=== PATIENT | male | born 1940 | race Caucasian/White ===

== ENCOUNTER 2018-10-07 10:58 | Inpatient (IN) ==
[2018-10-07] MEDS ORDERED: ASPIRIN PO ONE (11:06)
[2018-10-07 11:27] LABS: BASO# 0.02 X1000 (0.0-0.2); BASO% 0.3 % (0.0-0.8); EOS# 0.11 X1000 (0.0-0.7); EOS% 1.4 % (0.0-10.0); HEMATOCRIT 45.4 % (42.0-52.0); HEMOGLOBIN 14.8 g/dL (14.0-18.0); IMM GRAN# 0.02 X1000 (0.0-0.04); IMM GRAN% 0.3 % (0.0-0.5); LYMPH# 1.41 X1000 (1.2-3.4); LYMPH% 18.3 % (20.5-51.1); MCH 29.9 PG (27-31); MCHC 32.6 g/dL (33-37); MCV 91.7 FL (81-99); MONO# 0.46 X1000 (0.11-0.59); MPV 9.7 FL (7.4-10.4); NEUT# 5.69 X1000 (1.4-6.5); NEUT% 73.7 % (42.2-75.2); PLT 211 X1000 (130-400); RBC 4.95 XMIL (4.7-6.1); RDW 12.8 % (11.5-14.5); WBC 7.71 X1000 (4.8-10.8)
[2018-10-07] MEDS ORDERED: ROCEPHIN 1 GM in NS 50 ML IV ONE (11:38)
[2018-10-07] MEDS ORDERED: DUONEB (A & A) INH ONE (11:38)
[2018-10-07] MEDS ORDERED: SOLU-MEDROL IV ONE (11:38)
[2018-10-07 11:44] LABS: INR 1.06; PROTIME 14.3 Seconds (11.0-16.0)
[2018-10-07 11:45] LABS: PTT 40.6 Seconds (22.3-41.8)
[2018-10-07 11:49] LABS: AGAP 10; ALBUMIN 3.7 g/dL (3.5-5.0); ALKALINE PHOSPHATASE 89 U/L (32-122); BUN 13 mg/dL (8-22); CALCIUM 8.7 mg/dL (8.8-10.2); CHLORIDE 103 mmol/L (98-107); CK PROFILE 77 U/L (24-204); COSMO 287; CREATININE 0.7 mg/dL (0.7-1.2); ESTIMATED GFR > 60; GLUCOSE 165 mg/dL (70-104); GOT 18 U/L (10-34); GPT 12 U/L (10-44); POTASSIUM 4.4 mmol/L (3.5-5.1); SODIUM 142 mmol/L (136-145); TCO2 28 mmol/L (25-35)
--- NOTE | 2018-10-07 11:59 | Diag Imaging Result Doc PS360 ---
CHEST-2 VIEWS - 10/07/2018 INDICATION: dyspnea COMPARISON: 09/27/2018 FINDINGS: There are new extensive bibasilar infiltrates with faint curly B lines. There is cardiomegaly. There is blunting of the costophrenic angles suggesting trace pleural effusions. IMPRESSION: Cardiomegaly, pulmonary edema in the lung bases, trace pleural effusions. Electronically signed by Rivas Scott 10/07/2018 11:57 AM
--- NOTE | 2018-10-07 12:17 | EKG Report ---
Test Performed on : 10/07/2018 11:10:30 AM Test Reason : dyspnea Blood Pressure : / mmHG Vent. Rate : 108 BPM Atrial Rate : 267 BPM P-R Int : 000 ms QRS Dur : 096 ms QT Int : 310 ms P-R-T Axes : 000 068 162 degrees QTc Int : 415 ms Atrial fibrillation. with rapid ventricular response. Nonspecific ST and T wave abnormality Abnormal ECG When compared with ECG of 31-OCT-2017 02:25, Atrial fibrillation. has replaced Sinus rhythm. ST now depressed in Lateral leads Nonspecific T wave abnormality, worse in Inferior leads T wave inversion now evident in Lateral leads Unconfirmed Result
[2018-10-07 12:31] LABS: BE 4.7 mmoll (-3.0-3.0); BLOOD TYPE ARTERIAL; HCO3-(ACT) 28.4 mmoll (20.0-26.0); METHB 1.3 % (0.0-1.5); O2(CT) 18.9 mL/dL (15.0-23.0); PCO2(98.6) 48 mmHg (35-45); PO2(98.6) 64 mmHg (60-100); SAMPLE BLOOD; SAO2 95.5 % (95.0-100.0); THB 14.6 g/dL (11.5-17.4); pH(98.6) 7.41 (7.35-7.45)
[2018-10-07 12:34] LABS: ALLEN TEST YES; MODALITY CANNULA
[2018-10-07] MEDS ORDERED: LASIX IV ONE ×2 (12:50→21:00)
[2018-10-07] MEDS: DUONEB (A & A) INH SCH ×2 (15:12→19:56)
[2018-10-07] MEDS ORDERED: VENTOLIN HFA INH PRN (17:56)
--- NOTE | 2018-10-07 20:50 | Diag Imaging Result Doc PS360 ---
CT THORAX W/O CONTRAST - 10/07/2018 INDICATION: sob/infiltrates COMPARISON: Chest x-rays from earlier FINDINGS: There is cardiomegaly. There is advanced calcified coronary artery disease. There are trace bilateral pleural effusions. There is some infiltrate or atelectasis in the lung bases bilaterally. There is some hazy interstitial pulmonary edema. Major airways are clear. No adenopathy. Upper abdominal images are grossly normal. There are moderate degenerative changes of the spine. No acute or suspicious bony lesion. IMPRESSION: Cardiomegaly, pulmonary edema, trace pleural effusions, nonspecific mild atelectasis or infiltrates in the lung bases. This exam was performed using automated exposure control, adjustment of mA or kV according to patient size, and/or use of iterative reconstruction technique Electronically signed by Rivas Scott 10/07/2018 8:48 PM
[2018-10-08] MEDS: DUONEB (A & A) INH SCH ×3 (00:08→07:03)
[2018-10-08] MEDS: SOLU-MEDROL IV SCH ×2 (00:24→11:37)
[2018-10-08 06:14] LABS: HEMATOCRIT 43.1 % (42.0-52.0); HEMOGLOBIN 14.2 g/dL (14.0-18.0); MCH 29.8 PG (27-31); MCHC 32.9 g/dL (33-37); MCV 90.4 FL (81-99); MPV 9.5 FL (7.4-10.4); RBC 4.77 XMIL (4.7-6.1); RDW 12.6 % (11.5-14.5); WBC 9.96 X1000 (4.8-10.8)
[2018-10-08 06:37] LABS: AGAP 12; ALBUMIN 3.9 g/dL (3.5-5.0); ALKALINE PHOSPHATASE 85 U/L (32-122); BUN 20 mg/dL (8-22); CALCIUM 9.2 mg/dL (8.8-10.2); CHLORIDE 97 mmol/L (98-107); COSMO 282; CREATININE 0.8 mg/dL (0.7-1.2); ESTIMATED GFR > 60; GLUCOSE 164 mg/dL (70-104); GOT 12 U/L (10-34); GPT 12 U/L (10-44); POTASSIUM 3.9 mmol/L (3.5-5.1); SODIUM 138 mmol/L (136-145); TCO2 29 mmol/L (25-35); TOTAL PROTEIN 7.1 g/dL (6.3-8.3)
[2018-10-08] MEDS ORDERED: LASIX IV ONE (08:11)
[2018-10-08] MEDS ORDERED: PLAVIX PO SCH (09:00)
[2018-10-08] MEDS ORDERED: BENICAR PO SCH (09:00)
[2018-10-08] MEDS ORDERED: LEXISCAN ONE (09:00)
[2018-10-08] MEDS: FLOMAX PO SCH (09:15)
--- NOTE | 2018-10-08 09:57 | EKG Report ---
Test Performed on : 10/08/2018 09:22:27 AM Test Reason : chf Blood Pressure : / mmHG Vent. Rate : 101 BPM Atrial Rate : 267 BPM P-R Int : 000 ms QRS Dur : 108 ms QT Int : 354 ms P-R-T Axes : 000 065 108 degrees QTc Int : 459 ms Atrial fibrillation. with rapid ventricular response. Anterior infarct , age undetermined Abnormal ECG When compared with ECG of 07-OCT-2018 11:10, (Unconfirmed) No significant change was found Confirmed by Kenney Eaton MD ([id number]) on 10/10/2018 7:41:28 AM
[2018-10-08] MEDS ORDERED: CARDIZEM PO ONE (10:30)
[2018-10-08] MEDS: XOPENEX NEB INH SCH ×2 (14:59→22:42)
[2018-10-08] MEDS ORDERED: SODIUM CHLORIDE 0.9% INJ ONE (16:08)
--- NOTE | 2018-10-08 16:24 | CARDIOLOGY CONSULTATION ---
DATE: 10/08/2018 HISTORY OF PRESENT ILLNESS: Mr. Will is a 77-year-old gentleman who is admitted with increasing shortness of breath, COPD, and was noted to have atrial fibrillation. Cardiology was consulted. The patient has had known coronary artery disease, is a smoker, has had COPD, is admitted with increasing shortness of breath. He had a CT scan of his chest done, which revealed cardiomegaly, pulmonary edema with pleural effusion. He was treated with IV Lasix. Symptomatically, he has improved significantly. He does not complain of any chest pain suggestive of angina. There are no palpitations per se. Prior to this with increasing shortness of breath, he has noticed some palpitations. Prior to this, he has not had any significant palpitations. There is no dizziness or syncope. REVIEW OF SYSTEM: A 14-point review of systems was done.Gastrointestinal system: There is no history of nausea, vomiting, diarrhea. There is no history of hematemesis or melena. Central nervous system: No focal weakness to suggest a CVA or TIA. Genitourinary system: There is no dysuria or hematuria. PAST MEDICAL HISTORY: Coronary artery disease, status post last cardiac catheterization 03/25/2016. Left main artery was normal. Left main was normal. Left anterior descending artery mid stent had a 30% in-stent stenosis. Diagonal 30% stenosis. Circumflex proximal 30%. PDA 70% lesion. RCA had diffuse 75% mid and proximal lesion which was treated with a drug-eluting stent and PTCA. Last ejection fraction 2016 was 60%. HOME MEDICATIONS: Include: 1. Plavix 75 mg a day. 2. ProAir. 3. Benicar 40. 4. Plavix. 5. Albuterol inhalers 6. Tamsulosin 0.4. SOCIAL HISTORY: The patient is a smoker. There is no history of alcohol abuse. ALLERGIES: He is allergic to contrast dye. PHYSICAL EXAMINATION: Vital Signs: Blood pressure 115/60. Cardiovascular system: Normal jugular venous pressure. There was no thyromegaly. First and second heart sounds were heard. There was a scattered expiratory wheeze. Abdomen: Soft, nontender. There was no guarding or rigidity. Bowel sounds were heard. Central nervous system: Alert and oriented was moving all 4 extremities. Extremities: Examination of extremities revealed no pedal edema. HEENT: Atraumatic, normocephalic. Pupils were equal and reacting to light. LABORATORY EXAMINATION: Sodium 138, potassium 3.9, BUN 20, creatinine 0.8. ProBNP elevated at 2065. Cardiac enzymes negative. Magnesium 2.0. Hematology: Hemoglobin 14.2, hematocrit 43, platelet count of 217. ASSESSMENT AND PLAN: Mr. Calvin Will is a 77-year-old gentleman with history of chronic obstructive pulmonary disease (COPD), hypertension, tobacco abuse, coronary artery disease status post stent placement in the past. Last stent placement in 2016 to the right coronary artery. He had stent to the left anterior descending artery in the past. He comes in with complaints of increasing shortness of breath, was noted to be in atrial fibrillation. Patient has: 1. Systolic heart failure. He received Lasix. Currently he is euvolemic. Would recommend continuing Lasix from tomorrow at 40 mg p.o. daily. 2. We will get an echocardiogram to assess cardiac and valvular function. 3. He is in atrial fibrillation. Rate is under control which is recent. We will plan for treating with Cardizem CD 180 mg a day. In addition I will decrease his Benicar to 20 mg a day, given his blood pressures have been low at 115 and under control. 4. As far as his anticoagulation is concerned, I had a detailed discussion with the patient. Risks/benefits were explained. Patient will be started on Eliquis 5 mg twice a day. We will discontinue his Plavix. Put him on enteric-coated aspirin 81 mg a day. 5. Given his atrial fibrillation and new heart failure, we will plan for a Lexiscan Cardiolite stress test to rule out ischemia. 6. Hypertension. Changes to medications as above. 7. Patient has chronic obstructive pulmonary disease (COPD). He is being treated with steroids and inhalers. Recommend continuing current medications. Thank you for the consult. We will follow the hospital course. cc: MD Kenney Call MD MTDD
[2018-10-08] MEDS: ELIQUIS PO SCH ×2 (19:14→20:11)
[2018-10-09] MEDS: SOLU-MEDROL IV SCH ×3 (02:02→16:56)
[2018-10-09] MEDS: XOPENEX NEB INH SCH ×3 (03:34→15:53)
[2018-10-09] MEDS ORDERED: BENADRYL IV ONE (07:00)
[2018-10-09] MEDS ORDERED: PEPCID IV ONE (07:00)
[2018-10-09] MEDS ORDERED: BENICAR PO SCH (09:00)
[2018-10-09] MEDS ORDERED: ASPIRIN PO SCH (09:00)
[2018-10-09] MEDS ORDERED: CARDIZEM CD PO SCH (09:00)
[2018-10-09] MEDS ORDERED: LASIX PO SCH (09:00)
--- NOTE | 2018-10-09 09:55 | ECHO REPORT ---
ORDER DATE: 10/08/2018 INTERPRETING PHYSICIAN: Paulino Bazzi MD INDICATION: CHF. M-MODE MEASUREMENTS: Left ventricle end diastole: 6.2 cm. Left ventricle end systole: 5.8 cm. Posterior wall: 1.1 cm. Interventricular septum: 1.1 cm. Left atrium: 4.9 cm. Aortic root: 3.3 cm. SUMMARY OF 2-DIMENSIONAL IMAGIN. This study is difficulty. 2. The left ventricular chamber is dilated. Global systolic function is significantly impaired estimated at 30%. There is akinesis of the inferior wall on top of that. 3. The right ventricle appears to be only at the upper limits of normal. 4. The aortic valve opens normally. Color flow mapping is unremarkable. 5. The mitral valve opens normally. Color flow mapping indicates [id number] severe degree of mitral regurgitation. 6. The patient is in atrial fibrillation. 7. Pulsed wave Doppler of mitral inflow shows a single filling wave. 8. The mitral annulus could not be properly evaluated for diastolic dysfunction. 9. The pulmonic valve looks grossly normal. 10.The tricuspid valve shows a mild degree of regurgitation. 11.Pulmonary pressure is estimated at 51 mmHg. 12.There is no pericardial effusion and no sign of thrombus. Clinical correlation is recommended. cc: MD Kenney Quezada MD
[2018-10-09 12:54] VITALS: BP 120/65
[2018-10-09] MEDS: FLOMAX PO SCH (12:58)
[2018-10-09] MEDS: ELIQUIS PO SCH (12:58)
--- NOTE | 2018-10-09 16:05 | Diag Imaging Result Document ---
PROCEDURE NAME: MYOCARDIAL PERF SCAN, STR/REST - 10/09/2018 LEXISCAN CARDIOLITE STRESS TEST: Lexiscan was infused per standard protocol. Baseline atrial fibrillation was noted. Stress electrocardiogram baseline revealed nonspecific ST-T changes. Stress electrocardiogram was negative for ischemia. Following Lexiscan infusion, Cardiolite was injected, 14.1 mCi of Cardiolite was injected for the rest phase, 41 millicuries of Cardiolite was injected for the stress phase. Gated SPECT images were obtained in standard views. Images revealed significant chest wall attenuation. Left ventricle is dilated. There is moderate to severe grade fixed defect in the inferior wall diagnostic of infarct. In addition, there is fixed defect in the inferoapical wall. There is no definite evidence of ischemia. Left ventricular ejection fraction by gated SPECT was 32%. There is global hypokinesis. CONCLUSIONS: 1. Atrial fibrillation noted. 2. Negative Lexiscan stress electrocardiogram, no chest pain. 3. Myocardial perfusion images revealed no evidence of ischemia. 4. Left ventricle is dilated, left ventricular myocardial perfusion images revealed no evidence of ischemia. 5. There is severe grade, large-sized, fixed defect in the inferior inferoapical wall diagnostic of infarct or scar. Left ventricular ejection fraction 32%. cc: Otoniel Phillips MD
--- NOTE | 2018-10-12 13:56 | PROVIDER DOCUMENTATION ---
This chart was entered by Kianna Waite Scribe, acting as scribe for Frances Whitehead MD. HPI-Respiratory General - General Chief Complaint: Shortness of Breath Stated Complaint: SOB Time Seen by Provider: 10/07/18 11:00 Source: patient Allergies/Adverse Reactions: Patient Allergies Allergy/AdvReac Type Severity Reaction Status Date / Time contrast dye Allergy ANAPHYLAXIS Uncoded 09/27/18 19:11 Home Medications: Home Medication List Medication Instructions Recorded Confirmed Last Taken Type Albuterol Sulfate Inhaler 2 puff INH 4XDAY PRN PRN 03/11/17 11/01/17 10/27/17 12:00 History [Ventolin Hfa] Tamsulosin [Flomax] 0.4 mg PO DAILY 03/11/17 11/01/17 10/27/17 08:00 History Clopidogrel Bisulfate [Clopidogrel] 75 mg PO DAILY 10/27/17 11/01/17 10/27/17 08:00 History Furosemide [Lasix] 40 mg PO DAILY #30 tablet 11/07/17 Unknown Rx Hydrocodone/Acetaminophen [[place] 1 each PO Q4H PRN #30 tablet 11/07/17 Unknown Rx 10-325 Tablet] Doxycycline 100 mg PO BID #60 tablet 05/28/18 Unknown Rx Azithromycin [Zithromax Z-Reno] 250 mg PO DIRECTED #1 pkg 09/27/18 Unknown Rx Benzonatate [Tessalon] 100 mg PO TID PRN PRN #20 cap 09/27/18 Unknown Rx - History of Present Illness-Resp Nature of Presenting Problem: 77 yowm presents to the ed via pov for worsening sob. pt is chronic copd on home o2 @ 3LPM. pt sts he is still smoking and has recently been dx with an URI. pt on exam is speaking in complete sentences and is nontoxic in appearance Quality of Pain: reports: fullness Severity in ED: reports: mild Onset/Duration: reports: other (chronic but worsening laast 3 days) Timing: reports: intermittent, getting worse Context: reports: recent URI Cough Quality/Degree: reports: mild, productive cough Episode Frequency: chronic episodes Current Respiratory Medication Therapy: Initiated see nurses note Modifying Factors: worse with: exertion, lying down Associated Symptoms: reports: chest pain/soreness (with cough only), cough, shortness of breath, wheezing. denies: fever/chills, hurts to breathe, hyperventilating Similar Symptoms Previously?: Yes Recently seen or treated by another doctor?: Yes (came to ed dx with uri recently on medications) Review of Systems - Adult - REVIEW OF SYSTEMS - ADULT Constitutional: denies: chills, fever Eyes: reports: no symptoms reported Ears, Nose, Mouth & Throat: reports: no symptoms reported Cardiovascular: reports: see HPI, chest pain (chest wall soreness with cough only), irregular heart rate, orthopnea. denies: palpitations, syncope Respiratory: reports: see HPI, chronic cough, dyspnea on exertion, shortness of breath, wheezing Gastrointestinal: denies: abdominal pain, diarrhea, nausea, vomiting Genitourinary: reports: no symptoms reported Musculoskeletal: denies: back pain, neck pain Integumentary: reports: no symptoms reported Neurological: reports: no symptoms reported Psychiatric: reports: no symptoms reported Endocrine: reports: no symptoms reported Hematologic/Lymphatic: reports: no symptoms reported Allergic/Immunologic: reports: no symptoms reported All Other Systems: Reviewed and Negative Past History - Adult - PAST MEDICAL HISTORY-ADULT Review of Records: reports: Old Records Reviewed, Nursing Assessment Review, Medications Reviewed, Social history reviewed & non-contributory. Major Childhood Illnesses: reports: denies history Cardiovascular: reports: CAD, HTN Respiratory: reports: COPD Gastrointestinal: reports: denies history Genitourinary: reports: denies history Musculoskeletal: reports: arthritis, chronic pain Hand Dominance: Right Handed Neurological: reports: denies history Psychiatric: reports: denies history Endocrine/Immune: reports: denies history Other Conditions: reports: denies history - PRIOR SURGERIES/PROCEDURES Surgical/Procedure History: reports: cardiac stent - IMMUNIZATION STATUS Childhood Immunizations: See Nurse Assessment Flu Vaccine: See Nurse Assessment - FAMILY HISTORY Family History: reviewed, not pertinent - SOCIAL HISTORY Smoking: cigarettes, greater than 1 pack/day Provider spent 3-5 mins advising pt. on dangers of tobacco.: Discussed manners to quit use, and f/u contacts for add'l counseling. Substance Use: denies Alcohol Use Frequency: never Living Situation: family Physical Exam-General - PHYSICAL EXAM-ADULT Initial Vital Signs Reviewed: Yes - CONSTITUTIONAL General Appearance: appears well, alert, mild distress, obese - EYES Eyes: PERRL/EOMI, pink conjunctivae - HEAD, EARS, NOSE, MOUTH & THROAT HENMT: moist mucous membranes, normal ENT inspection - NECK Neck: non-tender, full range of motion, supple, normal inspection - RESPIRATORY Respiratory: no pleuratic chest pain, respiratory distress (mild), rhonchi, wheezing, increased rate (22) - CARDIOVASCULAR Cardiovascular: no edema, no JVD, no murmur, irregularly irregular (106) - GASTROINTESTINAL (ABDOMEN) Abdominal Exam: normal bowel sounds, non tender, soft - LYMPHATIC Lymphatic: no adenopathy - MUSCULOSKELETAL Back Exam: normal inspection, no CVA tenderness, no vertebral tenderness Extremity: normal range of motion, non-tender, normal gait, normal inspection, no pedal edema, no calf tenderness, normal capillary refill, pelvis stable - SKIN Integumentary: normal color, normal turgor, warm/dry - NEUROLOGIC Neurologic: grossly normal, no motor/sensory deficits - PSYCHIATRIC Psych/Mental Status: normal mood/affect, normal thought content, normal thought process, oriented x 3 Progress - PLAN OF CARE/RESULTS Progress/Plan/Lab Results: Vital Signs - 8 hr 10/07/18 11:00 10/07/18 12:35 Temperature 98.3 F Pulse Rate 100 H 78 Respiratory Rate 20 20 Blood Pressure 141/87 O2 Sat by Pulse Oximetry 95 94 L Laboratory Results - last 24 hr 10/07/18 10/07/18 10/07/18 11:18 11:18 11:18 WBC 7.71 RBC 4.95 Hgb 14.8 Hct 45.4 MCV 91.7 MCH 29.9 MCHC 32.6 L RDW Std Deviation 12.8 Plt Count 211 MPV 9.7 Immature Gran % (Auto) 0.3 Neut % (Auto) 73.7 Lymph % (Auto) 18.3 L [place] % (Auto) 6.0 Eos % (Auto) 1.4 Baso % (Auto) 0.3 Immature Gran # (Auto) 0.02 Neut # (Auto) 5.69 Lymph # (Auto) 1.41 [place] # (Auto) 0.46 Eos # (Auto) 0.11 Baso # (Auto) 0.02 PT INR PTT (Actin FS) Specimen Type Sample Site pH pCO2 pO2 HCO3 Base Excess Oxyhemoglobin ABG O2 Sat (Calculated) ABG O2 Saturation ABG Carboxyhemoglobin ABG Methemoglobin [place] Test A-a O2 Difference Total Hemoglobin Lactate Liter Flow Blood Gas Modality FiO2 % Sodium 142 Potassium 4.4 Chloride 103 Carbon Dioxide 28 Anion Gap 10 BUN 13 Creatinine 0.7 Estimated GFR/1.73 m2 > 60 BUN/Creatinine Ratio 19 Glucose 165 H Calculated Osmolality 287 Calcium 8.7 L Total Bilirubin 0.60 AST 18 ALT 12 Alkaline Phosphatase 89 Creatine Kinase 77 Troponin T [id number]-Zqjyhtapbyb Pept 1832 H Total Protein 7.0 Albumin 3.7 Globulin 3.0 Albumin/Globulin Ratio 1.0 10/07/18 10/07/18 10/07/18 11:18 11:18 12:19 WBC RBC Hgb Hct MCV MCH MCHC RDW Std Deviation Plt Count MPV Immature Gran % (Auto) Neut % (Auto) Lymph % (Auto) [place] % (Auto) Eos % (Auto) Baso % (Auto) Immature Gran # (Auto) Neut # (Auto) Lymph # (Auto) [place] # (Auto) Eos # (Auto) Baso # (Auto) PT 14.3 INR 1.06 PTT (Actin FS) 40.6 Specimen Type ARTERIAL Sample Site R RADIAL pH 7.41 pCO2 48 H pO2 64 HCO3 28.4 H Base Excess 4.7 H Oxyhemoglobin 92.0 L ABG O2 Sat (Calculated) 18.9 ABG O2 Saturation 95.5 ABG Carboxyhemoglobin 2.40 ABG Methemoglobin 1.3 [place] Test YES A-a O2 Difference 76.0 Total Hemoglobin 14.6 Lactate 0.90 Liter Flow 2.0 Blood Gas Modality CANNULA FiO2 % 28.0 Sodium Potassium Chloride Carbon Dioxide Anion Gap BUN Creatinine Estimated GFR/1.73 m2 BUN/Creatinine Ratio Glucose Calculated Osmolality Calcium Total Bilirubin AST ALT Alkaline Phosphatase Creatine Kinase Troponin T < 0.010 Hef-W-Sympfiobcfs Pept Total Protein Albumin Globulin Albumin/Globulin Ratio Orders Category Date Time Status Cardiac Monitoring DIRECTED Care 10/07/18 11:06 Active Oxygen Therapy- ED Nursing DIRECTED Care 10/07/18 11:06 Active Saline Loc NOW Care 10/07/18 11:06 Active CHEST-2 VIEWS [RAD] Stat Exams 10/07/18 11:06 Completed ABG [RESP] Routine Lab 10/07/18 12:19 Completed BLOOD CULTURE [BLDCUL] Stat Lab 10/07/18 12:02 Ordered CBC WITH ELECTRONIC DIFF [HEME] Stat Lab 10/07/18 11:18 Completed CK PROFILE [SP CHEM] Stat Lab 10/07/18 11:18 Completed COMPREHENSIVE METABOLIC PANEL [CHEM] Stat Lab 10/07/18 11:18 Completed PRO B-NATRIURETIC PEPTIDE Stat Lab 10/07/18 11:18 Completed PROTIME WITH INR [COAG] Stat Lab 10/07/18 11:18 Completed PTT [COAG] Stat Lab 10/07/18 11:18 Completed TROPONIN T Stat Lab 10/07/18 11:18 Completed Albuterol 2.5MG/Ipratrop 0.5MG [Duoneb (A & A)] Med 10/07/18 11:38 Discontinued 3 ml INH NOW ONE Aspirin Med 10/07/18 11:06 Discontinued 325 mg PO NOW ONE CefTRIAXONE [Rocephin] 1 gm Med 10/07/18 11:38 Discontinued 0.9% Sodium Chloride Inj [Ns] 50 ml IV NOW Furosemide [Lasix] Med 10/07/18 12:50 Discontinued 40 mg IV NOW ONE Methylprednisolone Sod Succ [Solu-Medrol] Med 10/07/18 11:38 Discontinued 125 mg IV NOW ONE Aerosol Treatments Routine Oth 10/07/18 11:40 Completed Aerosol Treatments Stat Oth 10/07/18 11:40 Completed CP/SOB/Palp >45 yrs of Age Stat Oth 10/07/18 11:06 Ordered EKG [EKG] Stat Ther 10/07/18 11:06 Draft Result Diagrams: 10/07/18 11:18 10/07/18 11:18 - REASSESSMENT Reassessment #1 Time Reassessed: 12:04 (pt is resting better) Status: improving Reassessment #2 Time Reassessed: 12:47 (pt is resting in bed and in no distress) Status: unchanged - EKG 1 Time of EKG reading by physician:: 11:10 EKG Read and Signed by:: Frances Whitehead EKG Interpretation (*Must complete 3 of following elements*): Abnormal Rate: 108 Rhythm: afib with rvr [place]: normal QRS: normal IA Interval: normal Prior EKG Comparison: changes noted Comments: nonspecific ST and T wave abnormality - XRAY 1 XRAY: Bilateral XRAY Study: Chest Impression: See EMR Report (CHEST-2 VIEWS - 10/07/2018 INDICATION: dyspnea COMPARISON: 09/27/2018 FINDINGS: There are new extensive bibasilar infiltrates with faint curly B lines. There is cardiomegaly. There is blunting of the costophrenic angles suggesting trace pleural effusions. IMPRESSION: Cardiomegaly, pulmonary edema in the lung bases, trace pleural effusions. Electronically signed by Rivas Scott 10/07/2018 11:57 AM 10/07/18 1157 Interpreting Physician: Rivas Scott MD Dictated Date/Time: 10/07/18 1156 cc: Frances Whitehead MD; Kenney Eaton MD) - CONSULTS/PCP/HOSPITALIST Notification #1 *Consult/PCP/Hospitalist*: dr eaton pcp Time Discussed: 12:42 Consult Disposition: Admit Departure - Departure Date of Disposition Decision: 10/07/18 Time of Disposition Decision: 12:38 DIAGNOSIS: COPD exacerbation, Tobacco use disorder CHF (congestive heart failure) Qualifiers: Heart failure type: unspecified Heart failure chronicity: chronic Qualified Code(s): I50.9 - Heart failure, unspecified Disposition: ADMITTED INPATIENT 09 Certified Medical Emergency: Emergent Condition: Stable Additional Freetext Instructions: ED Follow Up Instructions: You have been treated by a care provider in the Emergency Department. These instructions are being provided to you so you can have an understanding of how to care for yourself upon discharge. Upon discharge from the Emergency Department, you are responsible for making arrangements for follow-up care by a physician of your choice. Take all prescribed medications as directed. Return to the Emergency Department immediately for any new or worsening symptoms. You may call the Physician Referral phone number at [phone] to obtain a list of Physicians who are taking new patients. Referrals and Follow-Ups: Kenney Eaton MD [Primary Care Provider] - - Critical Care Note This patient required my direct & personal management of CC.: Yes Total Time (mins): 37 Critical Care Statement: This patient required my direct personal management to treat or rule out processes, the absence of which, could potentiallly result in sudden, clinically significant life or limb threatening deterioration. Attestation - Physician/ KEYUR Attestation Patient care was provided by Advanced Practice Provider:: No The physician spent face to face time with patient:: Yes Advanced Practice Provider documentation review:: Supervising physician onsite and consulted in the evaluation and care of this patient. The physician did have a face to face encounter with the patient. This chart was documented by the indicated scribe, (Kianna Waite Scribe) and accurately reflects the services I performed and decisions made by me, Frances Whitehead MD, as attested by the provider's signature.
--- NOTE | 2018-10-25 13:40 | HISTORY AND PHYSICAL ---
HISTORY OF PRESENT ILLNESS: This is a 77-year-old patient, an office patient followed for prostate disease and some issues with chronic pain. Ex-smoker with COPD. He presented to the emergency room with worsening shortness of breath. He has chronic obstructive pulmonary disease at home. O2 is worn at 3 L per minute. He continues to smoke. He recently had an upper respiratory infection. The patient is having difficulty speaking for shortness of breath but appeared to be nontoxic. He complained of a fullness in his chest. This had been going on for 3 days and had not been significantly any better or worse. He has had a cough. He hears himself wheezing. When he got here, temperature was 98, pulse was 100, respiratory rate 20, blood pressure was 141/87, O2 saturation was 95%. He had a CBC done in the ER which was normal. He had electrolytes done in the ER which were normal. BUN and creatinine were normal. Random blood sugar was 165. LFTs were all normal. Albumin was 3.7, globulin was 3. ProBNP was 1832. INR was 1.06. Blood gases showed pH of 7.4, pCO2 of 48, pO2 of 64 on 2 L. Troponin level was normal. He had some imaging reports done which included a chest x-ray which showed cardiomegaly, a pulmonary edema in the lung bases, trace pleural fluid. A CT of the thorax showed cardiomegaly, advanced calcified coronary artery disease. There were trace bilateral pleural effusions. There was some infiltrate or atelectasis in the lung bases bilaterally. There was some hazy interstitial pulmonary edema. Major airways are clear. No adenopathy. Upper images are grossly normal. There are moderate degenerative changes of the spine. No specific bone lesions. He had an EKG done which showed atrial fibrillation with rapid ventricular response, nonspecific ST segment changes. When compared to his previous EKG on 10/31/2017, atrial fibrillation has replaced sinus rhythm. He has nonspecific ST segment changes laterally. ALLERGIES: None. MEDICATIONS: Albuterol sulfate inhaler, Flomax, Plavix 75 daily, Lasix 40 daily, doxycycline 100 b.i.d. for recent cold symptoms. He has had azithromycin more recently. He takes Tessalon Perles, and he takes occasional [place]. REVIEW OF SYSTEMS: He denies any fever or chills. No change in visual acuity or any changes in his sclerae or conjunctivae. Pupils were equal, round, reactive. EOMs intact. Ears, nose and throat were negative. Cardiovascular: He had some chest pain which was described only with cough. He has an irregular heartbeat that he can tell. When he lies down, he becomes short of breath. He denies any syncope. Respiratory: He has a chronic cough, and he produces some phlegm occasionally. He is short of breath on exertion and gets to wheezing. Genitourinary: He has a low stream, otherwise negative. Musculoskeletal: Chronic back pain. Skin: Negative. Neurologic: No focal neurological deficits. Endocrine: No diabetes, thyroid or hypogonadism. Hematologic: No bleeding or clotting disorders. No significant anemia or other issues with his bone marrow. No significant allergies. PAST MEDICAL HISTORY: He has had hypertension, coronary artery disease, COPD, some mild CHF, and now a history of atrial fibrillation. PAST SURGICAL HISTORY: He denies any other significant surgical procedures other than the cardiac stent he got not too long ago. SOCIAL HISTORY: He still smokes greater than a pack of cigarettes a day. PHYSICAL EXAMINATION: VITAL SIGNS: At the time of admission, his temperature was 98.3, pulse was 100, O2 saturation was 95%, blood pressure was 141/87. Pulse was 105. HEENT: Head was normocephalic. Eyes were PERRLA. EOMs intact. Sclerae clear. Fundi benign. Nares patent. Oropharynx negative. NECK: Supple. Bounding carotids without thyromegaly. Midline trachea. CHEST: Bilaterally coarse breath sounds. Flattened diaphragms. ABDOMEN: Soft. No hepatosplenomegaly. No CVA tenderness. EXTREMITIES: Negative for cyanosis, clubbing or edema. ADMITTING DIAGNOSIS: Dyspnea. cc: Kenney Eaton MD
== END 2018-10-09 17:14 | disposition home or self-care (01) | DRG 309 ==
LOC: P.MEDSURG 10:58 → P.ED 10:58
PROVIDERS: ADMIT Internal Medicine; ATTEND Internal Medicine
CPT/HCPCS: 36415; 71020; 71046; 71250; 78452; 80053; 82550; 82805; 83735; 83880; 84484; 85025; 85027; 85610; 85730; 87040; 93005; 93010; 93017; 93306; 94640; 94667; 94668; 94761; 96374; 96375; 99285; A9270; A9500; J0696; J1200; J1940; J2785; J2930; S0028

== ENCOUNTER 2019-03-09 19:46 | Inpatient (IN) ==
[2019-03-09] MEDS ORDERED: DUONEB (A & A) INH ONE (20:24)
[2019-03-09] MEDS ORDERED: SOLU-MEDROL IV ONE (20:24)
[2019-03-09 20:47] LABS: BASO# 0.03 X1000 (0.0-0.2); BASO% 0.4 % (0.0-0.8); EOS# 0.27 X1000 (0.0-0.7); EOS% 3.4 % (0.0-10.0); HEMATOCRIT 42.9 % (42.0-52.0); HEMOGLOBIN 14.4 g/dL (14.0-18.0); LYMPH% 24.1 % (20.5-51.1); MCH 29.7 PG (27-31); MCHC 33.6 g/dL (33-37); MCV 88.5 FL (81-99); MONO# 0.49 X1000 (0.11-0.59); MONO% 6.2 % (1.7-9.3); MPV 9.3 FL (7.4-10.4); NEUT# 5.18 X1000 (1.4-6.5); NEUT% 65.9 % (42.2-75.2); PLT 176 X1000 (130-400); RBC 4.85 XMIL (4.7-6.1); RDW 13.2 % (11.5-14.5); WBC 7.87 X1000 (4.8-10.8)
--- NOTE | 2019-03-09 20:48 | Diag Imaging Result Doc PS360 ---
EXAM: CHEST-1 VIEW 03/09/2019 HISTORY: sob TECHNIQUE: AP portable at 2040 COMMENT: There is alveolar opacity in the lung bases particularly the right lower lobe. This was not the case on 10/11/2018. The heart size remains at the upper limits of normal. IMPRESSION: Pneumonia and/or pulmonary edema. Electronically signed by Eric Higgins 03/09/2019 8:46 PM
[2019-03-09 20:56] LABS: AGAP 11; ALB/GLOB RATIO 1.9; ALBUMIN 4.2 g/dL (3.5-5.0); ALKALINE PHOSPHATASE 90 U/L (32-122); BUN 12 mg/dL (8-22); CALCIUM 9.3 mg/dL (8.8-10.2); CHLORIDE 106 mmol/L (98-107); COSMO 287; CREATININE 0.7 mg/dL (0.7-1.2); ESTIMATED GFR > 60; GLUCOSE 146 mg/dL (70-104); GOT 14 U/L (10-34); GPT 12 U/L (10-44); POTASSIUM 3.7 mmol/L (3.5-5.1); SODIUM 143 mmol/L (136-145); TCO2 26 mmol/L (25-35); TOTAL BILIRUBIN 0.77 mg/dL (0.20-1.00); TOTAL PROTEIN 6.4 g/dL (6.3-8.3)
[2019-03-09] MEDS ORDERED: ROCEPHIN 1 GM in NS 50 ML IV ONE (21:24)
[2019-03-09] MEDS ORDERED: ZITHROMAX 500 MG/NS 500 MG/250 ML IVPB IV ONE (21:25)
--- NOTE | 2019-03-09 21:31 | EKG Report ---
Test Performed on : 03/09/2019 7:53:40 PM Test Reason : sob Blood Pressure : / mmHG Vent. Rate : 095 BPM Atrial Rate : 416 BPM P-R Int : 000 ms QRS Dur : 112 ms QT Int : 342 ms P-R-T Axes : 000 076 016 degrees QTc Int : 429 ms Atrial fibrillation. Incomplete left bundle branch block ST depression, consider subendocardial injury Nonspecific T wave abnormality Abnormal ECG When compared with ECG of 11-OCT-2018 17:17, No significant change was found Unconfirmed Result
--- NOTE | 2019-03-09 21:39 | PROVIDER DOCUMENTATION ---
This chart was entered by Camryn Molina Scribe, acting as scribe for Oneal Ventura MD. HPI-Respiratory General - General Chief Complaint: Shortness of Breath Stated Complaint: SOB Time Seen by Provider: 03/09/19 20:09 Source: patient Allergies/Adverse Reactions: Patient Allergies Allergy/AdvReac Type Severity Reaction Status Date / Time Iodinated Contrast- Oral and Allergy Severe ANAPHYLAXIS Verified 10/15/18 09:44 IV Dye contrast dye Allergy ANAPHYLAXIS Uncoded 09/27/18 19:11 Home Medications: Home Medication List Medication Instructions Recorded Confirmed Last Taken Type Tamsulosin [Flomax] 0.4 mg PO DAILY 03/11/17 10/07/18 10/27/17 08:00 History Albuterol Sulfate [Proair Hfa] 2 puff INH PRN PRN 10/07/18 10/07/18 Unknown His tory Clopidogrel Bisulfate [Clopidogrel] 75 mg PO DAILY 10/07/18 10/07/18 Unknown History Olmesartan Medoxomil 40 mg PO DAILY 10/07/18 10/07/18 Unknown History - History of Present Illness-Resp Nature of Presenting Problem: pt is a 78 yr old male presenting with increased shortness of breath x5-7 days, hx of COPD and pneumonia. pt believes he has pneumonia again. Quality of Pain: reports: none Severity in ED: reports: moderate Onset/Duration: reports: other (5-7days) Timing: reports: still present Exposure: reports: unknown cause Cough Quality/Degree: reports: moderate Episode Frequency: frequent episodes Current Respiratory Medication Therapy: Initiated see nurses note Modifying Factors: improves with: exertion (worsens), oxygen (no improvement) Associated Symptoms: reports: cough, shortness of breath, wheezing. denies: chest pain/soreness, fever/chills Similar Symptoms Previously?: Yes Recently seen or treated by another doctor?: Yes Review of Systems - Adult - REVIEW OF SYSTEMS - ADULT Constitutional: denies: chills, fever Eyes: reports: no symptoms reported Ears, Nose, Mouth & Throat: reports: no symptoms reported Cardiovascular: denies: chest pain, palpitations, syncope Respiratory: reports: cough, dyspnea on exertion, shortness of breath Gastrointestinal: reports: no symptoms reported Genitourinary: reports: no symptoms reported Musculoskeletal: denies: back pain, muscle aches Integumentary: reports: no symptoms reported Neurological: denies: dizziness/vertigo, headache/migraines, syncope Psychiatric: reports: no symptoms reported Endocrine: reports: no symptoms reported Hematologic/Lymphatic: reports: no symptoms reported Allergic/Immunologic: reports: no symptoms reported All Other Systems: Reviewed and Negative Past History - Adult - PAST MEDICAL HISTORY-ADULT Review of Records: reports: Old Records Reviewed, Nursing Assessment Review, Medications Reviewed, Social history reviewed & non-contributory. Major Childhood Illnesses: reports: denies history Cardiovascular: reports: HTN Respiratory: reports: COPD Gastrointestinal: reports: denies history Obstetrical/Gynecological: reports: denies history Genitourinary: reports: denies history Musculoskeletal: reports: denies history Neurological: reports: denies history Psychiatric: reports: denies history Endocrine/Immune: reports: denies history Other Conditions: reports: denies history - PRIOR SURGERIES/PROCEDURES Surgical/Procedure History: reports: cardiac stent - IMMUNIZATION STATUS Childhood Immunizations: See Nurse Assessment Flu Vaccine: See Nurse Assessment - FAMILY HISTORY Family History: reviewed, not pertinent - SOCIAL HISTORY Smoking: cigarettes Provider spent 3-5 mins advising pt. on dangers of tobacco.: Discussed manners to quit use, and f/u contacts for add'l counseling. Living Situation: family Physical Exam-General - PHYSICAL EXAM-ADULT Initial Vital Signs Reviewed: Yes - CONSTITUTIONAL General Appearance: appears well, alert, no apparent distress - EYES Eyes: PERRL/EOMI - HEAD, EARS, NOSE, MOUTH & THROAT HENMT: normocephalic/atraumatic, moist mucous membranes - NECK Neck: non-tender, full range of motion, supple, normal inspection - RESPIRATORY Respiratory: chest non-tender, lungs clear, normal breath sounds - CARDIOVASCULAR Cardiovascular: normal peripheral pulses, regular rate, rhythm, no edema - GASTROINTESTINAL (ABDOMEN) Abdominal Exam: normal bowel sounds, non tender, soft - LYMPHATIC Lymphatic: no adenopathy - MUSCULOSKELETAL Back Exam: normal inspection, no CVA tenderness, no vertebral tenderness Extremity: normal range of motion, non-tender, normal gait, normal inspection - SKIN Integumentary: normal color, normal turgor, warm/dry - NEUROLOGIC Neurologic: grossly normal - PSYCHIATRIC Psych/Mental Status: normal mood/affect Progress - PLAN OF CARE/RESULTS Progress/Plan/Lab Results: Vital Signs - 8 hr 03/09/19 20:05 03/09/19 20:34 Temperature 98.2 F Pulse Rate 101 H 91 H Respiratory Rate 20 20 Blood Pressure 142/90 O2 Sat by Pulse Oximetry 95 95 Laboratory Results - last 24 hr 03/09/19 03/09/19 03/09/19 20:00 20:00 20:00 WBC 7.87 RBC 4.85 Hgb 14.4 Hct 42.9 MCV 88.5 MCH 29.7 MCHC 33.6 RDW Std Deviation 13.2 Plt Count 176 MPV 9.3 Immature Gran % (Auto) 0.0 Neut % (Auto) 65.9 Lymph % (Auto) 24.1 Zavala % (Auto) 6.2 Eos % (Auto) 3.4 Baso % (Auto) 0.4 Immature Gran # (Auto) 0.00 Neut # (Auto) 5.18 Lymph # (Auto) 1.90 Zavala # (Auto) 0.49 Eos # (Auto) 0.27 Baso # (Auto) 0.03 Sodium 143 Potassium 3.7 Chloride 106 Carbon Dioxide 26 Anion Gap 11 BUN 12 Creatinine 0.7 Estimated GFR/1.73 m2 > 60 BUN/Creatinine Ratio 17 Glucose 146 H Calculated Osmolality 287 Calcium 9.3 Total Bilirubin 0.77 AST 14 ALT 12 Alkaline Phosphatase 90 Troponin T Nro-P-Mainctlllun Pept 1420 H Total Protein 6.4 Albumin 4.2 Globulin 2.2 Albumin/Globulin Ratio 1.9 03/09/19 20:00 WBC RBC Hgb Hct MCV MCH MCHC RDW Std Deviation Plt Count MPV Immature Gran % (Auto) Neut % (Auto) Lymph % (Auto) Zavala % (Auto) Eos % (Auto) Baso % (Auto) Immature Gran # (Auto) Neut # (Auto) Lymph # (Auto) Zavala # (Auto) Eos # (Auto) Baso # (Auto) Sodium Potassium Chloride Carbon Dioxide Anion Gap BUN Creatinine Estimated GFR/1.73 m2 BUN/Creatinine Ratio Glucose Calculated Osmolality Calcium Total Bilirubin AST ALT Alkaline Phosphatase Troponin T < 0.010 Avw-M-Txvchrffsmt Pept Total Protein Albumin Globulin Albumin/Globulin Ratio Orders Category Date Time Status Nursing- Obtain EKG ONCE Care 03/09/19 20:23 Active CHEST-1 VIEW [RAD] Stat Exams 03/09/19 20:23 Completed BLOOD CULTURE [BLDCUL] Stat Lab 03/09/19 20:33 Results CBC WITH ELECTRONIC DIFF [HEME] Stat Lab 03/09/19 20:00 Completed COMPREHENSIVE METABOLIC PANEL [CHEM] Stat Lab 03/09/19 20:00 Completed PRO B-NATRIURETIC PEPTIDE Stat Lab 03/09/19 20:00 Completed TROPONIN T Stat Lab 03/09/19 20:00 Completed Albuterol 2.5MG/Ipratrop 0.5MG [Duoneb (A & A)] Med 03/09/19 20:24 Discontinued 3 ml INH NOW ONE Azithromycin 500 mg/Ns [Zithromax 500 mg/Ns] Med 03/09/19 21:25 Active 500 mg in 250 ml IV NOW CefTRIAXONE [Rocephin] 1 gm Med 03/09/19 21:24 Active 0.9% Sodium Chloride Inj [Ns] 50 ml IV NOW Methylprednisolone Sod Succ [Solu-Medrol] Med 03/09/19 20:24 Discontinued 125 mg IV NOW ONE Aerosol Treatments Routine Oth 03/09/19 20:24 Completed Aerosol Treatments Stat Oth 03/09/19 20:24 Completed EKG [EKG] Stat Ther 03/09/19 20:23 Draft Result Diagrams: 03/09/19 20:00 03/09/19 20:00 - EKG 1 Time of EKG reading by physician:: 19:53 EKG Read and Signed by:: Oneal Ventura EKG Interpretation (*Must complete 3 of following elements*): Abnormal (non specific t wave abnormality) Rate: 95 Rhythm: afib QRS: LBB (incomplete) ST Wave: depressed (st depression consider subendocardial injury) - XRAY 1 XRAY Study: Chest Impression: Abnormal ( Signed EXAM: CHEST-1 VIEW 03/09/2019 HISTORY: sob TECHNIQUE: AP portable at 2040 COMMENT: There is alveolar opacity in the lung bases particularly the right lower lobe. This was not the case on 10/11/2018. The heart size remains at the upper limits of normal. IMPRESSION: Pneumonia and/or pulmonary edema. Electronically signed by Eric Higgins 03/09/2019 8:46 PM 03/09/192045 Interpreting Physician: Eric Higgins MD Dictated Date/Time: 03/09/192044 cc: Oneal Ventura MD; Kenney Eaton MD) Comparison with other Films: changes noted (10/11/18) Departure - Departure Date of Disposition Decision: 03/09/19 Time of Disposition Decision: 21:38 DIAGNOSIS: Acute exacerbation of chronic obstructive pulmonary disease Pneumonia Qualifiers: Pneumonia type: due to unspecified organism Laterality: right Lung location: lower lobe of lung Qualified Code(s): J18.1 - Lobar pneumonia, unspecified organism Disposition: ADMITTED INPATIENT 09 Certified Medical Emergency: Emergent Condition: Stable Referrals and Follow-Ups: Kenney Eaton MD [Primary Care Provider] - - Critical Care Note This patient required my direct & personal management of CC.: No Attestation - Physician/ KEYUR Attestation Patient care was provided by Advanced Practice Provider:: No The physician spent face to face time with patient:: Yes Advanced Practice Provider documentation review:: Supervising physician onsite and consulted in the evaluation and care of this patient. The physician did have a face to face encounter with the patient. This chart was documented by the indicated scribe, (Camryn Molina, Dawson) and accurately reflects the services I performed and decisions made by me, Oneal Ventura MD, as attested by the provider's signature.
[2019-03-09] MEDS ORDERED: LASIX IV ONE (22:19)
--- NOTE | 2019-03-09 23:12 | HISTORY AND PHYSICAL ---
Patient of Dr. Moulton. REASON FOR ADMISSION: One-week history of progressive worsening shortness of breath. HISTORY OF PRESENT ILLNESS: Mr. Calvin Will 78-year-old male past medical history of systolic heart failure EF 30%, COPD, BPH, hypertensive heart disease, atrial fibrillation, peripheral arterial disease who comes in today complaining of 1-week history of progressive shortness of breath which precipitously got worse 3 days ago. States that he has also developed simultaneous cough over the last 3 days which has been nonproductive. He denies any chest pain, any fever or chills. No close contacts. No PND or orthopnea. No leg swelling. He says over the last couple of days in addition to shortness of breath he has been profoundly weak. Denies any GI, complaints. No focal neurological complaints. No polyuria or polydipsia. No new onset rash or arthralgia. No change in his current medication. REVIEW OF SYSTEMS: Twelve system review done positive finding per HPI. ALLERGIES: IV dye. HOME MEDICATION: Has been officially reconciled but he says he takes Flomax, he is on Lasix, Eliquis, takes albuterol nebulizer treatments. Old records suggest he was taking aspirin 81 mg and olmesartan and Cartia XT but these need to be officially reconciled . SURGICAL HISTORY: Notable for circumcision, stent placement. SOCIAL HISTORY: Smokes 1 pack a day, no alcohol, illicit drug use. FAMILY HISTORY: Notable for diabetes and heart disease in first-degree relatives. LAB WORK: Shows a right lower lobe infiltrate possible with slight increased vascular markings. White count 7000, hemoglobin and hematocrit 14, 42, platelets. 176,000, normal differential. Glucose is 146, troponin 70, proBNP 1420. EXAMINATION: A chronically ill elderly man who is not in acute distress he is A, O x3 normal mood and affect. Head is normocephalic, atraumatic. IRMA, EOMI. Anicteric not pale .ENT: Oropharynx normal . Neck: Supple. No JVD noted, no bruit, thyromegaly. Chest: Bibasilar crepitations, lungs expiratory wheezes, decreased air entry both lung james. Cardiovascular: First and sounds heard. No gallops, murmurs, rubs. Rhythm is irregular. Abdomen: Protuberant, soft, no tenderness megaly, bowel sounds normal. Rectal exam deferred this time . Extremities: No edema, no clubbing peripheral cyanosis, distal pulse symmetrical distally lower extremities. Rhythm is irregular but symmetrical. Neurological: No gross focal deficit. Skin is intact, no breakdown, lesion, erythema. Musculoskeletal: Grossly normal. ASSESSMENT: 1. Right lower lobe pneumonia. 2. Acute mild heart failure with depressed left ventricular function ejection fraction 30%. 3. Chronic obstructive pulmonary disease on home O2. 4. Congestive heart disease. 5. Atrial fibrillation. 6. Benign prostatic hypertrophy. PLAN: Patient admitted and treated with IV antibiotics for presumptive pneumonia. Will continue also with bronchodilation i.e. DuoNeb. However we need to be vigilant because of the potential effects of ipratropium bromide on patient's prostate tissue. This may cause may potentially increase his risk of urinary retention. Recommend repeating chest film in 2 days to see if underlying edema is improved. Patient's symptoms do not improve within [address] scan to rule out possibility of a more ominous. Pathology and please reconcile patient's medications in a.m. once available. cc: Kenney Eaton MD [facility]
[2019-03-10] MEDS ORDERED: TYLENOL PO PRN (00:12)
[2019-03-10] MEDS: ROCEPHIN 1 GM in NS 50 ML IV SCH ×2 (00:50→23:37)
[2019-03-10] MEDS: DUONEB (A & A) INH SCH ×4 (03:35→21:10)
[2019-03-10 07:01] LABS: BASO# 0.01 X1000 (0.0-0.2); BASO% 0.2 % (0.0-0.8); HEMATOCRIT 44.7 % (42.0-52.0); HEMOGLOBIN 14.8 g/dL (14.0-18.0); LYMPH# 0.48 X1000 (1.2-3.4); LYMPH% 7.9 % (20.5-51.1); MCH 29.6 PG (27-31); MCHC 33.1 g/dL (33-37); MCV 89.4 FL (81-99); MONO# 0.03 X1000 (0.11-0.59); MONO% 0.5 % (1.7-9.3); MPV 9.6 FL (7.4-10.4); NEUT# 5.58 X1000 (1.4-6.5); NEUT% 91.4 % (42.2-75.2); PLT 177 X1000 (130-400); RDW 13.4 % (11.5-14.5)
[2019-03-10 07:10] LABS: AGAP 10; BUN 13 mg/dL (8-22); CALCIUM 9.3 mg/dL (8.8-10.2); CHLORIDE 107 mmol/L (98-107); COSMO 293; CREATININE 0.8 mg/dL (0.7-1.2); ESTIMATED GFR > 60; GLUCOSE 142 mg/dL (70-104); POTASSIUM 4.3 mmol/L (3.5-5.1); SODIUM 146 mmol/L (136-145); TCO2 29 mmol/L (25-35)
[2019-03-10 08:04] LABS: BANDS 4 % (0-1); LYMPHS 6 % (21-51); SEGS 90 % (42-75)
[2019-03-10] MEDS ORDERED: LASIX PO SCH (09:00)
[2019-03-10] MEDS: ZITHROMAX PO SCH (09:18)
[2019-03-10] MEDS: ELIQUIS PO SCH ×2 (09:18→20:59)
[2019-03-10] MEDS ORDERED: NORCO-5 PO PRN (10:32)
[2019-03-10] MEDS: CARDIZEM CD PO SCH (11:13)
--- NOTE | 2019-03-10 15:29 | PROGRESS NOTE ---
DATE: 03/10/2019 SUBJECTIVE: Patient feels like he is breathing a bit better. He is still on fairly high-flow O2. OBJECTIVE: Blood pressure 113/70, heart rate 70, respiratory 19, temperature 97.3 degrees, 98% on 3 L.Cardiovascular: Regular rate and rhythm. Pulmonary: Bilateral breath sounds. Clear to auscultation. GI: Soft, nontender. PROBLEM LIST: 1. Pneumonia. He has a pneumonia and pulmonary edema, it looks like. We will continue empiric antibiotics. He is on Rocephin and azithromycin. 2. Acute congestive heart failure exacerbation. We will continue diuretics and follow. He is just on oral diuretics. I may continue some IV diuretics because it looks like he is still kind of overloaded. He is also really wanting his primary cap lining machine operator to check on him, which is Dr. Phillips. We will consult Cardiology. 3. Atrial fibrillation is rate controlled. He is on anticoagulation. He says he has been taken off Plavix but Eliquis is not listed in his home medications so I am not sure. I am looking at his medications. It looks like Dr. Eaton is his main doctor, but I do not see that he is on any anticoagulation, but he is 78, reportedly has heart failure. We will get an echo, Cardiology opinion and we will start Eliquis and follow. DISPOSITION: Pending his clinical status. cc: Maulik St MD
[2019-03-10] MEDS: LASIX IV SCH (16:23)
--- NOTE | 2019-03-10 18:28 | CONSULTATION ---
DATE OF CONSULTATION: 03/10/2019 IMPRESSION: 1. Dyspnea and cough. Chest x-ray suggests right lower lobe pneumonia. 2. Cardiomyopathy. 3. Atherosclerotic coronary disease with a history of previous coronary angioplasty/stents in the past. 4. Permanent atrial fibrillation. 5. Chronic obstructive pulmonary disease. 6. Peripheral vascular disease. RECOMMENDATIONS: 1. Continue to treat right lower lobe pneumonia as you are doing. 2. Limited diuresis may prove beneficial. However primary issue appears to be predominantly right lower lobe pneumonia. 3. Continue anticoagulation and rate control as primary management of atrial fibrillation. 4. Continue to manage atrial fibrillation with rate control and long-term anticoagulation. 5. Repeat echocardiography. HISTORY: This 78-year-old white male with past history of atherosclerotic coronary disease, cardiomyopathy, permanent atrial fibrillation, and COPD was admitted with several days of progressive shortness of breath as well as cough. He has not had very much in the way of sputum production. He has not had any fever. There has been no angina. He came emergency room last night for evaluation and was admitted for suspected right lower lobe pneumonia. He denies angina or orthopnea. He quit smoking about 8 days ago with taoist of dyspnea symptoms. PAST MEDICAL HISTORY: 1. Atherosclerotic coronary disease. 2. Cardiomyopathy. Echocardiography in September of this year indicated left ejection fraction 30%. 3. Chronic obstructive pulmonary disease. 4. Permanent atrial fibrillation. 5. Peripheral vascular disease. 6. Hypertensive cardiovascular disease. 7. Prostate hypertrophy. 8. He is allergic or intolerant iodinated contrast. MEDICATIONS PRIOR TO ADMISSION: As listed. SOCIAL HISTORY: He smokes 1 pack of cigarettes per day up until about 8 days ago. He does not use alcohol. FAMILY HISTORY: Negative for premature coronary disease. REVIEW OF SYSTEMS: Pulmonary: Noteworthy for shortness of breath and cough but little sputum production. Gastrointestinal: Negative. Constitutional: Negative for fever. Remainder of review of systems negative/noncontributory with 14 total systems reviewed. PHYSICAL EXAMINATION: General: A pleasant older white male in no distress. Vital signs: Blood pressure 113/48, heart rate 78, oxygen saturation 98% on nasal cannula oxygen at 2 L/minute. HEENT: Extraocular movements intact. Mucous membranes are moist. Neck: Supple. No jugular venous distention. No carotid bruits. Chest: Auscultation of the chest reveals diminished breath sounds diffusely. Cardiac Exam: Reveals an irregular rate and rhythm without appreciable murmur or gallop. Abdomen: Soft. Bowel sounds are normal. Extremities: Without edema. Neurologic: Reveals him to be alert and fully oriented. Speech is fluent. Moves all 4 extremities equally well. Skin: Warm dry. Psychiatric: Reveals mood to be appropriate. 12 lead EKG demonstrates atrial fibrillation. Nonspecific interventricular conduction delay and nonspecific ST and T-wave abnormality. Occasional premature ventricular aberrantly conducted complexes, demonstrated. Chest x-ray was reviewed and demonstrates infiltrate right lower lobe. Cardiomegaly demonstrated. LABORATORY DATA: Includes a white blood cell count of 6.1, hematocrit 44.7, hemoglobin 14.8, platelet count 177,000 sodium 146, potassium 4.3, chloride 107, carbon dioxide 29, BUN 13, creatinine 0.8, glucose 142, troponin T less than 0.01. cc: Joshua Ramirez MD
[2019-03-10] MEDS: NORCO-5 PO PRN (21:00)
[2019-03-10] MEDS: MUCOMYST 20% INH SCH (21:10)
[2019-03-11] MEDS: LASIX IV SCH ×2 (03:41→16:56)
[2019-03-11] MEDS: DUONEB (A & A) INH SCH ×4 (04:41→22:07)
[2019-03-11 06:45] LABS: AGAP 8; BUN 27 mg/dL (8-22); CHLORIDE 101 mmol/L (98-107); COSMO 282; CREATININE 0.9 mg/dL (0.7-1.2); ESTIMATED GFR > 60; GLUCOSE 112 mg/dL (70-104); POTASSIUM 4.1 mmol/L (3.5-5.1); SODIUM 138 mmol/L (136-145); TCO2 29 mmol/L (25-35)
[2019-03-11 06:57] LABS: HEMATOCRIT 42.9 % (42.0-52.0); HEMOGLOBIN 14.1 g/dL (14.0-18.0); IMM GRAN# 0.03 X1000 (0.0-0.04); IMM GRAN% 0.2 % (0.0-0.5); LYMPH# 1.19 X1000 (1.2-3.4); LYMPH% 8.2 % (20.5-51.1); MCH 29.6 PG (27-31); MCHC 32.9 g/dL (33-37); MCV 89.9 FL (81-99); MONO# 0.98 X1000 (0.11-0.59); MONO% 6.7 % (1.7-9.3); MPV 9.4 FL (7.4-10.4); NEUT# 12.37 X1000 (1.4-6.5); NEUT% 84.9 % (42.2-75.2); PLT 179 X1000 (130-400); RBC 4.77 XMIL (4.7-6.1); RDW 13.4 % (11.5-14.5); WBC 14.57 X1000 (4.8-10.8)
[2019-03-11] MEDS ORDERED: NON-FORMULARY MED (Meloxicam 15 MG) PO SCH (09:00)
[2019-03-11] MEDS ORDERED: PLAVIX PO SCH (09:00)
[2019-03-11] MEDS ORDERED: BENICAR PO SCH (09:00)
[2019-03-11] MEDS ORDERED: FLOMAX PO SCH ×2 (09:00→21:00)
--- NOTE | 2019-03-11 09:49 | Diag Imaging Result Doc PS360 ---
EXAM: CHEST-2 VIEWS HISTORY: pna VS chf TECHNIQUE: Chest two views COMPARISON: 03/09/2019 FINDINGS: The lungs are well expanded. Marked interval improvement in the infiltrates. The vessels are not distended. No pleural effusions. IMPRESSION: Marked interval improvement. No pulmonary edema on the current exam. Electronically signed by Stevo Esparza 03/11/2019 9:47 AM
[2019-03-11] MEDS: MUCOMYST 20% INH SCH ×2 (09:50→22:07)
[2019-03-11] MEDS: ASPIRIN EC PO SCH (10:20)
[2019-03-11] MEDS: ELIQUIS PO SCH ×2 (10:21→20:18)
[2019-03-11] MEDS: CARDIZEM CD PO SCH (10:21)
[2019-03-11] MEDS: ZITHROMAX PO SCH (10:21)
[2019-03-11] MEDS: NORCO-5 PO PRN ×2 (10:33→20:19)
--- NOTE | 2019-03-11 13:29 | ECHO REPORT ---
ORDER DATE: 03/10/2019 INDICATION FOR THE STUDY: Atrial fibrillation, shortness of breath, heart failure. FINDINGS: 1. Right atrium appears enlarged. 2. Mild tricuspid regurgitation. RV systolic pressure of 36. 3. Dilated right ventricle with mild reduction in RV systolic function. 4. No significant pulmonic insufficiency. 5. Severe left atrial enlargement with a volume index of 69. 6. No mitral valve prolapse. Moderate mitral regurgitation. No evidence of mitral stenosis. 7. Dilated left ventricle with an end-diastolic dimension of 6.8 cm. Mild left ventricular hypertrophy with a posterior and interventricular septal wall thickness of 1.2 and 1.3 cm respectively. Severe reduction in LV systolic function with an estimated EF of 15 to 20 percent. Severe global hypokinesis. No evidence of LV thrombus was identified with injection of Optison. 8. Aortic valve opens well. It is sclerotic. No evidence of stenosis or insufficiency. 9. Aorta appears normal in visualized segments. 10. No pericardial effusion identified. cc: MD Maulik Gonsalez MD
--- NOTE | 2019-03-11 16:45 | PROGRESS NOTE ---
DATE: 03/11/2019 SUBJECTIVE: Patient has no major complaints. He is up and walking in a bright orange safety for that is his own, but he is walking, ambulating. No wheezing. Breathing has improved. OBJECTIVE: Vital Signs: Blood pressure 119/77, heart rate 60, respiratory rate 20, temperature 97.6 degrees, 98% on room air. Cardiovascular: Regular rate and rhythm. Pulmonary: Bilateral breath sounds clear to auscultation. Gastrointestinal: Soft, nontender, nondistended. Bowel sounds are positive. LABORATORY DATA: White count 14, hemoglobin 14, hematocrit 42, platelets 179,000. PROBLEM LIST: 1. Pneumonia. I believe he has a left lower lobe pneumonia or maybe bilateral lower lobe pneumonia. He is on Rocephin, azithromycin. Seems better. White count did jump up, but I am not sure if that is because of diuresis, possible steroids. He is not currently on steroids, though. 2. Acute systolic congestive heart failure exacerbation. I appreciate Cardiology input. I think we have stopped Lasix. I think I gave him a couple doses last night; that is right, and he may need some [facility] doses. His x-ray as well improved. It is most likely due to CHF. 3. Atrial fibrillation. He is on Eliquis and Cardizem and seems to be stable. DISPOSITION: I anticipate discharge tomorrow if stable per any other recommendations from Cardiology. cc: Maulik St MD [facility]
[2019-03-11] MEDS ORDERED: LANOXIN IV ONE (17:17)
--- NOTE | 2019-03-11 17:40 | CARDIOLOGY PROGRESS NOTE ---
DATE: 03/11/2019 SUBJECTIVE: Patient reports feeling better. He denies any chest discomfort or orthopnea. He indicates that he had been taking a diuretic, probably furosemide, prior to admission but had reduced his dose. OBJECTIVE: Vital Signs: Blood pressure 135/88, heart rate 54, oxygen saturation 96% on room air. Neck: Jugular venous distention cannot be appreciated. Lungs: Auscultation of the chest reveals somewhat diminished breath sounds diffusely with a few expiratory wheezes. Cardiac: Reveals an irregular rate and rhythm without appreciable murmur, rub, or gallop. Extremities: Without edema. DIAGNOSTIC STUDIES: Laboratory data includes a white blood cell count of 14.57, hematocrit 42.9, hemoglobin 14.1, platelet count 179,000. Sodium 138, potassium 4.1, chloride 101, carbon dioxide 29, BUN 27, creatinine 0.9, glucose 112. Echocardiography indicates a dilated left ventricle with end-diastolic diameter 6.8 cm and severely reduced left ventricular systolic function with estimated left ventricular ejection fraction 15% to 20% in the setting of severe global hypokinesis. Moderate mitral regurgitation also indicated. Right ventricle dilated with mildly reduced right ventricular systolic function as well. IMPRESSION: 1. Dyspnea and cough with chest x-ray suggesting pneumonia, as well as component of pulmonary congestion. 2. Severe cardiomyopathy evident on echocardiography. 3. Atherosclerotic coronary artery disease with history of previous coronary angioplasty/stent procedures in the past. 4. Permanent atrial fibrillation. 5. Chronic obstructive pulmonary disease. 6. Peripheral vascular disease. RECOMMENDATIONS: 1. Continue to treat for pneumonia as you are doing. 2. The patient appears to have benefitted from diuresis. Continue oral diuretic therapy with torsemide. 3. Given severely reduced left ventricular systolic functions, switch from Benicar to Entresto and from diltiazem to Coreg. cc: Joshua Ramirez MD
[2019-03-11] MEDS: MUCINEX PO SCH (20:20)
[2019-03-11] MEDS: ENTRESTO 24 MG-26 MG TABLET PO SCH (20:20)
[2019-03-11] MEDS: COREG PO SCH (21:26)
[2019-03-12] MEDS: ROCEPHIN 1 GM in NS 50 ML IV SCH (00:01)
[2019-03-12] MEDS: DUONEB (A & A) INH SCH ×2 (03:16→09:39)
[2019-03-12 07:28] VITALS: BP 97/62
[2019-03-12 07:29] LABS: BASO# 0.03 X1000 (0.0-0.2); BASO% 0.3 % (0.0-0.8); EOS# 0.12 X1000 (0.0-0.7); EOS% 1.2 % (0.0-10.0); HEMATOCRIT 44.5 % (42.0-52.0); HEMOGLOBIN 14.7 g/dL (14.0-18.0); IMM GRAN# 0.02 X1000 (0.0-0.04); IMM GRAN% 0.2 % (0.0-0.5); LYMPH% 23.6 % (20.5-51.1); MCV 90.8 FL (81-99); MONO# 0.75 X1000 (0.11-0.59); MONO% 7.7 % (1.7-9.3); MPV 9.9 FL (7.4-10.4); NEUT# 6.51 X1000 (1.4-6.5); PLT 172 X1000 (130-400); RDW 13.7 % (11.5-14.5); WBC 9.73 X1000 (4.8-10.8)
[2019-03-12 07:49] LABS: AGAP 8; BUN 26 mg/dL (8-22); CALCIUM 8.7 mg/dL (8.8-10.2); CHLORIDE 103 mmol/L (98-107); COSMO 290; CREATININE 0.7 mg/dL (0.7-1.2); ESTIMATED GFR > 60; GLUCOSE 97 mg/dL (70-104); POTASSIUM 3.9 mmol/L (3.5-5.1); SODIUM 143 mmol/L (136-145); TCO2 32 mmol/L (25-35)
[2019-03-12] MEDS ORDERED: DEMADEX PO SCH (09:00)
[2019-03-12] MEDS ORDERED: LANOXIN PO SCH (09:00)
[2019-03-12] MEDS: ELIQUIS PO SCH (09:18)
[2019-03-12] MEDS: NORCO-5 PO PRN (09:18)
[2019-03-12] MEDS: ASPIRIN EC PO SCH (09:18)
[2019-03-12] MEDS: ENTRESTO 24 MG-26 MG TABLET PO SCH (09:18)
[2019-03-12] MEDS: ZITHROMAX PO SCH (09:19)
[2019-03-12] MEDS: COREG PO SCH (09:19)
[2019-03-12] MEDS: MUCINEX PO SCH (09:19)
[2019-03-12] MEDS: MUCOMYST 20% INH SCH (09:39)
--- NOTE | 2019-03-12 19:37 | DISCHARGE SUMMARY ---
ADMISSION DATE: 03/09/2019 DISCHARGE DATE: 03/12/2019 DISCHARGE DIAGNOSES: 1. Chronic obstructive pulmonary disease exacerbation. 2. Congestive heart failure exacerbation acute systolic. 3. Pneumonia. 4. Atrial fibrillation. CONSULTATIONS: Dr. Spears, cardiology. HOSPITAL COURSE: Briefly this is a 78-year-old male with history of COPD, CHF, EF is around 30%. He was admitted for shortness of breath. He was found to have a right lower lobe pneumonia. He was placed on antibiotics. He improved quickly. His EF on echo here showed an EF of about 15 to 20, with severe global hypokinesis, so that has actually been a progression in his disease. We have treated him with diuretics, antibiotics breathing treatments, put him on Eliquis, which is not clear that he was on that as an outpatient. Dr. Ramirez was consulted. He recommended to treat pneumonia, diuretics, rate control, long-term anticoagulation. He made recommendations to change him to Coreg and Entresto. The patient was adamant to go actually on the , but wanted to make sure we had a good cardiology evaluation. His chest x-ray, however, improved. His saturations were 94-95% on room air. He is usually on 3 L. He was felt stable to be discharged on the . DISCHARGE MEDICATIONS: Flomax 0.4 daily, [place] p.r.n., Combivent inhaler p.r.n., Ceftin 250 q.12h for 7 days, Coreg 3.125 which replaces Cardizem. Azithromycin 250 for 3 days, Combivent q.6h, Demadex 20 daily, Eliquis 5 b.i.d. and Entresto 24/ 1 daily. He is to follow up with PCP in 1 to 2 weeks. [facility]. DISCHARGE CONDITION: Stable TIME SPENT AT DISCHARGE: Thirty-five minutes. cc: MD Kenney Ambrocio MD
== END 2019-03-12 12:30 | disposition home or self-care (01) | DRG 291 ==
LOC: SUPCPDRO → ED 19:46 → 3N 23:54 → SUATTDRO 23:54
PROVIDERS: ATTEND Internal Medicine

== ENCOUNTER 2019-04-07 23:52 | Inpatient (IN) ==
--- NOTE | 2019-04-08 01:02 | EKG Report ---
Test Performed on : 04/08/2019 00:46:15 AM Test Reason : cp Blood Pressure : / mmHG Vent. Rate : 108 BPM Atrial Rate : 141 BPM P-R Int : 000 ms QRS Dur : 104 ms QT Int : 340 ms P-R-T Axes : 000 053 121 degrees QTc Int : 455 ms Atrial fibrillation. with rapid ventricular response. Anterior infarct (cited on or before 05-APR-2019) Abnormal ECG When compared with ECG of 05-APR-2019 19:41, (Unconfirmed) No significant change was found Unconfirmed Result
[2019-04-08 01:21] LABS: BASO# 0.02 X1000 (0.0-0.2); BASO% 0.3 % (0.0-0.8); EOS# 0.17 X1000 (0.0-0.7); EOS% 2.1 % (0.0-10.0); HEMATOCRIT 41.9 % (42.0-52.0); HEMOGLOBIN 13.8 g/dL (14.0-18.0); LYMPH# 1.24 X1000 (1.2-3.4); LYMPH% 15.7 % (20.5-51.1); MCH 29.6 PG (27-31); MCHC 32.9 g/dL (33-37); MCV 89.7 FL (81-99); MONO# 0.85 X1000 (0.11-0.59); MONO% 10.7 % (1.7-9.3); MPV 9.7 FL (7.4-10.4); NEUT# 5.63 X1000 (1.4-6.5); NEUT% 71.2 % (42.2-75.2); PLT 187 X1000 (130-400); RBC 4.67 XMIL (4.7-6.1); RDW 13.5 % (11.5-14.5); WBC 7.91 X1000 (4.8-10.8)
[2019-04-08 01:52] LABS: AGAP 14; BUN 13 mg/dL (8-22); CALCIUM 9.2 mg/dL (8.8-10.2); CHLORIDE 100 mmol/L (98-107); CK PROFILE 138 U/L (24-204); COSMO 284; CREATININE 0.6 mg/dL (0.7-1.2); ESTIMATED GFR > 60; GLUCOSE 114 mg/dL (70-104); POTASSIUM 3.8 mmol/L (3.5-5.1); SODIUM 142 mmol/L (136-145); TCO2 28 mmol/L (25-35)
--- NOTE | 2019-04-08 02:11 | PROVIDER DOCUMENTATION ---
This chart was entered by Camryn Molina Scribe, acting as scribe for Fredy Carmona MD. HPI-Chest Pain - General Chief Complaint: Chest Pain Stated Complaint: cp Time Seen by Provider: 04/08/19 00:17 Source: patient Allergies/Adverse Reactions: Patient Allergies Allergy/AdvReac Type Severity Reaction Status Date / Time Iodinated Contrast Media Allergy Severe ANAPHYLAXIS Verified 04/08/19 05:35 [Iodinated Contrast- Oral and IV Dye] Home Medications: Home Medication List Medication Instructions Recorded Confirmed Last Taken Type Tamsulosin [Flomax] 0.4 mg PO DAILY 03/11/17 04/08/19 03/09/19 09:00 History Hydrocodone/APAP 5 mg/325 mg 1 ea PO Q8H PRN PRN 03/10/19 04/08/19 Unknown History [[place]-5] Apixaban [Eliquis] 5 mg PO BID #60 tab 03/12/19 04/08/19 Unknown Rx Carvedilol [Coreg] 3.125 mg PO Q12HR #60 tab 03/12/19 04/08/19 Unknown Rx Aspirin [Aspir-Low] 81 mg PO DAILY 04/08/19 04/08/19 Unknown History Furosemide 40 mg PO DAILY 04/08/19 04/08/19 Unknown History - History of Present Illness-CP Nature of Presenting Problem: pt is a 78 yr old male presenting with complaint of increasing sob with sharp, non radiating epigastric chest pain, resolved after 4 baby asa. pt also reports ongoing cough x 1 month, has been seen in our ED twice in past 4 days for sob. Location: reports: substernal Chest Pain Radiation: reports: no radiation Quality of Pain: reports: sharp Severity in ED: severe Onset/Duration: abrupt Timing: resolved prior to arrival Context/Activities at Onset: reports: light activity Modifying Factors: improves with: analgesics (ASA-relieved) Associated Symptoms: reports: shortness of breath. denies: dizziness, nausea, vomiting Nitro Today/Relief: no nitro taken today Aspirin Treatment Today: 81 mg x 4, provided at home Prior Chest Pain/Cardiac Workup: reports: cardiac cath (recent), heart attack, stress test (recent) Similar Symptoms Previously?: Yes Recently Seen Here or By Another Healthcare Provider: Yes Review of Systems - Adult - REVIEW OF SYSTEMS - ADULT Constitutional: denies: fever, fatique Eyes: reports: no symptoms reported Ears, Nose, Mouth & Throat: denies: ear pain, sinus problem, throat pain Cardiovascular: reports: chest pain. denies: palpitations, syncope Respiratory: reports: shortness of breath Gastrointestinal: denies: abdominal pain, diarrhea, nausea, vomiting Genitourinary: denies: dysuria, frequency, flank pain Musculoskeletal: denies: back pain, muscle weakness Integumentary: reports: no symptoms reported Neurological: denies: dizziness/vertigo, headache/migraines Psychiatric: reports: no symptoms reported Endocrine: reports: no symptoms reported Hematologic/Lymphatic: reports: no symptoms reported Allergic/Immunologic: reports: no symptoms reported All Other Systems: Reviewed and Negative Past History - Adult - PAST MEDICAL HISTORY-ADULT Review of Records: reports: Old Records Reviewed, Nursing Assessment Review, Medications Reviewed, Social history reviewed & non-contributory. Major Childhood Illnesses: reports: denies history Cardiovascular: reports: HTN Respiratory: reports: COPD Gastrointestinal: reports: denies history Obstetrical/Gynecological: reports: denies history Genitourinary: reports: denies history Musculoskeletal: reports: denies history Neurological: reports: denies history Psychiatric: reports: denies history Endocrine/Immune: reports: denies history Other Conditions: reports: denies history - PRIOR SURGERIES/PROCEDURES Surgical/Procedure History: reports: cardiac stent - IMMUNIZATION STATUS Childhood Immunizations: See Nurse Assessment Flu Vaccine: See Nurse Assessment - FAMILY HISTORY Family History: reviewed, not pertinent - SOCIAL HISTORY Smoking: cigarettes Provider spent 3-5 mins advising pt. on dangers of tobacco.: Discussed manners to quit use, and f/u contacts for add'l counseling. Living Situation: alone Physical Exam-General - PHYSICAL EXAM-ADULT Initial Vital Signs Reviewed: Yes - CONSTITUTIONAL General Appearance: alert, no apparent distress - EYES Eyes: PERRL/EOMI - HEAD, EARS, NOSE, MOUTH & THROAT HENMT: normocephalic/atraumatic, moist mucous membranes, normal ENT inspection - NECK Neck: non-tender, full range of motion, supple, normal inspection - RESPIRATORY Respiratory: chest non-tender, wheezing (scattered) - CARDIOVASCULAR Cardiovascular: normal peripheral pulses, regular rate, rhythm - GASTROINTESTINAL (ABDOMEN) Abdominal Exam: normal bowel sounds, non tender, soft - LYMPHATIC Lymphatic: no adenopathy - MUSCULOSKELETAL Back Exam: normal inspection, no CVA tenderness, no vertebral tenderness Extremity: normal range of motion, non-tender, normal inspection - SKIN Integumentary: normal color, normal turgor, warm/dry - NEUROLOGIC Neurologic: grossly normal - PSYCHIATRIC Psych/Mental Status: normal mood/affect - HEART Score HEART Score: History: Slightly Suspicious HEART Score: ECG: Normal HEART Score: Age: > or = 65 Years HEART Score: Risk Factors for Atherosclerotic Disease: > or = 3 Risk Factors or History of Atherosclerotic Disease HEART Score: Troponin: < or = Normal Limit Total HEART Score:: 4 Progress - PLAN OF CARE/RESULTS Progress/Plan/Lab Results: Orders Category Date Time Status Admit - [facility] Routine AdmDCTranf 04/08/19 07:35 Active Cardiac Monitoring DIRECTED Care 04/08/19 00:19 Completed Vital Signs Order Q 4-HR ASSESS Care 04/08/19 07:35 Completed Z-Document. for Tele Applied ORDERED Care 04/08/19 07:35 Completed CHEST-PORTABLE [RAD] Stat Exams 04/08/19 00:18 Completed BMP [BASIC METABOLIC PANEL] [CHEM] Stat Lab 04/08/19 01:04 Completed BNP [PRO B-NATRIURETIC PEPTIDE] Stat Lab 04/08/19 01:04 Completed CBC WITH ELECTRONIC DIFF [HEME] Stat Lab 04/08/19 01:04 Completed CK PROFILE [SP CHEM] Stat Lab 04/08/19 01:04 Completed TROPONIN T Stat Lab 04/08/19 01:04 Completed Furosemide [Lasix] Med 04/08/19 02:51 Discontinued 40 mg IV NOW ONE Oxygen Device Routine Oth 04/08/19 07:35 Completed Telemetry [OM.EQ] Routine Oth 04/08/19 07:35 Active EKG [EKG] Stat Ther 04/08/19 00:18 Draft Transfer/Admit Order [TRANSFER] Routine Transfer 04/08/19 05:48 Completed Result Diagrams: 04/08/19 01:04 04/08/19 01:04 - EKG 1 Time of EKG reading by physician:: 01:47 EKG Read and Signed by:: Fredy Carmona EKG Interpretation (*Must complete 3 of following elements*): Abnormal (anteroir infarct-age undetermined) Rate: 108 Rhythm: afib with RVR [place]: normal QRS: normal NE Interval: normal ST Wave: normal - CONSULTS/PCP/HOSPITALIST Notification #1 *Consult/PCP/Hospitalist*: Dr. Wood,hospitalist Time Discussed: 02:55 Consult Disposition: Admit Departure - Departure Date of Disposition Decision: 04/08/19 Time of Disposition Decision: 06:45 DIAGNOSIS: Congestive heart failure Qualifiers: Heart failure type: other Qualified Code(s): I50.9 - Heart failure, unspecified Chest pain Qualifiers: Chest pain type: unspecified Qualified Code(s): R07.9 - Chest pain, unspecified Disposition: ADMITTED INPATIENT 09 Certified Medical Emergency: Emergent Condition: Stable - Critical Care Note This patient required my direct & personal management of CC.: No Attestation - Physician/ KEYUR Attestation Patient care was provided by Advanced Practice Provider:: No The physician spent face to face time with patient:: Yes Advanced Practice Provider documentation review:: Supervising physician onsite and consulted in the evaluation and care of this patient. The physician did have a face to face encounter with the patient. This chart was documented by the indicated scribe, (Camryn Molina Scribe) and accurately reflects the services I performed and decisions made by me, Fredy Carmona MD, as attested by the provider's signature.
[2019-04-08] MEDS ORDERED: LASIX IV ONE (02:51)
--- NOTE | 2019-04-08 07:02 | Diag Imaging Result Doc PS360 ---
EXAM: CHEST-PORTABLE 04/08/2019 HISTORY: cp TECHNIQUE: AP portable at 0113 COMMENT: There is cardiomegaly and increased pulmonary vascularity. There is interstitial pulmonary edema. This is slightly improved since the previous study of 04/05/2019. IMPRESSION: Slight improvement in pulmonary edema. Electronically signed by Eric Higgins 04/08/2019 6:59 AM
[2019-04-08] MEDS ORDERED: ZOFRAN IV ONE (07:22)
[2019-04-08] MEDS ORDERED: DUONEB (A & A) INH ONE (07:23)
[2019-04-08] MEDS ORDERED: TYLENOL PO PRN (08:21)
[2019-04-08] MEDS ORDERED: NS NEB INH SCH (08:30)
[2019-04-08 09:40] LABS: INR 1.24; PROTIME 15.8 Seconds (11.0-16.0)
[2019-04-08 09:41] LABS: PTT 43.5 Seconds (22.3-41.8)
[2019-04-08] MEDS: ELIQUIS PO SCH ×2 (11:52→23:26)
[2019-04-08] MEDS: ASPIRIN EC PO SCH (11:53)
[2019-04-08] MEDS: COREG PO SCH ×2 (11:53→23:27)
[2019-04-08] MEDS: FLOMAX PO SCH (11:53)
[2019-04-08] MEDS: XOPENEX NEB INH SCH ×3 (11:59→19:21)
[2019-04-08] MEDS: ATROVENT NEB INH SCH ×3 (11:59→19:21)
[2019-04-08] MEDS ORDERED: LANOXIN IV SCH (13:15)
[2019-04-08] MEDS ORDERED: DUONEB (A & A) INH SCH (14:00)
[2019-04-08] MEDS ORDERED: ZOFRAN IV PRN (15:00)
--- NOTE | 2019-04-08 15:24 | Diag Imaging Result Doc PS360 ---
CT THORAX W/O CONTRAST - 04/08/2019 INDICATION: sob, chest discomfort COMPARISON: 10/07/2018 FINDINGS: There is a small right and trace left pleural effusion. There is cardiomegaly. There is some interstitial pulmonary edema. There is some patchy atelectasis or infiltrate in the lower lobes bilaterally left greater than right. Top normal size mediastinal lymph nodes. Upper abdominal images are unremarkable. There are moderate degenerative changes of the spine. No acute or suspicious bony lesion. IMPRESSION: Cardiomegaly, pulmonary edema, pleural effusions. Minimal nonspecific atelectasis or infiltrate in the lung bases. This exam was performed using automated exposure control, adjustment of mA or kV according to patient size, and/or use of iterative reconstruction technique Electronically signed by Rivas Scott 04/08/2019 3:22 PM
[2019-04-08] MEDS ORDERED: SOLU-MEDROL IV ONE (15:42)
[2019-04-08] MEDS: ALTACE PO SCH ×2 (18:53→21:00)
[2019-04-08] MEDS: ALDACTONE PO SCH (18:53)
[2019-04-08] MEDS: LASIX IV SCH (18:54)
--- NOTE | 2019-04-08 20:47 | CARDIOLOGY CONSULTATION ---
DATE: 04/08/2019 CONSULTATION REQUESTED BY: Hospitalist service. REASON FOR CONSULTATION: The reason is patient with increasing dyspnea, palpitations, cough. HISTORY: Mr. Will is a 78-year-old male who presented to the hospital for admission on April 08 at midnight because for several days he has been noticing increasing palpitations associated with increasing dyspnea, feeling poorly. He lives by himself. He really got worried about how he was doing. In the ER, they did a chest x-ray that shows "improvement" in pulmonary edema. He has been in the ER previously a few days back. The patient had an EKG that showed atrial fibrillation with poor R-wave progression across the precordial leads. They did blood work that included BUN, creatinine 13.6, ProBNP 4414. Troponin levels have been checked at least twice and they are negative. Hemoglobin 13.8. The patient has been admitted for management. He denies having any chest pain. PAST HISTORY: Positive for coronary heart disease. He has been seen by Dr. Phillips last time in September 2018 and he was found to be stable. The patient has had previous stress test in September 2018 that showed moderate to severe grade fixed defect in the inferior wall, diagnostic of a scar and defect in the inferoapical wall. His last heart catheterization February 2016 showed LAD mid patent stent, 30% in-stent restenosis, RCA diffuse disease, 95% proximal and mid treated with a stent. Last cardiac echo from September 2018 showed ejection fraction of 30%. The patient had been recently admitted to the hospital and was seen by our associate, Dr. Ramirez, on February of this year. At that time, his medications were changed around and the patient did not like the way he felt. His history is positive for COPD. He has had a previous myocardial infarction. He has dyslipidemia. PAST SURGICAL HISTORY: Surgical history otherwise noncontributory. FAMILY HISTORY: Noncontributory. Father and mother had heart attacks. SOCIAL HISTORY: He is living by himself. . He is a smoker. He has cut down on his smoking for the past 2 weeks. He uses oxygen at home. HOME MEDICATIONS: At this time, include the following: He is on apixaban 5 mg twice a day, aspirin 81 daily, carvedilol 3.125 every 12 hours, furosemide 40 mg daily, Flomax 0.4 mg daily, hydrocodone every 8 hours. REVIEW OF SYSTEMS: Otherwise noncontributory. PHYSICAL EXAMINATION: General: The patient is on disability. Awake, alert. Vital signs: Blood pressure is 125/93, pulse 67 to 118, temperature 97.6 degrees, respirations 22. HEENT: Unremarkable. Chest: Diminished breath sounds with rhonchi, wheezes. Heart: Sounds are irregularly irregular. Abdomen: Soft, nontender. No masses. No hepatomegaly. Extremities: Showed no edema. Pulses diminished. Neurological: Nonfocal. Moves 4 extremities. IMPRESSION: 1. Patient who presented with increasing dyspnea, evidence of systolic and diastolic heart failure. CT scan of the chest shows cardiomegaly, pulmonary edema, pleural effusions. 2. Advanced chronic obstructive pulmonary disease. 3. History of coronary heart disease, previous stents, previous myocardial infarction. 4. History of hypertension. 5. Oxygen dependent. 6. Peripheral vascular disease. RECOMMENDATION: At this time, we will change his medications around. I am going to try ramipril 5 mg twice a day, digoxin, spironolactone. We will continue low-dose beta merlin. I would suggest to give him a course of Solu-Medrol because he is evidently in a state of probably decompensated chronic obstructive pulmonary disease. Further advice will be forthcoming. cc: Paulino Bazzi MD
[2019-04-08] MEDS ORDERED: LANOXIN IV ONE ×2 (21:15)
[2019-04-08] MEDS: SOLU-MEDROL IV SCH (23:36)
--- NOTE | 2019-04-09 04:47 | HISTORY AND PHYSICAL ---
PRIMARY CARE PROVIDER: Dr. Kenney Eaton. DATE AND TIME: 04/08/2019 at 0515. CHIEF COMPLAINT: Shortness of breath and chest pain. HISTORY OF PRESENT ILLNESS: Mr. Will is a 78-year-old male who presented to the ER with complaints of shortness of breath and chest pain. He has a past medical history most notable for congestive heart failure, coronary artery disease, hypertension, COPD and peripheral vascular disease. The patient states that for approximately 1 month now he has had worsening cough. He states over the last couple of days to a week that he has been increasingly more short of breath. He said last night approximately 4 hours prior to arrival he did have onset of chest pain that was in the left chest area. It was nonradiating. He did take an aspirin at home, and stated that the chest pain almost completely went away by the time he arrived to the hospital. He does report a productive cough with clear sputum. The patient reports he does have some orthopnea and paroxysmal nocturnal dyspnea, but denies any increased swelling in extremities or abdomen. Dr. Eaton did make some changes to his medicines, but he does not know which ones he made the changes to. Upon evaluation in the ER, the patient did have crackles noted in bilateral bases. ProBNP was elevated at 4414 though CK and troponin are negative. Chest x-ray did show pulmonary edema. EKG showed atrial fibrillation with rapid ventricular response at a rate of 108. At this time, the patient will be admitted for further treatment and evaluation of his CHF and chest pain. REVIEW OF SYSTEMS: A 14 point review of systems was conducted with the patient, and all were negative except for pertinent positives except as mentioned in HPI. The patient denies any headache, dizziness, or abdominal pain. He did report some nausea though denied any vomiting or diarrhea. He denies any dysuria or urinary frequency. There is no pain, numbness, tingling or swelling in extremities. He denies any fever, body aches, or chills. PAST MEDICAL HISTORY: 1. Congestive heart failure. 2. Coronary artery disease. 3. COPD. 4. Hypertension. 5. Peripheral vascular disease. 6. Cardiomyopathy. 7. Atrial fibrillation. 8. Prostate hypertrophy. PAST SURGICAL HISTORY: 1. Circumcision. 2. Stent placement. SOCIAL HISTORY: The patient did report he has previously smoked a pack a day up until his most recent admission, though is now at this time smoking one cigarette a day. He denies any alcohol or illicit drug use. FAMILY HISTORY: Notable for diabetes mellitus and heart disease in first-degree relatives. ALLERGIES: The patient reports allergies to iodinated contrast media. HOME MEDICATIONS: 1. Eliquis 5 mg p.o. b.i.d. 2. Aspirin 81 mg p.o. daily. 3. Coreg 3.125 mg p.o. q.12 hours. 4. Lasix 40 mg p.o. daily. 5. [place] 5 mg 1 tablet p.o. q.8 hours for pain. 6. Flomax 0.4 mg p.o. daily. DIAGNOSTIC DATA/LABORATORY RESULTS: White blood cell count is 7910, hemoglobin 13.8, hematocrit 41.9, and platelet count is 187,000. PT 15.8, INR 1.24, PTT is 43.5. Sodium 142, potassium 3.8, chloride 100, serum bicarb 28, BUN 13, and creatinine 0.6 with a GFR greater than 60. Glucose 114, calcium 9.2, magnesium 2. CK was 138. Troponin was less than 0.01. ProBNP is 4414. TSH is 1.03. EKG showed atrial fibrillation with rapid ventricular response at a rate of 108 with a QTc of 455. Chest x-ray showed slight improvement in pulmonary edema from previous study which was performed on 04/05/2019. PHYSICAL EXAMINATION: VITAL SIGNS: Temperature 97.7 degrees, heart rate 100, respirations 20, blood pressure is 118/76, and oxygen saturation 97% per nasal cannula at 2L. GENERAL: The patient is alert and oriented, and able to answer questions appropriately. HEENT: Head is atraumatic, normocephalic. Pupils are equal, round, and reactive to light were 3 mm bilaterally and brisk. Oral mucosa is moist. Oropharynx clear. NECK: Supple. Trachea midline. CARDIOVASCULAR: Patient has S1-S2 present. No murmurs, gallops, or rubs appreciated though he does have an irregularly irregular rate that is slightly tachycardic in the low 100s. PULMONARY: Patient has symmetrical chest expansion bilaterally. Lung sounds in bilateral upper james were clear to auscultation. He did have crackles noted in bilateral bases. ABDOMEN: Soft. Does not appear to be distended. The patient does have a protuberant abdomen noted. Bowel sounds are present in all 4 quadrants, and were normoactive. EXTREMITIES: No cyanosis or edema noted. Pulse, motor, and sensory were intact in all extremities. Radial and pedal pulses were 2+ bilaterally. INTEGUMENTARY: Skin is pink, warm, and dry. NEUROLOGICAL: Patient is alert and oriented to person, place, time, and situation. He was able to answer questions appropriately. He was able to move all extremities. There were no focal neurological deficits noted. ASSESSMENT AND PLAN: 1. CHF exacerbation. The patient did already receive 40 mg of Lasix in the ER. We will continue this with 40 mg IV q.12 hours. We will continue his Coreg and aspirin. We will do strict intake and output and daily weights. We will continue with a series of cardiac enzymes. The patient did just recently have an echocardiogram in February, so we will not repeat this at this time given that he has had a recent study. We have placed a consult with Cardiology. We will await their evaluation and further recommendations for management. His last known ejection fraction on his echocardiogram in February of 2019 was 15 to 20 percent. 2. Hypertension. We will continue his regularly prescribed antihypertensive medication of Coreg. 3. History of atrial fibrillation. We will continue his Coreg and Eliquis. He will be on continuous cardiac telemetry. 4. COPD. We have placed orders for scheduled Xopenex and Atrovent treatments. We will monitor his respiratory status closely. 5. Deep vein thrombosis prophylaxis provided with above-mentioned Eliquis. The patient will be placed on the medical floor with telemetry. He will have vital signs q.4 hours. We will do strict intake and output, incentive spirometry, and daily weights. Further orders and recommendations pending hospital course, diagnostic studies, and physician evaluation. Dictated by JAZMIN Rosario for Lalit Wood MD cc: Lalit Wood MD [facility]
[2019-04-09] MEDS: ATROVENT NEB INH SCH ×6 (05:22→23:25)
[2019-04-09] MEDS: XOPENEX NEB INH SCH ×7 (05:22→23:25)
[2019-04-09] MEDS: SOLU-MEDROL IV SCH ×4 (06:50→23:10)
[2019-04-09] MEDS: LASIX IV SCH ×2 (06:51→19:24)
[2019-04-09 07:14] LABS: HEMATOCRIT 47.3 % (42.0-52.0); HEMOGLOBIN 15.3 g/dL (14.0-18.0); LYMPH# 0.88 X1000 (1.2-3.4); LYMPH% 15.6 % (20.5-51.1); MCH 29.5 PG (27-31); MCHC 32.3 g/dL (33-37); MCV 91.1 FL (81-99); MONO# 0.06 X1000 (0.11-0.59); MONO% 1.1 % (1.7-9.3); NEUT# 4.71 X1000 (1.4-6.5); NEUT% 83.3 % (42.2-75.2); PLT 207 X1000 (130-400); RBC 5.19 XMIL (4.7-6.1); RDW 13.5 % (11.5-14.5); WBC 5.65 X1000 (4.8-10.8)
[2019-04-09 07:45] LABS: AGAP 8; BUN 20 mg/dL (8-22); CALCIUM 9.4 mg/dL (8.8-10.2); CHLORIDE 99 mmol/L (98-107); COSMO 284; CREATININE 0.8 mg/dL (0.7-1.2); ESTIMATED GFR > 60; GLUCOSE 139 mg/dL (70-104); POTASSIUM 4.8 mmol/L (3.5-5.1); SODIUM 140 mmol/L (136-145); TCO2 33 mmol/L (25-35)
--- NOTE | 2019-04-09 08:13 | EKG Report ---
Test Performed on : 04/09/2019 07:43:19 AM Test Reason : dyspnea Blood Pressure : / mmHG Vent. Rate : 080 BPM Atrial Rate : 241 BPM P-R Int : 000 ms QRS Dur : 110 ms QT Int : 392 ms P-R-T Axes : 000 080 096 degrees QTc Int : 452 ms Atrial fibrillation. Anterior infarct (cited on or before 05-APR-2019) Abnormal ECG When compared with ECG of 08-APR-2019 00:46, (Unconfirmed) No significant change was found Confirmed by Azael INFANTE, Gigi Meadows ([id number]) on 04/09/2019 1:56:13 PM
[2019-04-09] MEDS: ALDACTONE PO SCH (09:21)
[2019-04-09] MEDS: ELIQUIS PO SCH ×2 (09:21→20:40)
[2019-04-09] MEDS: COREG PO SCH ×2 (09:21→20:40)
[2019-04-09] MEDS: ALTACE PO SCH ×2 (09:21→20:40)
[2019-04-09] MEDS: FLOMAX PO SCH (09:21)
[2019-04-09] MEDS: ASPIRIN EC PO SCH (09:21)
[2019-04-09] MEDS: LANOXIN IV SCH (09:23)
--- NOTE | 2019-04-09 14:23 | Carotid Study ---
DATE: 04/08/2019 REQUESTING PHYSICIAN: Dr. Booth. ACADEMIC SUCCESS COORDINATOR: Ivonne. INDICATIONS: Stenosis, carotid artery. EQUIPMENT: [employer] Vivid E9 ultrasound system with a 9 L-D transducer. FINDINGS: Complete diagram of ultrasound images can be seen in the patient's medical record. The peak systolic velocity noted in the right side as noted in the proximal internal carotid artery is noted to be 84. The peak systolic velocity on the left side as noted on the mid internal carotid artery is noted to be 81. The calculated internal common ratio on the right 1.89, left 1.76. Calculated stenosis on the right 0 to 39 percent, left 0 to 39 percent. There appears to be some atherosclerosis, but this by strict velocity criteria, does not produce a hemodynamically significant flow-limiting stenosis. Both vertebral arteries were antegrade flow. INTERPRETATION: By strict velocity criteria, no hemodynamically significant flow-limiting stenosis. cc: MD Garrison Laughlin MD
--- NOTE | 2019-04-09 17:51 | CARDIOLOGY PROGRESS NOTE ---
DATE: 04/09/2019 CHIEF COMPLAINT: Shortness of breath. Irregular heart beat. SUBJECTIVE: Mr. Will seem to be doing a little better today. He is still short of breath and coughing. He is not wheezing as much. OBJECTIVE: Blood pressure is 118/58, temperature is 97.8, pulse fluctuates from 85 to 90, and respirations 18 to 20. He is awake, in no distress. HEENT: Unremarkable. Chest with bilateral rhonchi and diminished breath sounds. Some end-expiratory wheezes. Heart sounds are irregularly irregular without gallop or murmur. Abdomen is obese, nontender. Extremities showed no obvious edema. Neurological exam: Follows commands, moves all four extremities. IMPRESSION: 1. Patient who presented with increasing dyspnea. He seems to have an issue with decompensated or exacerbation of chronic obstructive pulmonary disease. He also has congestive heart failure, diastolic and systolic. There is pulmonary edema. 2. History of coronary heart disease with previous stents and previous myocardial infarction. 3. History of hypertension. 4. Oxygen dependent. 5. Peripheral vascular disease. RECOMMENDATIONS: At this point in time, I would continue methylprednisolone as we are doing, apixaban, digoxin, spironolactone, and ramipril and see how he does. I would suggest to keep him in the hospital until his overall condition stabilizes. Will be happy to arrange for a followup. cc: Paulino Bazzi MD
--- NOTE | 2019-04-09 19:16 | PROGRESS NOTE ---
DATE: 04/09/2019 SUBJECTIVE: Patient reports breathing better. Denies any chest pain or any sensation of palpitation. OBJECTIVE: Vital Signs: Temperature 97.5 degrees, heart rate 85, respiratory rate 20, blood pressure 106/63, O2 saturation 94% 2 L nasal cannula. General Examination: This is a chronically ill appearing, 78-year-old male, lying in bed, in no acute distress. Cardiovascular: S1 and S2 heard. Irregularly irregular heart rhythm. No murmurs, gallops, or rubs. Respiratory: Minimal crackles noted in both pulmonary bases. Patient not using any accessory muscles or having work of breathing. Abdomen: Soft. Abdomen is protuberant, a little distended, but nontender to palpation. Bowel sounds present. No organomegaly. Extremities: No clubbing, or cyanosis, or edema. Peripheral pulses present in both legs. Neurological: Patient alert and oriented x3. Moves 4 extremities. LABORATORY DATA: Reviewed. ASSESSMENT AND PLAN: 1. Congestive heart failure exacerbation. We will continue with Lasix intravenously 40 mg every 12 hours. Cardiology has been consulted. They have made some changes to his medications. They have started him on ramipril, digoxin, spironolactone, and Solu-Medrol for possible component of chronic obstructive pulmonary disease exacerbation. The chest CT showed cardiomegaly will pulmonary edema and pleural effusions. I think at this point we will continue with same management. 2. Hypertension. We will continue with current home medications. 3. History of atrial fibrillation. We will continue with Eliquis. 4. Chronic obstructive pulmonary disease. It does not sound like he has an exacerbation. Will provide breathing treatment as needed. I do not think we need to provide any steroids at this time. 5. Disposition. We will continue to monitor this patient closely. cc: Garrison Bryant MD [facility]
[2019-04-09] MEDS: NORCO-5 PO PRN (20:40)
[2019-04-10] MEDS: ATROVENT NEB INH SCH ×6 (05:25→23:35)
[2019-04-10] MEDS: XOPENEX NEB INH SCH ×6 (05:26→23:35)
[2019-04-10] MEDS: SOLU-MEDROL IV SCH ×4 (06:33→23:08)
[2019-04-10] MEDS: LASIX IV SCH ×2 (06:34→18:23)
[2019-04-10 07:03] LABS: HEMATOCRIT 39.7 % (42.0-52.0); IMM GRAN# 0.02 X1000 (0.0-0.04); IMM GRAN% 0.2 % (0.0-0.5); LYMPH# 0.82 X1000 (1.2-3.4); MCH 29.8 PG (27-31); MCHC 32.7 g/dL (33-37); MCV 91.1 FL (81-99); MONO# 0.23 X1000 (0.11-0.59); MONO% 2.2 % (1.7-9.3); MPV 10.1 FL (7.4-10.4); NEUT% 89.6 % (42.2-75.2); PLT 192 X1000 (130-400); RBC 4.36 XMIL (4.7-6.1); RDW 13.5 % (11.5-14.5); WBC 10.27 X1000 (4.8-10.8)
[2019-04-10 07:56] LABS: AGAP 10; BUN 27 mg/dL (8-22); CALCIUM 8.9 mg/dL (8.8-10.2); CHLORIDE 96 mmol/L (98-107); COSMO 289; CREATININE 0.8 mg/dL (0.7-1.2); ESTIMATED GFR > 60; GLUCOSE 179 mg/dL (70-104); POTASSIUM 3.8 mmol/L (3.5-5.1); SODIUM 140 mmol/L (136-145); TCO2 34 mmol/L (25-35)
[2019-04-10 08:19] LABS: BANDS 2 % (0-1); LYMPHS 16 % (21-51); MONO 2 % (1-9); SEGS 80 % (42-75)
[2019-04-10] MEDS: ALTACE PO SCH ×2 (09:28→20:36)
[2019-04-10] MEDS: FLOMAX PO SCH (09:28)
[2019-04-10] MEDS: ASPIRIN EC PO SCH (09:28)
[2019-04-10] MEDS: ELIQUIS PO SCH ×2 (09:29→20:36)
[2019-04-10] MEDS: ALDACTONE PO SCH (09:29)
[2019-04-10] MEDS: LANOXIN IV SCH (09:29)
[2019-04-10] MEDS: COREG PO SCH ×2 (09:30→20:36)
--- NOTE | 2019-04-10 13:14 | PROGRESS NOTE ---
DATE: 04/10/2019 SUBJECTIVE: The patient reports breathing better. Denies any fever or chills. He feels not ready to go home yet. OBJECTIVE: Vital Signs: Temperature 97.4, heart rate 61, respiratory rate 16, blood pressure 101/72, O2 saturation 94% on 3 L nasal cannula. General Examination: This is a chronically ill- appearing 78-year-old, male lying in bed in no acute distress. Cardiovascular Exam: Irregularly irregular heart rate. No murmurs, gallops, or rubs noted. Respiratory Examination: Mild crackles noted in both pulmonary bases. Patient is not using any accessory muscles or having work of breathing. Abdomen: Soft, protuberant, a little bit distended, but nontender to palpation. Bowel sounds active. No organomegaly noted. Extremities: No clubbing, cyanosis, or edema. Peripheral pulses present in both legs. Neurological Examination: The patient is alert and oriented x3. Moves all 4 extremities. LABORATORY DATA: Reviewed. ASSESSMENT AND PLAN: 1. Systolic and diastolic congestive heart failure. Will continue with Lasix 40 mg IV q.12 hours. Cardiology who has been consulted is starting him on Ramipril, digoxin, and spironolactone, and he received 1 dose of Solu-Medrol for possible component of chronic obstructive pulmonary disease exacerbation. At this point, the patient continues to feel better. I think he needs to be in the hospital at least a couple of days and will continue to monitor this patient closely. 2. Hypertension. Will continue with home medications. 3. History of atrial fibrillation. Will continue with Eliquis. 4. Chronic obstructive pulmonary disease not in any exacerbation. Will continue to provide breathing treatment as needed. 5. Disposition. Will continue to monitor this patient closely. cc: MD SANDEE Hayes
[2019-04-10] MEDS: NORCO-5 PO PRN ×2 (16:14→20:36)
[2019-04-11] MEDS: ATROVENT NEB INH SCH ×5 (04:26→19:33)
[2019-04-11] MEDS: XOPENEX NEB INH SCH ×5 (04:27→19:33)
[2019-04-11] MEDS: SOLU-MEDROL IV SCH ×3 (05:07→22:49)
[2019-04-11] MEDS: LASIX IV SCH ×3 (05:07→18:37)
--- NOTE | 2019-04-11 10:55 | PROGRESS NOTE ---
DATE: 04/11/2019 SUBJECTIVE: The patient reports breathing better in comparing with yesterday. Denies any fever or chills. OBJECTIVE: Vital Signs: Temperature 97.4 degrees, heart rate 71, respiratory rate 19, blood pressure 110/70, O2 saturation 95% on room air. General: This is a chronically ill-appearing, 78- year-old, male, lying in bed in no acute distress. Cardiovascular: Irregularly irregular heart rhythm. No murmurs, gallops, or rubs. Respiratory: Mild crackles noted in both pulmonary bases. The patient is not using any accessory muscles or having work of breathing. Abdomen: Soft, protuberant, a little bit distended, but nontender to palpation. Bowel sounds present. No organomegaly. Extremities: No clubbing, cyanosis, or edema. Peripheral pulses present in both legs. Neurological: The patient is alert and oriented x3. Moves all 4 extremities. LABORATORY DATA: White cell count 10.27, hemoglobin 13.0, hematocrit 39.7, platelets 192,000 with normal BMP. ASSESSMENT AND PLAN: 1. Systolic and diastolic congestive heart failure. Will continue with Lasix 40 mg intravenously every 12 hours. Clinically, this patient is getting much better. From requiring 3 to 4 liters of oxygen by nasal cannula, now she is not requiring any oxygen. He has been started on ramipril, digoxin, and spironolactone. He also has been started on Solu-Medrol for chronic obstructive pulmonary disease. I think the patient is getting better. I am planning to repeat an x-ray tomorrow. If he is feeling better, I will definitely let him go tomorrow. 2. Hypertension. Blood pressure is under control. Will continue with the same medication. 3. History of atrial fibrillation. Will continue with Eliquis. 4. Chronic obstructive pulmonary disease. I do not think he is truly in really bad exacerbation. Will provide breathing treatments as needed, and intravenous steroids as per Cardiology. Will continue to monitor. 5. Disposition. I think this patient is feeling better. An x-ray shows improvement. I think he can be discharged tomorrow. cc: Garrison Bryant MD
[2019-04-11] MEDS: ALDACTONE PO SCH (11:08)
[2019-04-11] MEDS: FLOMAX PO SCH (11:08)
[2019-04-11] MEDS: ELIQUIS PO SCH (11:08)
[2019-04-11] MEDS: ALTACE PO SCH ×2 (11:08→22:49)
[2019-04-11] MEDS: COREG PO SCH ×2 (11:08→22:50)
[2019-04-11] MEDS: ASPIRIN EC PO SCH (11:08)
[2019-04-11] MEDS: LANOXIN IV SCH (11:15)
[2019-04-11] MEDS: NORCO-5 PO PRN ×2 (11:25→22:49)
--- NOTE | 2019-04-11 14:53 | CARDIOLOGY PROGRESS NOTE ---
DATE: 04/11/2019 SUBJECTIVE: Patient is breathing much better. He denies any chest pain. His shortness of breath has improved. He is also ambulating in the halls without any chest pain. His shortness of breath has gradually improved. There are no palpitations. PHYSICAL EXAMINATION: Vital Signs: Blood pressure was 110/70. Neck: Jugular sinus pressure mildly elevated. Cardiovascular: First and second heart sounds were heard. Respiratory: There are mild inspiratory crackles noted, scattered. Abdomen: Obese, protuberant. Bowel sounds were heard. Central nervous system: Alert and oriented. Was moving all 4 extremities. Extremities: Examination of extremities revealed no pedal edema. LABORATORY EXAMINATION: Revealed sodium 140, potassium 3.8, BUN 27, creatinine 0.8. ProBNP is elevated at 4,414. His cardiac enzymes are negative. Hematology: WBC 10.7, hemoglobin 13.0, hematocrit 39.7, platelet count of 192,000. CURRENT MEDICATIONS: Spironolactone 25 mg a day, ramipril 5 mg p.o. b.i.d. He is on methylprednisone 40 mg IV q.8. He is on ipratropium bromide, Lasix 40 mg twice daily, digoxin 0.125 mg daily, aspirin 81 mg a day, Eliquis 5 mg p.o. b.i.d., Coreg 3.125 mg b.i.d and Lipitor 20mg IMAGIN. His last chest CT on 04/08/2019 revealed cardiomegaly, pulmonary edema, pleural effusions. 2. He had an echocardiogram done on 10/08/2018 which revealed an ejection fraction of 30%. Pulmonary arterial hypertension. Pulmonary arterial pressure of 51 mmHg. 3. He had another echocardiogram done on 03/10/2019 which revealed dilated left ventricle with severe global hypokinesis. Ejection fraction of 15 to 20%. There was no thrombus noted. ASSESSMENT: 1. Patient has chronic atrial fibrillation. The rate is under control. He is on anticoagulation therapy. 2. He has had coronary artery disease. Last cardiac catheterization in [facility] was in a 2017 and he had diffuse RCA disease 95% proximal to mid, treated with a drug-eluting stent. LAD mid stent was patent with mild in-stent stenosis. Circumflex had proximal 30% stenosis at that time. He earlier had a stress test this year which did not reveal any evidence of ischemia. PLAN: 1. I had a detailed discussion with the patient. He was recently hospitalized in February with pneumonia. Again readmitted with heart failure and symptomatically he has improved with worsening LV function, as mentioned above. Given his known coronary artery disease, even though his cardiac enzymes are negative, to account for and to make sure there is no obstructive coronary artery disease, I have recommended that he undergo a left heart catheterization. Risks, benefits, and alternatives were explained to the patient. Patient would like to have the procedure done at [facility]. We will make necessary arrangements to transfer him to [facility] in the morning. 2. In the interim we will discontinue his Eliquis given the fact that we are planning to have an angiogram done tomorrow. 3. He is allergic to IVP dye. He is already on methylprednisone for his COPD as well and we will continue that and add Protonix mg to his medical regimen. Patient is willing to be transferred to [facility] and undergo the procedure. In addition, he has severe LV dysfunction. 4. We will have electrophysiology evaluate him for consideration of AICD placement as well. cc: Otoniel Phillips MD [facility]
[2019-04-11] MEDS: PROTONIX PO SCH (18:39)
[2019-04-11] MEDS ORDERED: LIPITOR PO SCH (21:00)
[2019-04-12] MEDS: ATROVENT NEB INH SCH ×3 (03:00→07:48)
[2019-04-12] MEDS: XOPENEX NEB INH SCH ×2 (03:01→07:49)
[2019-04-12] MEDS: SOLU-MEDROL IV SCH (06:23)
[2019-04-12] MEDS: LASIX IV SCH (06:23)
[2019-04-12] MEDS: NORCO-5 PO PRN (06:29)
[2019-04-12 07:25] LABS: AGAP 8; BUN 26 mg/dL (8-22); CALCIUM 8.3 mg/dL (8.8-10.2); CHLORIDE 98 mmol/L (98-107); COSMO 289; CREATININE 0.8 mg/dL (0.7-1.2); ESTIMATED GFR > 60; GLUCOSE 124 mg/dL (70-104); POTASSIUM 4.7 mmol/L (3.5-5.1); SODIUM 142 mmol/L (136-145); TCO2 36 mmol/L (25-35)
[2019-04-12 07:34] LABS: HEMATOCRIT 44.4 % (42.0-52.0); HEMOGLOBIN 14.1 g/dL (14.0-18.0); IMM GRAN# 0.03 X1000 (0.0-0.04); IMM GRAN% 0.3 % (0.0-0.5); LYMPH# 0.81 X1000 (1.2-3.4); LYMPH% 7.3 % (20.5-51.1); MCH 29.5 PG (27-31); MCHC 31.8 g/dL (33-37); MCV 92.9 FL (81-99); MONO% 5.4 % (1.7-9.3); MPV 10.1 FL (7.4-10.4); NEUT# 9.62 X1000 (1.4-6.5); PLT 213 X1000 (130-400); RBC 4.78 XMIL (4.7-6.1); RDW 13.8 % (11.5-14.5); WBC 11.06 X1000 (4.8-10.8)
[2019-04-12 08:24] VITALS: BP 108/82
[2019-04-12 08:43] LABS: LYMPHS 8 % (21-51); MONO 4 % (1-9); SEGS 88 % (42-75)
[2019-04-12] MEDS: ALTACE PO SCH (08:56)
[2019-04-12] MEDS: ALDACTONE PO SCH (08:57)
[2019-04-12] MEDS: COREG PO SCH (08:57)
[2019-04-12] MEDS: ASPIRIN EC PO SCH (08:57)
[2019-04-12] MEDS: FLOMAX PO SCH (08:58)
[2019-04-12] MEDS: PROTONIX PO SCH (08:58)
[2019-04-12] MEDS ORDERED: LANOXIN PO SCH (09:00)
--- NOTE | 2019-04-12 09:43 | Diag Imaging Result Doc PS360 ---
EXAM: CHEST-2 VIEWS HISTORY: pulmonary edema TECHNIQUE: Chest three views COMPARISON: 04/08/2019 FINDINGS: Improved inspiration. Decreased effusions. Decreased pulmonary edema. Cardiomegaly remains. IMPRESSION: Interval improvement. Electronically signed by Stevo Esparza 04/12/2019 9:41 AM
--- NOTE | 2019-04-12 13:19 | DISCHARGE SUMMARY ---
ADMISSION DATE: 04/08/2019 DISCHARGE DATE: 04/12/2019 DISCHARGE DIAGNOSES: 1. Congestive heart failure exacerbation. 2. Coronary artery disease. 3. Hypertension. 4. Atrial fibrillation, rate controlled. 5. Chronic obstructive pulmonary disease, not in any exacerbation. CONSULTATIONS: Dr. Phillips from Cardiology. PROCEDURES: 1. Chest x-ray done on admission showed slight improvement in pulmonary edema. 2. Carotid Doppler ultrasound showed no hemodynamically significant flow-limiting stenosis. 3. Chest CT showed cardiomegaly, pulmonary edema, pleural effusion, minimal nonspecific atelectasis or infiltrate in the lung bases. 4. Chest x-ray done at discharge today showed interval improvement. HOSPITAL COURSE: This is a 78-year-old male who presented to the emergency department complaining of some shortness of breath and chest pain. Reports also 1 month of worsening cough. The patient was admitted basically for CHF exacerbation. He was placed on Lasix, and we continued basically with the rest of home medications, in this case, it was Coreg, [place], and Flomax. We also continued with his Eliquis. The patient was doing fine. Cardiology has been consulted, Dr. Phillips, who was on-call over the weekend. He talked to the patient, and he basically told that this patient needs left heart catheterization. The patient said that he wants to have that done in [facility]. In that regard, Dr. Phillips, started the process of transferring this patient over there, placing him on medications to treat this allergy to dye that this patient has. The patient is going to be discharged and transferred to [facility] for further evaluation and treatment. DISCHARGE PHYSICAL EXAMINATION: Vital Signs: Temperature 97.3 degrees, heart rate 104, respiratory rate 20, blood pressure 108/82, O2 saturation 98% on 3 L nasal cannula. General: This is a 78-year-old, male, lying in bed in no acute distress. Cardiovascular: S1, S2 heard. No murmurs, gallops, or rubs. Regular rate and rhythm. Respiratory: Very few crackles noted in both pulmonary bases. Patient not using any accessory muscles or having work of breathing. Abdomen: Soft, nontender to palpation. Bowel sounds present. No organomegaly. Extremities: No clubbing or cyanosis. Mild 1+ pitting edema in both lower extremities. Neurological: Patient alert and oriented x3. Moves all 4 extremities. DISCHARGE DISPOSITION: The patient is going to [facility] for further evaluation and treatment. cc: Garrison Bryant MD
== END 2019-04-12 09:54 | disposition short-term general hospital (02) | DRG 293 ==
LOC: SUPCPDRO → ED 23:52 → 4N 04-08 06:28 → SUATTDRO 04-08 06:28
PROVIDERS: ATTEND Internal Medicine

== ENCOUNTER 2019-04-22 14:44 | Inpatient (IN) ==
[2019-04-22] MEDS ORDERED: ASPIRIN PO ONE (14:53)
--- NOTE | 2019-04-22 15:50 | EKG Report ---
Test Performed on : 04/22/2019 2:50:14 PM Test Reason : cp Blood Pressure : / mmHG Vent. Rate : 098 BPM Atrial Rate : 138 BPM P-R Int : 000 ms QRS Dur : 106 ms QT Int : 330 ms P-R-T Axes : 000 062 218 degrees QTc Int : 421 ms Atrial fibrillation. Incomplete left bundle branch block Nonspecific T wave abnormality Abnormal ECG When compared with ECG of 15-APR-2019 00:37, (Unconfirmed) Nonspecific T wave abnormality now evident in Inferior leads Unconfirmed Result
[2019-04-22 15:57] LABS: BASO# 0.02 X1000 (0.0-0.2); BASO% 0.1 % (0.0-0.8); EOS# 0.02 X1000 (0.0-0.7); EOS% 0.1 % (0.0-10.0); HEMATOCRIT 40.5 % (42.0-52.0); HEMOGLOBIN 13.2 g/dL (14.0-18.0); IMM GRAN# 0.07 X1000 (0.0-0.04); IMM GRAN% 0.5 % (0.0-0.5); LYMPH# 1.82 X1000 (1.2-3.4); MCH 29.5 PG (27-31); MCHC 32.6 g/dL (33-37); MCV 90.6 FL (81-99); MONO# 1.98 X1000 (0.11-0.59); MPV 10.2 FL (7.4-10.4); NEUT# 11.28 X1000 (1.4-6.5); NEUT% 74.3 % (42.2-75.2); PLT 158 X1000 (130-400); RBC 4.47 XMIL (4.7-6.1); RDW 14.3 % (11.5-14.5); WBC 15.19 X1000 (4.8-10.8)
[2019-04-22 15:59] LABS: INR 2.1; PROTIME 24.1 Seconds (11.0-16.0)
[2019-04-22 16:00] LABS: PTT 51.4 Seconds (22.3-41.8)
[2019-04-22 16:18] LABS: AGAP 11; ALB/GLOB RATIO 1.8; ALBUMIN 3.5 g/dL (3.5-5.0); ALKALINE PHOSPHATASE 96 U/L (32-122); BUN 26 mg/dL (8-22); CALCIUM 8.8 mg/dL (8.8-10.2); CHLORIDE 97 mmol/L (98-107); CK PROFILE 31 U/L (24-204); COSMO 282; CREATININE 0.9 mg/dL (0.7-1.2); ESTIMATED GFR > 60; GLUCOSE 126 mg/dL (70-104); GOT 25 U/L (10-34); GPT 33 U/L (10-44); POTASSIUM 4.2 mmol/L (3.5-5.1); SODIUM 138 mmol/L (136-145); TCO2 30 mmol/L (25-35); TOTAL BILIRUBIN 1.44 mg/dL (0.20-1.00); TOTAL PROTEIN 5.4 g/dL (6.3-8.3)
--- NOTE | 2019-04-22 16:29 | PROVIDER DOCUMENTATION ---
HPI-General Adult - General Chief Complaint: Shortness of Breath Stated Complaint: chest pain Time Seen by Provider: 04/22/19 14:54 Source: patient Allergies/Adverse Reactions: Patient Allergies Allergy/AdvReac Type Severity Reaction Status Date / Time Iodinated Contrast Media Allergy Severe ANAPHYLAXIS Verified 04/22/19 16:41 [Iodinated Contrast- Oral and IV Dye] Home Medications: Home Medication List Medication Instructions Recorded Confirmed Last Taken Type Tamsulosin [Flomax] 0.4 mg PO DAILY 03/11/17 04/22/19 04/22/19 History Hydrocodone/APAP 5 mg/325 mg 1 ea PO Q8H PRN PRN 03/10/19 04/22/19 04/22/19 History [[place]-5] Carvedilol [Coreg] 3.125 mg PO Q12HR #60 tab 03/12/19 04/22/19 04/22/19 Rx Aspirin [Aspir-Low] 81 mg PO DAILY 04/08/19 04/22/19 04/22/19 History Furosemide 40 mg PO DAILY 04/08/19 04/22/19 04/22/19 History Albuterol Sulfate [Proair Hfa] 2 puff INH Q4-6H PRN PRN 04/14/19 04/22/19 04/22/19 History Ipratropium/Albuterol Sulfate 2 puff INH 3-4XDAY PRN PRN 04/14/19 04/22/19 Unknown History [Combivent Respimat 20-100 Mcg] Apixaban [Eliquis] 5 mg PO BID 04/15/19 04/22/19 04/22/19 History - History of Present Illness -Gen Adult Nature of Presenting Problems: This is a 78yo male with PMH of CAD, CHF, Afib, who presents with CC of shortness of breath and chest pain. The patient reports that yesterday he was feeling well, but this morning he noted chest pressure and feelings of anxiety. He reports the chest pain has now resolved. He also reports that he has had increased shortness of breath, and believes he is retaining fluid. The patient reports that he is baseline at 3-3.5L at home and he has not been able to ambulate well at home due to shortness of breath. Location of Pain/Injury: reports: chest Quality of Pain: reports: pressure Onset/Duration: reports: this morning Timing: reports: gone now Associated Symptoms: reports: shortness of breath Review of Systems - Adult - REVIEW OF SYSTEMS - ADULT Constitutional: denies: fever Eyes: reports: no symptoms reported, other (no new vision changes) Ears, Nose, Mouth & Throat: reports: no symptoms reported. denies: throat pain Cardiovascular: reports: chest pain. denies: palpitations Respiratory: reports: shortness of breath Gastrointestinal: reports: no symptoms reported. denies: abdominal pain Genitourinary: reports: no symptoms reported. denies: dysuria Musculoskeletal: reports: back pain (chronic) Integumentary: reports: no symptoms reported Neurological: reports: no symptoms reported. denies: headache/migraines Psychiatric: reports: no symptoms reported Endocrine: reports: no symptoms reported Hematologic/Lymphatic: reports: no symptoms reported Allergic/Immunologic: reports: no symptoms reported Past History - Adult - PAST MEDICAL HISTORY-ADULT Review of Records: reports: Old Records Reviewed Major Childhood Illnesses: reports: denies history Cardiovascular: reports: HTN Respiratory: reports: COPD Gastrointestinal: reports: denies history Genitourinary: reports: denies history Musculoskeletal: reports: denies history, chronic pain Neurological: reports: denies history Psychiatric: reports: anxiety, depression Endocrine/Immune: reports: denies history Other Conditions: reports: denies history - PRIOR SURGERIES/PROCEDURES Surgical/Procedure History: reports: cardiac stent - IMMUNIZATION STATUS Childhood Immunizations: See Nurse Assessment Flu Vaccine: See Nurse Assessment - FAMILY HISTORY Family History: reviewed, not pertinent Physical Exam-General - CONSTITUTIONAL General Appearance: appears well, alert, no apparent distress - EYES Eyes: negative: scleral icterus - HEAD, EARS, NOSE, MOUTH & THROAT HENMT: normocephalic/atraumatic, moist mucous membranes - NECK Neck: normal inspection - RESPIRATORY Respiratory: crackles (bilateral crackles) - CARDIOVASCULAR Cardiovascular: no edema, JVD, tachycardia, irregularly irregular - GASTROINTESTINAL (ABDOMEN) Abdominal Exam: non tender (minimal RUQ discomfort with palpation, overal non- tender abdomen), distended. negative: guarding - SKIN Integumentary: warm/dry - NEUROLOGIC Neurologic: grossly normal - PSYCHIATRIC Psych/Mental Status: normal mood/affect, normal thought content, normal thought process Progress - PLAN OF CARE/RESULTS Progress/Plan/Lab Results: Vital Signs - 8 hr 04/22/19 14:59 Temperature 98.2 F Pulse Rate 96 H Respiratory Rate 19 Blood Pressure 100/60 O2 Sat by Pulse Oximetry 98 Laboratory Results - last 24 hr 04/22/19 04/22/19 04/22/19 15:35 15:35 15:35 WBC 15.19 H RBC 4.47 L Hgb 13.2 L Hct 40.5 L MCV 90.6 MCH 29.5 MCHC 32.6 L RDW Std Deviation 14.3 Plt Count 158 MPV 10.2 Immature Gran % (Auto) 0.5 Neut % (Auto) 74.3 Lymph % (Auto) 12.0 L [place] % (Auto) 13.0 H Eos % (Auto) 0.1 Baso % (Auto) 0.1 Immature Gran # (Auto) 0.07 H Neut # (Auto) 11.28 H Lymph # (Auto) 1.82 [place] # (Auto) 1.98 H Eos # (Auto) 0.02 Baso # (Auto) 0.02 PT 24.1 H INR 2.10 PTT (Actin FS) 51.4 H Sodium 138 Potassium 4.2 Chloride 97 L Carbon Dioxide 30 Anion Gap 11 BUN 26 H Creatinine 0.9 Estimated GFR/1.73 m2 > 60 BUN/Creatinine Ratio 29 Glucose 126 H Calculated Osmolality 282 Calcium 8.8 Total Bilirubin 1.44 H AST 25 ALT 33 Alkaline Phosphatase 96 Creatine Kinase 31 Troponin T Total Protein 5.4 L Albumin 3.5 Globulin 1.9 Albumin/Globulin Ratio 1.8 04/22/19 15:35 WBC RBC Hgb Hct MCV MCH MCHC RDW Std Deviation Plt Count MPV Immature Gran % (Auto) Neut % (Auto) Lymph % (Auto) [place] % (Auto) Eos % (Auto) Baso % (Auto) Immature Gran # (Auto) Neut # (Auto) Lymph # (Auto) [place] # (Auto) Eos # (Auto) Baso # (Auto) PT INR PTT (Actin FS) Sodium Potassium Chloride Carbon Dioxide Anion Gap BUN Creatinine Estimated GFR/1.73 m2 BUN/Creatinine Ratio Glucose Calculated Osmolality Calcium Total Bilirubin AST ALT Alkaline Phosphatase Creatine Kinase Troponin T < 0.010 Total Protein Albumin Globulin Albumin/Globulin Ratio Orders Category Date Time Status Nursing- Obtain EKG ONCE Care 04/22/19 14:53 Active CHEST-2 VIEWS [RAD] Stat Exams 04/22/19 14:53 Ordered BNP [PRO B-NATRIURETIC PEPTIDE] Stat Lab 04/22/19 15:35 Received CBC WITH DIFF [HEME] Stat Lab 04/22/19 15:35 Completed CK PROFILE [SP CHEM] Stat Lab 04/22/19 15:35 Completed COMPREHENSIVE METABOLIC PANEL [CHEM] Stat Lab 04/22/19 15:35 Completed PROTIME WITH INR [COAG] Stat Lab 04/22/19 15:35 Completed PTT [COAG] Stat Lab 04/22/19 15:35 Completed TROPONIN T Stat Lab 04/22/19 15:35 Completed Aspirin Med 04/22/19 14:53 Discontinued 325 mg PO NOW ONE EKG [EKG] Stat Ther 04/22/19 14:53 Draft Result Diagrams: 04/22/19 15:35 04/22/19 15:35 - EKG 1 EKG Interpretation (*Must complete 3 of following elements*): Abnormal [place]: normal QRS: other (IVCD/incomplete left bundle branch block) ST Wave: non-specific ST changes Prior EKG Comparison: unchanged from prior Comments: slight ST depression in II in previous (04/15/19), not present on current Departure - Departure Date of Disposition Decision: 04/22/19 Time of Disposition Decision: 17:32 DIAGNOSIS: Acute exacerbation of congestive heart failure Qualifiers: Heart failure type: unspecified Qualified Code(s): I50.9 - Heart failure, unspecified Chest pain Qualifiers: Chest pain type: unspecified Qualified Code(s): R07.9 - Chest pain, unspecified Disposition: ADMITTED INPATIENT 09 Certified Medical Emergency: Emergent Condition: Fair Referrals and Follow-Ups: Kenney Eaton MD [Primary Care Provider] - - Critical Care Note This patient required my direct & personal management of CC.: No Attestation - Physician/ KEYUR Attestation Patient care was provided by Advanced Practice Provider:: No The physician spent face to face time with patient:: Yes Advanced Practice Provider documentation review:: Supervising physician onsite and consulted in the evaluation and care of this patient. The physician did have a face to face encounter with the patient. - HEART Score HEART Score: History: Moderately Suspicious HEART Score: ECG: Non-Specific Repolarization Disturbance/LBBB/PM HEART Score: Age: > or = 65 Years HEART Score: Risk Factors for Atherosclerotic Disease: > or = 3 Risk Factors or History of Atherosclerotic Disease HEART Score: Troponin: < or = Normal Limit Total HEART Score:: 6
[2019-04-22] MEDS ORDERED: LASIX IV ONE (16:53)
--- NOTE | 2019-04-22 17:07 | Diag Imaging Result Doc PS360 ---
EXAM: CHEST-2 VIEWS INDICATION: cp TECHNIQUE: 2 views COMPARISON: 04/14/2019 FINDINGS: Pulmonary venous congestion and interstitial edema have improved since the previous study. However, there is still mild pulmonary venous congestion. There is a small left pleural effusion that is approximately stable. There is adjacent mild atelectasis and/or infiltrate. There is stable cardiomegaly. IMPRESSION: 1.Improvement of pulmonary venous congestion and edema since the previous study. 2.Approximately stable small left effusion. Electronically signed by Tariq Lan 04/22/2019 5:04 PM
--- NOTE | 2019-04-22 18:32 | HISTORY AND PHYSICAL ---
Mr. Will is a 78-year-old. PAST MEDICAL HISTORY: 1. Congestive heart failure. Last echocardiogram showed ejection fraction 20% to 25%. He also had a heart catheterization recently and he has normal coronaries. He had stents, but they were open and had no sign of coronary insufficiency. 2. Coronary artery disease, status post stents. 3. COPD. 4. Hypertension. 5. Peripheral vascular disease. 6. Cardiomyopathy. Appears to be ischemic cardiomyopathy. 7. Atrial fibrillation. 8. Benign prostatic hypertrophy. PAST SURGICAL HISTORY: 1. Circumcision. 2. Coronary stent placement. HISTORY OF PRESENT ILLNESS: He presents saying he has become more short of breath in the last several days, but he has had trouble with congestive heart failure he said since his last admission. He was here back on 04/08/2019. SOCIAL HISTORY: He previously smoked a pack a day. He is now smoking just 1-2 a day. No alcohol or illicit drugs. FAMILY HISTORY: Notable for diabetes mellitus and heart disease in a first-degree relative. ALLERGIES: He is allergic to iodinated contrast media. REVIEW OF SYSTEMS: He is not aware of any weight gain. He does notice he has had swelling, increased dyspnea at rest, increased orthopnea, increased paroxysmal nocturnal dyspnea. No chest pain. No pleuritic pain. No cough. No fever or chills. GI and : No gross hematuria or dysuria. Musculoskeletal and neurologic: No focal complaints. Endocrinologic/hematologic: No significant history. PHYSICAL EXAMINATION: VITAL SIGNS: Temperature 98.2 degrees, pulse 96, respirations 19, blood pressure 100/60. HEENT: Pupils are equal round. LUNGS: Clear in all lung james. CARDIOVASCULAR: Regular rhythm and rate without murmur or S3. ABDOMEN: Soft. BACK: I can appreciate rales in the back on auscultation. GENERAL: His weight is 200 pounds. Height 5 feet 11 inches. EXTREMITIES: He really does not have any pedal edema. Carotid, radial and femoral pulses appear to be 2+ and symmetrical. NECK: I did not appreciate distended neck veins. CVP appears to be less than 6 cm from the right atrium. Neck was supple. SKIN: Without rashes. LABORATORY DATA: White count 15,190, hematocrit is 40, hemoglobin is 13, platelet count 158,000. Sodium 138, potassium 4.2, chloride 97, BUN 26, creatinine 0.9, blood sugar 126, calcium 8.8, AST 25, ALT is 33, alkaline phosphatase is 96. Troponin less than 0.01. ProBNP was 5612. Albumin was 3.5. Pro time is 24, INR is 2.1, PTT is 51. DIAGNOSTIC DATA: Chest x-ray: Improvement of pulmonary venous congestion and edema since his previous study which was on 04/14/2019, and apparently a stable small left pleural effusion. ASSESSMENT AND PLAN: 1. Congestive heart failure with reduced ejection fraction, history of coronary disease with stents. Apparently recent catheterization did not show any coronary insufficiency, but I suspect this is ischemic cardiomyopathy. His current medication: He is on furosemide 40 mg a day. He is taking Coreg 3.125 mg q.12 hours. Note he has underlying atrial fibrillation. He is on Eliquis 5 mg b.i.d. and aspirin 81 mg daily, so we will continue all of that. We are going to diurese him with Lasix 40 mg intravenous q.12 and we are going to consider whether he would be a candidate for Entresto. We will get Cardiology to help follow along. At present his renal function looks good. We will check his T4, TSH, B12, folate. 2. Atrial fibrillation, rate appears to be controlled. He is on Eliquis 5 mg twice a day, Coreg 3.125 mg q.12. 3. Benign prostatic hypertrophy, on Flomax. 4. History of peripheral vascular disease. 5. History of chronic obstructive pulmonary disease, aware. cc: Fortino Trinh MD
[2019-04-22] MEDS ORDERED: ZOFRAN IV PRN (20:27)
[2019-04-22] MEDS ORDERED: TYLENOL PO PRN (20:27)
[2019-04-22] MEDS ORDERED: NORCO-5 PO PRN (20:27)
[2019-04-22] MEDS: ELIQUIS PO SCH (21:40)
[2019-04-22] MEDS: LASIX IV SCH (21:40)
[2019-04-22] MEDS: COREG PO SCH (21:40)
[2019-04-23] MEDS: DUONEB (A & A) INH PRN ×2 (07:20→15:42)
[2019-04-23 07:26] LABS: BASO# 0.01 X1000 (0.0-0.2); BASO% 0.1 % (0.0-0.8); EOS# 0.07 X1000 (0.0-0.7); EOS% 0.5 % (0.0-10.0); HEMATOCRIT 41.2 % (42.0-52.0); HEMOGLOBIN 13.4 g/dL (14.0-18.0); IMM GRAN# 0.03 X1000 (0.0-0.04); IMM GRAN% 0.2 % (0.0-0.5); LYMPH# 1.53 X1000 (1.2-3.4); LYMPH% 10.8 % (20.5-51.1); MCH 29.5 PG (27-31); MCHC 32.5 g/dL (33-37); MCV 90.5 FL (81-99); MONO# 1.41 X1000 (0.11-0.59); MPV 10.5 FL (7.4-10.4); NEUT# 11.06 X1000 (1.4-6.5); NEUT% 78.4 % (42.2-75.2); PLT 157 X1000 (130-400); RBC 4.55 XMIL (4.7-6.1); RDW 14.4 % (11.5-14.5); WBC 14.11 X1000 (4.8-10.8)
[2019-04-23 07:42] LABS: AGAP 13; ALBUMIN 3.1 g/dL (3.5-5.0); ALKALINE PHOSPHATASE 98 U/L (32-122); BUN 23 mg/dL (8-22); CALCIUM 8.7 mg/dL (8.8-10.2); CHLORIDE 96 mmol/L (98-107); COSMO 280; CREATININE 0.7 mg/dL (0.7-1.2); ESTIMATED GFR > 60; GLUCOSE 111 mg/dL (70-104); GOT 137 U/L (10-34); GPT 149 U/L (10-44); POTASSIUM 3.5 mmol/L (3.5-5.1); SODIUM 138 mmol/L (136-145); TCO2 29 mmol/L (25-35); TOTAL BILIRUBIN 1.66 mg/dL (0.20-1.00); TOTAL PROTEIN 6.2 g/dL (6.3-8.3)
[2019-04-23] MEDS: LASIX IV SCH ×3 (08:17→20:22)
[2019-04-23] MEDS: ASPIRIN EC PO SCH (08:17)
[2019-04-23] MEDS: ELIQUIS PO SCH ×2 (08:17→20:23)
[2019-04-23] MEDS: COREG PO SCH ×2 (08:17→20:25)
[2019-04-23] MEDS: FLOMAX PO SCH (09:53)
--- NOTE | 2019-04-23 10:14 | PROGRESS NOTE ---
DATE: 04/23/2019 Calvin Will was admitted last night complaining of shortness of breath. He has a history of coronary artery disease with stents. Recent heart catheterization did not show any coronary insufficiency, suspect some ischemic cardiomyopathy. He was diuresed with furosemide with not much effect yet, so we will go up from 40 to 80 mg IV twice a day. Continues Coreg 3.125 mg q. 12 hours. IMPRESSION: 1. He has underlying atrial fibrillation. 2. Atrial fibrillation, rate is controlled. 3. Benign prostatic hypertrophy on Flomax. 4. History of peripheral vascular disease. PLAN: Review of his orders. Will go up on his Lasix to 80 mg twice a day. cc: Fortino Trinh MD
[2019-04-23] MEDS: VENTOLIN HFA INH PRN ×3 (11:17→19:43)
--- NOTE | 2019-04-23 23:55 | EKG Report ---
Test Performed on : 04/23/2019 10:57:18 PM Test Reason : tachycardia, pos. rhythm change Blood Pressure : / mmHG Vent. Rate : 086 BPM Atrial Rate : 065 BPM P-R Int : 000 ms QRS Dur : 112 ms QT Int : 374 ms P-R-T Axes : 000 090 265 degrees QTc Int : 447 ms Atrial fibrillation. with premature ventricular or aberrantly conducted complexes. Rightward axis Incomplete left bundle branch block T wave abnormality, consider inferior ischemia Abnormal ECG When compared with ECG of 22-APR-2019 14:50, (Unconfirmed) No significant change was found Confirmed by Azael INFANTE, Gigi Meadows ([id number]) on 04/27/2019 1:03:51 PM
[2019-04-24 07:36] LABS: AGAP 13; BUN 19 mg/dL (8-22); CALCIUM 8.1 mg/dL (8.8-10.2); CHLORIDE 95 mmol/L (98-107); COSMO 279; CREATININE 0.6 mg/dL (0.7-1.2); ESTIMATED GFR > 60; GLUCOSE 113 mg/dL (70-104); MAGNESIUM 1.9 mg/dL (1.5-2.7); SODIUM 138 mmol/L (136-145); TCO2 30 mmol/L (25-35)
[2019-04-24] MEDS: DUONEB (A & A) INH PRN ×2 (07:40→15:09)
[2019-04-24] MEDS: ASPIRIN EC PO SCH (08:20)
[2019-04-24] MEDS: LASIX IV SCH ×2 (08:20→20:45)
[2019-04-24] MEDS: COREG PO SCH ×2 (08:20→20:38)
[2019-04-24] MEDS: FLOMAX PO SCH (08:20)
[2019-04-24] MEDS: ELIQUIS PO SCH ×2 (08:20→20:38)
--- NOTE | 2019-04-24 08:23 | Diag Imaging Result Doc PS360 ---
EXAM: CHEST-PORTABLE 04/24/2019 HISTORY: chf TECHNIQUE: AP portable at 0802 COMMENT: Compared to 04/22/2019 the left lower lobe has become clearer. The heart size also less enlarged. There is slightly less interstitial opacity in the lung bases. IMPRESSION: Improved congestive heart failure. Improved atelectasis left lower lobe. Electronically signed by Eric Higgins 04/24/2019 8:21 AM
--- NOTE | 2019-04-24 09:39 | PROGRESS NOTE ---
DATE: 04/24/2019 SUBJECTIVE: He says he is breathing maybe a little better. His chest x-ray does look better. OBJECTIVE: Vital signs: Temperature is 98.1 degrees, pulse 86, respirations 18, blood pressure 100/77. HEENT: Pupils are equal round. Lungs: Clear in all lung james. Cardiovascular: Regular rhythm and rate without murmur or S3. Abdomen: Soft. Skin: Warm and dry. URINE OUTPUT: Was 3700 mL which he has a little over 9 L I think output. IMAGING: Chest x-ray from this morning, improved congestion, improved congestive heart failure, improved atelectasis left lower lobe. ASSESSMENT AND PLAN: 1. Underlying atrial fibrillation with ischemic cardiomyopathy. His rate is controlled. He is diuresing. His pulmonary venous hypertension seems to have improved. 2. Benign prostatic hypertrophy and seems to be voiding fine. Continue the Flomax. LABORATORY DATA: His electrolytes: Sodium 138, potassium 3.0, chloride 95, BUN 19, creatinine 0.6. Note that liver enzymes did bump up, AST from 25 to 137, ALT from 33 to 149, and total bilirubin 1.4 to 1.6. I am not sure if that is hepatic congestion. His proBNP was 5612. Cardiology will follow. REVIEW OF ORDERS: Right now, he is on Lasix 80 mg IV q.12. He is on Flomax 0.4 mg daily, Coreg 3.125 mg q.12, Eliquis 5 mg b.i.d. and aspirin 81 mg a day. cc: MD SANDEE Smith
--- NOTE | 2019-04-24 15:56 | CARDIOLOGY CONSULTATION ---
DATE: 04/24/2019 REASON FOR CONSULTATION: Cardiology was consulted for congestive heart failure. Mr. Calvin Will is a 78-year-old gentleman with history of coronary artery disease, chronic atrial fibrillation, congestive heart failure, was recently admitted at [facility], [place] and subsequently transferred to [facility] given his worsening LV dysfunction and congestive heart failure for consideration of AICD placement and left heart catheterization. He has had known coronary artery disease. His cardiac catheterization revealed no significant worsening of his coronary artery disease and he was evaluated by Electrophysiology and was decided to have an AICD placed as an outpatient. Patient was discharged home. He was to have a followup appointment to see me later this week however he came into the hospital with increasing shortness of breath and increasing abdominal distention. He tends to have congestive heart failure with accumulation in his abdomen rather than pedal edema. He denies any chest pain. There is no palpitations following intravenous Lasix 80 mg twice daily. Patient has improved significantly. REVIEW OF SYSTEM: A 14-point review of systems was done.GI: There is no history of nausea, vomiting, diarrhea. There is no history of hematemesis or melena. Central nervous system: No focal weakness to suggest CVA, TIA. : There is no dysuria or hematuria. PAST MEDICAL HISTORY: 1. Ischemic cardiomyopathy dilated with an estimated ejection fraction of 15 to 20 percent. 2. Congestive heart failure systolic. 3. Last cardiac catheterization was earlier this year and stents were patent. Prior to that he had a cardiac catheterization in 2017 which revealed diffuse RCA disease with 95% proximal to mid which was treated with a drug-eluting stent at that time. There was a stent in the mid left anterior descending artery which was patent with mild in-stent stenosis, circumflex had proximal 30% stenosis at that time. Cardiac catheterization done earlier this month had no significant restenoses. Medical management was recommended. The patient was evaluated for AICD placement and it was planned to implant as an outpatient. 4. Chronic atrial fibrillation on anticoagulation therapy. 5. Pulmonary arterial hypertension. 6. COPD. ALLERGIES: He is allergic to IVP dye. He has been intolerant to Entresto. HOME MEDICATIONS: Included spironolactone 25, ramipril 5 mg p.o. b.i.d., Lasix 40 mg daily, enteric-coated aspirin, Eliquis 5 mg b.i.d., Coreg 3.125 mg, Lipitor 20. PHYSICAL EXAMINATION: Blood pressure 100/77. Cardiovascular: Normal jugular venous pressure. First and second heart sounds were heard. There was S3 gallop. Respiratory: Few scattered wheeze. Abdomen: Soft, nontender. There was no guarding or rigidity. Bowel sounds were heard. Central nervous system: Alert, was moving all 4 extremities. Examination of extremities revealed no edema. Examination of his abdomen revealed mild ascites. LABORATORY EXAMINATION: Revealed sodium 138, potassium 3.0, BUN 19, creatinine 0.6. Abnormal liver function tests. Troponin was negative. ProBNP elevated at 5612. Chest x-ray revealed improved congestive heart failure. ASSESSMENT AND PLAN: Mr. Calvin Will is a 78-year-old gentleman with history of coronary artery disease, stent placement to left anterior descending artery and right coronary artery in the past had a recent cardiac catheterization which revealed patent stents. He has severe left ventricular dysfunction, ejection fraction of 15 to 20 percent, history of systolic heart failure. He comes with complaints of increasing shortness of breath and he has been started on intravenous Lasix 80 mg twice daily and is symptomatically improved. His main heart failure is in the abdomen where he has significant ascites as well. RECOMMENDATIONS: 1. Once he is more euvolemic we will discharge him on Lasix 40 mg twice daily. I will restart the following medications Aldactone, ramipril and add Lanoxin 0.125 mg daily. His potassium was low. We will supplement his potassium and check a BMP. 2. He is on beta-blockers Coreg. I have not made any changes at the present time. Once he is more euvolemic we will discharge him home and I will make followup appointments to see him as an outpatient. 3. We will set him up as an OP for AICD cc: Otoniel Phillips MD [facility]
[2019-04-24] MEDS: KLOR-CON PO SCH (17:36)
[2019-04-24] MEDS: ALDACTONE PO SCH (17:36)
[2019-04-24] MEDS: NORCO-10 PO PRN (17:36)
[2019-04-24] MEDS: ALTACE PO SCH (23:56)
[2019-04-25] MEDS: NORCO-10 PO PRN ×2 (00:06→08:31)
[2019-04-25 07:21] LABS: AGAP 11; BUN 22 mg/dL (8-22); CALCIUM 9.4 mg/dL (8.8-10.2); CHLORIDE 93 mmol/L (98-107); COSMO 281; CREATININE 0.9 mg/dL (0.7-1.2); ESTIMATED GFR > 60; GLUCOSE 127 mg/dL (70-104); POTASSIUM 3.7 mmol/L (3.5-5.1); SODIUM 138 mmol/L (136-145); TCO2 34 mmol/L (25-35)
[2019-04-25] MEDS: DUONEB (A & A) INH PRN (07:42)
[2019-04-25 07:55] VITALS: BP 108/72
[2019-04-25] MEDS: LASIX IV SCH (08:30)
[2019-04-25] MEDS: ALTACE PO SCH (08:30)
[2019-04-25] MEDS: COREG PO SCH (08:31)
[2019-04-25] MEDS: FLOMAX PO SCH (08:31)
[2019-04-25] MEDS: ELIQUIS PO SCH (08:31)
[2019-04-25] MEDS: ASPIRIN EC PO SCH (08:31)
[2019-04-25] MEDS: KLOR-CON PO SCH (08:31)
[2019-04-25] MEDS: ALDACTONE PO SCH (08:31)
[2019-04-25] MEDS ORDERED: LANOXIN PO SCH (09:00)
--- NOTE | 2019-04-25 09:39 | DISCHARGE SUMMARY ---
ADMISSION DATE: 04/22/2019 DISCHARGE DATE: 04/25/2019 HISTORY OF PRESENT ILLNESS: This is a 78-year-old who came in complaining of shortness of breath and dyspnea on exertion, also increased orthopnea. He is concerned about his heart rate getting a little faster. Denied really any chest pain or left shoulder/arm pain. No pleuritic pain. No fever or chills. PAST MEDICAL HISTORY: 1. Congestive heart failure. Last echocardiogram showed ejection fraction 20% to 25%. He also had heart catheterization, which showed his coronaries were okay. He had some stents, but they were open by his report. 2. Coronary artery disease, status post stents. 3. COPD. 4. Hypertension. 5. Peripheral vascular disease. 6. Cardiomyopathy, appears to have ischemic cardiomyopathy. 7. Atrial fibrillation. 8. Benign prostatic hypertrophy. PAST SURGICAL HISTORY: 1. Circumcision. 2. Coronary stent placement. He reports he has had 3 stents placed. ADMISSION DIAGNOSES: 1. Congestive heart failure, reduced ejection fraction. History of coronary artery disease in the past. We did not see any sign of active ischemia. Cardiac enzymes unremarkable. He does have what appears to be ischemic cardiomyopathy. He is on furosemide 40 mg a day, Coreg 3.125 mg twice a day, and had underlying atrial fibrillation, so we are going to plan on diuresing him some, watching his afterload, making some adjustments. 2. Atrial fibrillation appears well controlled. He is on Eliquis 5 mg twice a day and Coreg 3.125 mg every 12 hours. 3. Benign prostatic hypertrophy, on Flomax. 4. Peripheral vascular disease. 5. History of chronic obstructive pulmonary disease. HOSPITAL COURSE: He was seen by Cardiology. Chest x-ray on presentation. There was improvement in pulmonary venous congestion and edema since his previous study on 04/14/2019. He had an approximately stable small left pleural effusion. Repeat chest x-ray on 04/24/2019 showed improved congestion, improved atelectasis on the left lower lobe. Really did not see any evidence of pneumonia. Dr. Phillips had seen him in the clinic, I believe, and so discharge him on Lasix 40 mg twice a day, and Aldactone, ramipril, and add Lanoxin 0.125 mg a day, and so supplement the potassium. As far as his atrial fibrillation, he is on Coreg, and he is already on Eliquis. He is supposed to see Dr. Phillips as an outpatient to set up for an AICD. DISCHARGE MEDICATIONS: Eliquis 5 mg b.i.d., aspirin 81 mg a day, Coreg 3.125 mg every 12 hours, Lanoxin 125 mcg daily, Lasix 40 mg p.o. twice a day, Klor-Con 20 mEq daily, Altace 5 mg b.i.d., Aldactone 25 mg a day, and Flomax 0.4 mg a day. Note, his repeat potassium was 3.7. He is on Aldactone. I do believe we will hold the potassium, and have him followed up as an outpatient. cc: Fortino Trinh MD
== END 2019-04-25 14:17 | disposition home health service (06) | DRG 292 ==
LOC: SUPCPDRO → ED 14:44 → EDIPHOLD 19:50 → 3N 20:37
PROVIDERS: ATTEND Emergency Medicine

== ENCOUNTER 2019-08-26 05:09 | Inpatient (IN) ==
--- NOTE | 2019-08-24 08:57 | EKG Report ---
Test Performed on : 08/24/2019 08:48:13 AM Test Reason : pat Blood Pressure : / mmHG Vent. Rate : 072 BPM Atrial Rate : 072 BPM P-R Int : 000 ms QRS Dur : 104 ms QT Int : 366 ms P-R-T Axes : 000 070 152 degrees QTc Int : [address] & T wave abnormality, consider inferior ischemia Abnormal ECG When compared with ECG of 23-APR-2019 22:57, ST now depressed in Inferior leads Nonspecific T wave abnormality has replaced inverted T waves in Inferior leads Confirmed by Checo INFANTE, Elier Sanches ([id number]) on 08/26/2019 7:28:50 AM
[2019-08-24 09:17] LABS: BASO# 0.09 X1000 (0.0-0.2); BASO% 0.9 % (0.0-0.8); EOS# 0.14 X1000 (0.0-0.7); EOS% 1.5 % (0.0-10.0); HEMATOCRIT 48.5 % (42.0-52.0); HEMOGLOBIN 15.6 g/dL (14.0-18.0); IMM GRAN# 0.02 X1000 (0.0-0.04); IMM GRAN% 0.2 % (0.0-0.5); LYMPH# 2.08 X1000 (1.2-3.4); LYMPH% 21.8 % (20.5-51.1); MCH 28.7 PG (27-31); MCHC 32.2 g/dL (33-37); MCV 89.2 FL (81-99); MONO% 9.5 % (1.7-9.3); MPV 9.2 FL (7.4-10.4); NEUT# 6.29 X1000 (1.4-6.5); NEUT% 66.1 % (42.2-75.2); PLT 227 X1000 (130-400); RBC 5.44 XMIL (4.7-6.1); RDW 13.9 % (11.5-14.5); WBC 9.52 X1000 (4.8-10.8)
--- NOTE | 2019-08-24 09:19 | Diag Imaging Result Doc PS360 ---
CHEST-2 VIEWS - 08/24/2019 INDICATION: PAT COMPARISON: 04/24/2019 FINDINGS: There is a new dual lead left-sided pacemaker in good position. Heart size and pulmonary vascularity is normal. The lungs are clear. No pneumothorax or pleural effusion. IMPRESSION: No acute disease. Electronically signed by Rivas Scott 08/24/2019 9:16 AM
[2019-08-24 10:14] LABS: AGAP 12; ALB/GLOB RATIO 1.3; ALBUMIN 4.1 g/dL (3.5-5.0); ALKALINE PHOSPHATASE 71 U/L (32-122); BUN 17 mg/dL (8-22); CALCIUM 9.4 mg/dL (8.8-10.2); CHLORIDE 99 mmol/L (98-107); COSMO 280; CREATININE 0.9 mg/dL (0.7-1.2); ESTIMATED GFR > 60; GLUCOSE 87 mg/dL (70-104); GOT 17 U/L (10-34); GPT 11 U/L (10-44); POTASSIUM 4.5 mmol/L (3.5-5.1); SODIUM 140 mmol/L (136-145); TCO2 29 mmol/L (25-35); TOTAL BILIRUBIN 0.41 mg/dL (0.20-1.00); TOTAL PROTEIN 7.2 g/dL (6.3-8.3)
[2019-08-26] MEDS ORDERED: ENTEREG ONE (05:41)
[2019-08-26] MEDS ORDERED: LR 500 ML ONE (05:42)
[2019-08-26] MEDS ORDERED: FLAGYL 1000 MG/NS 1,000 MG/200 ML IVPB IV ONE (06:00)
[2019-08-26] MEDS ORDERED: MEFOXIN 1 GM/NS 1 GM/50 ML IVPB IV ONE (06:00)
[2019-08-26] MEDS ORDERED: VERSED ONE (07:02)
[2019-08-26] MEDS ORDERED: ALBUMIN 25% ONE ×2 (07:03→08:44)
[2019-08-26] MEDS ORDERED: MARCAINE 0.25% ONE (07:09)
[2019-08-26] MEDS ORDERED: SODIUM CHLORIDE 0.9% 10 ML ONE (07:10)
[2019-08-26] MEDS ORDERED: FENTANYL ONE (08:02)
[2019-08-26 08:28] LABS: URINE SOURCE CATH
[2019-08-26] MEDS ORDERED: OFIRMEV 1000 MG/ISOTONIC SOLN 1,000 MG/100 ML BOTTLE ONE (08:31)
[2019-08-26 08:32] LABS: BILIRUBIN URINE NEGATIVE (NEGATIVE); BLOOD URINE NEGATIVE (NEGATIVE); COLOR YELLOW; GLUCOSE URINE NEGATIVE (NEGATIVE); KETONE URINE NEGATIVE (NEGATIVE); LEUKOCYTES URINE NEGATIVE (NEGATIVE); NITRITE URINE NEGATIVE (NEGATIVE); PH URINE 5.5; PROTEIN URINE 50 mg/dL (NEGATIVE); SP GRAVITY URINE 1.024; TURBIDITY URINE CLEAR (CLEAR); UR EPITHELIAL CELLS <10 /HPF (<10); URINE BACTERIA NEGATIVE /HPF; URINE RBC <10 /HPF (<10); URINE WBC <10 /HPF (<10); UROBILINOGEN URINE NORMAL (NORMAL)
[2019-08-26] MEDS ORDERED: QUELICIN (DOSE) ONE (08:33)
[2019-08-26] MEDS ORDERED: DECADRON ONE (08:33)
[2019-08-26] MEDS ORDERED: ZEMURON ONE (08:33)
[2019-08-26] MEDS ORDERED: ZOFRAN ONE (08:33)
[2019-08-26] MEDS ORDERED: BRIDION ONE ×2 (08:44→10:09)
[2019-08-26] MEDS ORDERED: D5 1/2 NS + KCL 20 MEQ 1,000 ML ONE (10:10)
[2019-08-26] MEDS ORDERED: LR 1,000 ML ONE (10:21)
[2019-08-26] MEDS ORDERED: DUONEB (A & A) INH ONE (10:25)
[2019-08-26] MEDS ORDERED: DILAUDID PCA VIAL ONE (10:27)
--- NOTE | 2019-08-26 10:43 | Diag Imaging Result Doc PS360 ---
CHEST-PORTABLE - 08/26/2019 INDICATION: Central line placement COMPARISON: 08/24/2019 FINDINGS: There is a new endotracheal tube in good position at T4. There is a new right subclavian central line in good position with the catheter tip in the mid SVC. Stable left-sided dual-chamber pacemaker. Stable cardiomegaly. No dense infiltrates. No pneumothorax or pleural effusion. IMPRESSION: No complications. Electronically signed by Rivas Scott 08/26/2019 10:40 AM
[2019-08-26] MEDS ORDERED: ROMAZICON (DOSE) ONE (10:49)
--- NOTE | 2019-08-26 11:05 | OPERATIVE NOTE ---
PROCEDURE DATE: 08/26/2019 PREOPERATIVE DIAGNOSES: Multiple medical problems includin. Coronary disease. 2. Significant chronic obstructive pulmonary disease. 3. A low ejection fraction of the heart. 4. Sigmoid colon cancer. PROCEDURE: 1. Placement of arterial line. 2. Placement right subclavian line. 3. Exploratory laparotomy with sigmoid resection and 28 mm EEA anastomosis. SURGEONS: Terry Tripp MD. Julien Melchor MD. DESCRIPTION OF PROCEDURE: The patient was brought to the operating room. After satisfactory induction of IV and endotracheal anesthesia, athrombic TEDs and Swartz catheter were placed. A right radial arterial line was placed and a right subclavian triple-lumen catheter was placed. He was subsequently placed in the exenteration stirrups. His abdomen and perineum were prepped and draped in the appropriate manner. A supraumbilical to pubis midline incision was taken sharply down through skin and subcutaneous tissue. Fascia was incised in the midline and the peritoneum was entered. Hemostasis was obtained by electrocautery. Exploration revealed the tattooed lesion to be at the rectosigmoid junction. Palpation of the liver revealed it to be smooth but there were multiple stones in the gallbladder. The sigmoid was mobilized along the white line of Toldt. It was freed up proximal and distal to the tumor approximately 5 cm proximal and 5 cm distal. Proximally the sigmoid was divided with a pursestring device, incised with 28 mm EEA and the anvil was sewed in around the pursestring device. Distally the colon was divided with a TA-45 stapler. Mesenteric attachments were taken down with the LigaSure instrument. On reaching the superior hemorrhoidals, a Dee Dee clamp double tie of 0 silk and 2-0 silk suture were used to control of the superior hemorrhoidal's. On completion the specimen was marked proximally and removed from the field. The wound was irrigated. Standard transrectal EEA anastomosis was performed with a 28 mm EEA. The anastomosis would admit the tip of 1 finger. The [place] test was negative for leak. After accounting for all laparotomy sponges, omentum was drawn down over the anastomosis. The peritoneum was closed in a single running layer of #1 Vicryl. The fascia was closed with interrupted #1 Maxon. Subcu was debrided and closed with 3-0 Vicryl and the skin itself with stainless steel clips. Sterile dressings were applied. Swartz catheter was left indwelling. The patient was awakened in the operating room and transferred to recovery in stable condition. ESTIMATED BLOOD LOSS: 150 mL. ADDENDUM: On initiation of the general anesthesia, the anesthesiologist performed a TAP block as well. The patient be monitored in intensive care unit with his multiple medical problems. cc: Terry Tripp MD
[2019-08-26] MEDS: D5 1/2 NS + KCL 20 MEQ 1,000 ML IV SCH ×2 (12:00→21:49)
[2019-08-26] MEDS ORDERED: NARCAN 0.4 MG in LR 1,000 ML IV PRN (13:00)
[2019-08-26] MEDS ORDERED: ATARAX PO PRN (13:00)
[2019-08-26] MEDS ORDERED: NARCAN IV PRN (13:00)
[2019-08-26] MEDS ORDERED: ZOFRAN IV PRN (13:00)
[2019-08-26] MEDS ORDERED: DILAUDID PCA VIAL IV PRN (13:00)
[2019-08-26] MEDS ORDERED: SODIUM CHLORIDE 0.9% INJ PRN (13:00)
[2019-08-26] MEDS ORDERED: PHENERGAN IV PRN (13:00)
[2019-08-26] MEDS ORDERED: LR 1,000 ML IV SCH (13:00)
[2019-08-26] MEDS ORDERED: BENADRYL IV PRN (13:00)
[2019-08-26] MEDS: PROTONIX IV SCH (13:38)
[2019-08-26] MEDS: SODIUM CHLORIDE 0.9% INJ SCH (13:38)
[2019-08-26] MEDS: MEFOXIN 1 GM/NS 1 GM/50 ML IVPB IV SCH ×2 (15:47→23:18)
[2019-08-26] MEDS: FLAGYL 1000 MG/NS 1,000 MG/200 ML IVPB IV SCH ×2 (17:16→23:18)
[2019-08-26] MEDS: VENTOLIN HFA INH SCH (21:08)
[2019-08-27] MEDS: VENTOLIN HFA INH SCH ×4 (03:36→20:37)
[2019-08-27 04:32] LABS: HEMATOCRIT 39.7 % (42.0-52.0); HEMOGLOBIN 12.8 g/dL (14.0-18.0); MCHC 32.2 g/dL (33-37); MCV 89.8 FL (81-99); MPV 9.6 FL (7.4-10.4); RBC 4.42 XMIL (4.7-6.1); RDW 13.9 % (11.5-14.5); WBC 17.53 X1000 (4.8-10.8)
[2019-08-27 04:50] LABS: AGAP 10; BUN 14 mg/dL (8-22); CALCIUM 8.6 mg/dL (8.8-10.2); CHLORIDE 104 mmol/L (98-107); COSMO 275; CREATININE 0.7 mg/dL (0.7-1.2); ESTIMATED GFR > 60; GLUCOSE 145 mg/dL (70-104); POTASSIUM 4.7 mmol/L (3.5-5.1); SODIUM 136 mmol/L (136-145); TCO2 22 mmol/L (25-35)
[2019-08-27 04:52] LABS: ALLEN TEST YES; BE -2.4 mmoll (-3.0-3.0); BLOOD TYPE ARTERIAL; METHB 0.9 % (0.0-1.5); O2(CT) 16.4 mL/dL (15.0-23.0); O2HB 95.7 % (95.0-99.0); PCO2(98.6) 45 mmHg (35-45); PO2(98.6) 90 mmHg (60-100); SAMPLE BLOOD; THB 12.1 g/dL (11.5-17.4); pH(98.6) 7.33 (7.35-7.45)
[2019-08-27 04:53] LABS: MODALITY CANNULA
[2019-08-27] MEDS: MEFOXIN 1 GM/NS 1 GM/50 ML IVPB IV SCH ×3 (06:32→23:38)
[2019-08-27] MEDS: D5 1/2 NS + KCL 20 MEQ 1,000 ML IV SCH ×2 (06:48→09:57)
--- NOTE | 2019-08-27 07:34 | Diag Imaging Result Doc PS360 ---
EXAM: CHEST-PORTABLE HISTORY: POST SURGERY TECHNIQUE: Single view COMPARISON: 08/26/2019 FINDINGS: The lungs are well expanded. The heart is enlarged. Mild pulmonary edema. There is a small left pleural effusion. No change in the right subclavian line on the left pacemaker. The endotracheal tube has been removed. IMPRESSION: Persistent pulmonary edema Electronically signed by Stevo Esparza 08/27/2019 7:32 AM
--- NOTE | 2019-08-27 07:34 | EKG Report ---
Test Performed on : 08/27/2019 06:50:48 AM Test Reason : ordered by Blood Pressure : / mmHG Vent. Rate : 089 BPM Atrial Rate : 078 BPM P-R Int : 000 ms QRS Dur : 110 ms QT Int : 356 ms P-R-T Axes : 000 049 156 degrees QTc Int : 433 ms Atrial fibrillation. Incomplete left bundle branch block ST & T wave abnormality, consider lateral ischemia Abnormal ECG When compared with ECG of 24-AUG-2019 08:48, No significant change was found Confirmed by Checo INFANTE, Elier Sanches ([id number]) on 08/29/2019 9:24:19 AM
[2019-08-27] MEDS: FLAGYL 1000 MG/NS 1,000 MG/200 ML IVPB IV SCH ×3 (08:01→23:31)
[2019-08-27] MEDS ORDERED: FLAGYL 1000 MG/NS 1,000 MG/200 ML IVPB IV SCH (08:30)
[2019-08-27] MEDS: LASIX IV SCH (09:21)
[2019-08-27] MEDS: SODIUM CHLORIDE 0.9% INJ SCH (12:40)
[2019-08-27] MEDS: PROTONIX IV SCH (12:40)
[2019-08-28] MEDS: VENTOLIN HFA INH SCH ×4 (04:00→22:00)
[2019-08-28] MEDS: D5 1/2 NS + KCL 20 MEQ 1,000 ML IV SCH (04:48)
[2019-08-28 06:50] LABS: BASO# 0.01 X1000 (0.0-0.2); BASO% 0.1 % (0.0-0.8); EOS# 0.01 X1000 (0.0-0.7); EOS% 0.1 % (0.0-10.0); HEMATOCRIT 41.2 % (42.0-52.0); HEMOGLOBIN 13.2 g/dL (14.0-18.0); IMM GRAN# 0.05 X1000 (0.0-0.04); IMM GRAN% 0.3 % (0.0-0.5); LYMPH# 1.86 X1000 (1.2-3.4); LYMPH% 10.5 % (20.5-51.1); MCH 29.4 PG (27-31); MCV 91.8 FL (81-99); MONO# 1.71 X1000 (0.11-0.59); MONO% 9.6 % (1.7-9.3); MPV 10.5 FL (7.4-10.4); NEUT# 14.14 X1000 (1.4-6.5); NEUT% 79.4 % (42.2-75.2); PLT 169 X1000 (130-400); RBC 4.49 XMIL (4.7-6.1); RDW 14.5 % (11.5-14.5); WBC 17.78 X1000 (4.8-10.8)
[2019-08-28 07:13] LABS: AGAP 11; BUN 13 mg/dL (8-22); CHLORIDE 102 mmol/L (98-107); COSMO 271; CREATININE 0.7 mg/dL (0.7-1.2); ESTIMATED GFR > 60; GLUCOSE 114 mg/dL (70-104); POTASSIUM 4.7 mmol/L (3.5-5.1); SODIUM 135 mmol/L (136-145); TCO2 22 mmol/L (25-35)
[2019-08-28] MEDS: MEFOXIN 1 GM/NS 1 GM/50 ML IVPB IV SCH (07:46)
[2019-08-28] MEDS: FLAGYL 1000 MG/NS 1,000 MG/200 ML IVPB IV SCH (08:50)
[2019-08-28] MEDS: LOVENOX SUBQ SCH (10:36)
[2019-08-28] MEDS: LASIX IV SCH ×2 (10:36→11:13)
[2019-08-28] MEDS: LANOXIN PO SCH (11:13)
[2019-08-28] MEDS: FLOMAX PO SCH (11:14)
[2019-08-28] MEDS: ALDACTONE PO SCH (11:14)
[2019-08-28] MEDS: LASIX PO SCH (11:33)
[2019-08-28] MEDS: SODIUM CHLORIDE 0.9% INJ SCH (12:30)
[2019-08-28] MEDS: PROTONIX IV SCH (12:30)
[2019-08-29] MEDS: VENTOLIN HFA INH SCH ×4 (03:54→20:18)
[2019-08-29] MEDS: D5 1/2 NS + KCL 20 MEQ 1,000 ML IV SCH (06:56)
[2019-08-29 07:46] LABS: BASO# 0.02 X1000 (0.0-0.2); BASO% 0.2 % (0.0-0.8); EOS# 0.11 X1000 (0.0-0.7); HEMATOCRIT 37.5 % (42.0-52.0); HEMOGLOBIN 11.9 g/dL (14.0-18.0); IMM GRAN# 0.04 X1000 (0.0-0.04); IMM GRAN% 0.4 % (0.0-0.5); LYMPH# 1.45 X1000 (1.2-3.4); LYMPH% 13.6 % (20.5-51.1); MCH 28.9 PG (27-31); MCHC 31.7 g/dL (33-37); MONO# 1.23 X1000 (0.11-0.59); MONO% 11.5 % (1.7-9.3); MPV 10.4 FL (7.4-10.4); NEUT# 7.84 X1000 (1.4-6.5); NEUT% 73.3 % (42.2-75.2); PLT 151 X1000 (130-400); RBC 4.12 XMIL (4.7-6.1); RDW 14.3 % (11.5-14.5); WBC 10.69 X1000 (4.8-10.8)
[2019-08-29] MEDS: LANOXIN PO SCH (08:26)
[2019-08-29] MEDS: ALDACTONE PO SCH (08:26)
[2019-08-29] MEDS: LASIX PO SCH (08:26)
[2019-08-29] MEDS: LOVENOX SUBQ SCH ×2 (08:26→10:21)
[2019-08-29] MEDS: FLOMAX PO SCH (08:26)
[2019-08-29] MEDS ORDERED: LASIX PO SCH (09:00)
--- NOTE | 2019-08-29 09:44 | Diag Imaging Result Doc PS360 ---
EXAM: CHEST-1 VIEW INDICATION: CHF TECHNIQUE: One view COMPARISON: 08/27/2019 FINDINGS: The right central line is in stable position. There is increased opacity at the right lower lung zone likely representing worsening edema. No other new consolidation is identified. Cardiac silhouette is stable. IMPRESSION: Increased opacity at the medial right lower lung zone likely representing worsened edema. Please correlate clinically. Stable chest, otherwise. Electronically signed by Tariq Lan 08/29/2019 9:41 AM
[2019-08-29] MEDS: ELIQUIS PO ONE ×2 (11:27→11:28)
[2019-08-29] MEDS: PROTONIX IV SCH (15:33)
[2019-08-29] MEDS: SODIUM CHLORIDE 0.9% INJ SCH (15:33)
[2019-08-29] MEDS: NORCO-10 PO PRN (19:04)
[2019-08-30] MEDS: VENTOLIN HFA INH SCH ×2 (03:34→08:52)
[2019-08-30] MEDS: NORCO-10 PO PRN (03:39)
[2019-08-30] MEDS: D5 1/2 NS + KCL 20 MEQ 1,000 ML IV SCH (06:54)
[2019-08-30 07:16] LABS: BASO# 0.03 X1000 (0.0-0.2); BASO% 0.2 % (0.0-0.8); EOS# 0.28 X1000 (0.0-0.7); EOS% 1.9 % (0.0-10.0); HEMATOCRIT 38.9 % (42.0-52.0); HEMOGLOBIN 12.8 g/dL (14.0-18.0); IMM GRAN# 0.05 X1000 (0.0-0.04); IMM GRAN% 0.3 % (0.0-0.5); LYMPH# 2.03 X1000 (1.2-3.4); LYMPH% 14.1 % (20.5-51.1); MCH 29.8 PG (27-31); MCHC 32.9 g/dL (33-37); MCV 90.7 FL (81-99); MONO# 1.54 X1000 (0.11-0.59); MONO% 10.7 % (1.7-9.3); MPV 10.5 FL (7.4-10.4); NEUT# 10.51 X1000 (1.4-6.5); NEUT% 72.8 % (42.2-75.2); PLT 209 X1000 (130-400); RBC 4.29 XMIL (4.7-6.1); RDW 14.4 % (11.5-14.5); WBC 14.44 X1000 (4.8-10.8)
[2019-08-30 07:49] VITALS: BP 92/66
[2019-08-30 08:33] LABS: EOS 2 % (1-10); LYMPHS 10 % (21-51); MONO 8 % (1-9); SEGS 80 % (42-75)
[2019-08-30] MEDS ORDERED: ELIQUIS PO SCH (09:00)
[2019-08-30] MEDS: ALDACTONE PO SCH (09:52)
[2019-08-30] MEDS: LANOXIN PO SCH (09:52)
[2019-08-30] MEDS: FLOMAX PO SCH (09:52)
[2019-08-30] MEDS: LOVENOX SUBQ SCH (09:53)
[2019-08-30] MEDS: LASIX PO SCH (09:53)
--- NOTE | 2019-09-28 12:39 | DISCHARGE SUMMARY ---
ADMISSION DATE: 08/26/2019 DISCHARGE DATE: 08/30/2019 DIAGNOSES: 1. Adenocarcinoma of the sigmoid colon. 2. History of coronary disease with multiple stents in his heart. 3. Chronic obstructive pulmonary disease with heavy tobacco use. 4. Continued heavy alcohol use. 5. Peripheral vascular disease. HISTORY: The patient is a 78-year-old white male who was referred for evaluation bout from Dr. King after colonoscopy and biopsy of a sigmoid lesion. This revealed adenocarcinoma. He was cleared by the web feeder, but the anesthesiologist felt like he needed an arterial line and a central line. This was performed in the preoperative period. The sigmoid resection was performed with Dr. Olvera. There were no nodes. The hospitalization was relatively uneventful. He was initially kept in the intensive care unit but he was transferred to the floor prior to discharge. He tolerated his dietary advancements well, and was having spontaneous bowel movements at discharge. He will be seen in the office in 1 week's time but at this point, there is no plan for chemotherapy or radiation. cc: Terry Tripp MD
== END 2019-08-30 10:52 | disposition home health service (06) | DRG 330 ==
LOC: SURHOLD 05:09 → ICU 12:06 → 4N 08-28 23:11
PROVIDERS: ADMIT Surgery; ATTEND Surgery

== ENCOUNTER 2019-09-27 12:29 | Inpatient (IN) ==
[2019-09-27] MEDS ORDERED: DUONEB (A & A) INH ONE (14:16)
[2019-09-27] MEDS ORDERED: SOLU-MEDROL IV ONE (14:16)
[2019-09-27] MEDS ORDERED: LEVAQUIN 750 MG/D5W 750 MG/150 ML IVPB IV ONE (14:17)
--- NOTE | 2019-09-27 15:04 | PROVIDER DOCUMENTATION ---
HPI-General Adult - General Chief Complaint: Shortness of Breath Stated Complaint: difficulty breathing Time Seen by Provider: 09/27/19 14:01 Source: patient Allergies/Adverse Reactions: Patient Allergies Allergy/AdvReac Type Severity Reaction Status Date / Time Iodinated Contrast Media Allergy Severe ANAPHYLAXIS Verified 09/27/19 14:03 [Iodinated Contrast- Oral and IV Dye] Home Medications: Home Medication List Medication Instructions Recorded Confirmed Last Taken Type Aspirin [Aspir-Low] 81 mg PO DAILY 04/08/19 09/27/19 09/27/19 History Digoxin [Lanoxin] 125 microgm PO DAILY 30 Days #30 04/25/19 09/27/19 09/27/19 Rx tab Furosemide 40 mg PO DAILY 30 Days #60 tab 04/25/19 09/27/19 09/27/19 Rx Spironolactone [Aldactone] 25 mg PO DAILY 30 Days #30 tab 04/25/19 09/27/19 09/27/19 Rx Apixaban [Eliquis] 5 mg PO BID 08/24/19 09/27/19 09/27/19 History Docusate Sodium [Colace] 100 mg PO BID #40 cap 08/30/19 09/27/19 09/24/19 Rx Tamsulosin [Flomax] 0.4 mg PO DAILY #30 cap 08/30/19 09/27/19 09/27/19 Rx Amlodipine Besylate [Norvasc] 2.5 mg PO DAILY 09/24/19 09/27/19 09/27/19 History Fluticasone/Vilanterol [Breo 1 ea INHALATION ONCE #1 blst.w.dev 09/24/19 09/27/19 09/27/19 Rx Ellipta 200-25 Mcg INH] Hydrocodone/Acetaminophen [[place] 1 tab PO TID PRN 09/24/19 09/27/19 09/27/19 History 7.5-325 Tablet] - History of Present Illness -Gen Adult Nature of Presenting Problems: 78 year old male [facility] significant for chronic COPD and recent hospital visit with the diagnosis of pneumonia, the patient states he was recently seen here at [facility] and diagnosed with PNA and discharged home on a Z-pack. The patient states he has finished the Z-pack but is still having symptoms of shortness of breath worse since the prior visit, dyspnea on exertion, and increasing nebulizer treatment and oxygen demand at home. The SOB is worse with exertion, better with rest and nebulizer treatment. He denies any associated fever, chills, headache, changes in vision or hearing, chest pain, palpitations, hemoptysis, personal history of cancer, h/o prior PE or DVT, no recent surgery or long travel, and no abdominal pain. He does endorse a productive cough of yellow phlegm. Additionally the patient is normally on 3 L supplemental O2 at home. Review of Systems - Adult - REVIEW OF SYSTEMS - ADULT Constitutional: reports: fatique. denies: chills, fever Eyes: denies: decreased vision, blurred vision, double vision Ears, Nose, Mouth & Throat: reports: no symptoms reported Cardiovascular: denies: chest pain, heart murmur, irregular heart rate, orthopnea, palpitations, syncope Respiratory: reports: chronic cough, dyspnea on exertion, excessive sputum production, shortness of breath. denies: hemoptysis Gastrointestinal: denies: abdominal pain, hematemesis, diarrhea, nausea, vomiting Genitourinary: denies: dysuria, flank pain, frequent UTI's, hematuria, urgency Musculoskeletal: denies: back pain, frequent leg cramps Integumentary: reports: no symptoms reported Neurological: reports: no symptoms reported Psychiatric: reports: no symptoms reported Endocrine: reports: no symptoms reported Hematologic/Lymphatic: reports: no symptoms reported Allergic/Immunologic: reports: no symptoms reported All Other Systems: Reviewed and Negative Past History - Adult - PAST MEDICAL HISTORY-ADULT Review of Records: reports: Old Records Reviewed, Nursing Assessment Review, Medications Reviewed, Social history reviewed & non-contributory. Major Childhood Illnesses: reports: denies history Cardiovascular: reports: HTN Respiratory: reports: COPD Gastrointestinal: reports: denies history Genitourinary: reports: denies history Musculoskeletal: reports: denies history, chronic pain Neurological: reports: denies history Psychiatric: reports: anxiety, depression Endocrine/Immune: reports: denies history Other Conditions: reports: denies history - PRIOR SURGERIES/PROCEDURES Surgical/Procedure History: reports: cardiac stent - IMMUNIZATION STATUS Childhood Immunizations: See Nurse Assessment Flu Vaccine: See Nurse Assessment - FAMILY HISTORY Family History: reviewed, not pertinent - SOCIAL HISTORY Smoking: cigarettes Substance Use: none/never Alcohol Use Frequency: occasionally Physical Exam-General - PHYSICAL EXAM-ADULT Initial Vital Signs Reviewed: Yes (stable) - CONSTITUTIONAL General Appearance: appears well, alert - EYES Eyes: PERRL/EOMI - HEAD, EARS, NOSE, MOUTH & THROAT HENMT: normocephalic/atraumatic. negative: moist mucous membranes (dry mucous membranes) - NECK Neck: non-tender, full range of motion, supple, normal inspection. negative: Brudzinski's sign, meningismus - RESPIRATORY Respiratory: chest non-tender, no accessory muscle use, respiratory distress (speaks in short sentences before taking a breath), wheezing (diffuse expiratory wheezing throughout) - CARDIOVASCULAR Cardiovascular: normal peripheral pulses, regular rate, rhythm, no edema, no gallop, no JVD, no murmur - GASTROINTESTINAL (ABDOMEN) Abdominal Exam: non tender, soft - MUSCULOSKELETAL Extremity: normal range of motion, normal gait, normal inspection, no pedal edema Peripheral Pulses: radial (R): 2+, radial (L): 2+ - SKIN Integumentary: warm/dry. negative: normal turgor (poor turgor) - NEUROLOGIC Neurologic: grossly normal, no motor/sensory deficits - PSYCHIATRIC Psych/Mental Status: normal mood/affect, normal thought content, normal thought process, oriented x 3 Progress - PLAN OF CARE/RESULTS Progress/Plan/Lab Results: Vital Signs - 8 hr 09/27/19 13:49 Temperature 97.9 F Pulse Rate 88 Respiratory Rate 25 H Blood Pressure 121/82 O2 Sat by Pulse Oximetry 94 L Orders Category Date Time Status Cardiac Monitoring DIRECTED Care 09/27/19 14:14 Active NEWS Score 2-4:Order NEWS Lactate Series NOW Care 09/27/19 13:56 Active Oxygen Therapy- ED Nursing DIRECTED Care 09/27/19 14:14 Active Saline Loc NOW Care 09/27/19 14:14 Active CHEST-2 VIEWS [RAD] Stat Exams 09/27/19 14:14 Ordered CBC WITH ELECTRONIC DIFF [HEME] Stat Lab 09/27/19 14:31 Results CK PROFILE [SP CHEM] Stat Lab 09/27/19 14:31 Received COMPREHENSIVE METABOLIC PANEL [CHEM] Stat Lab 09/27/19 14:31 Received LACTATE, PLASMA [CHEM] Lab 09/27/19 14:31 Received LACTATE, PLASMA [CHEM] Lab 09/27/19 17:15 Uncollected LACTATE, PLASMA [CHEM] Lab 09/27/19 20:15 Uncollected PRO B-NATRIURETIC PEPTIDE Stat Lab 09/27/19 14:31 Received PROTIME WITH INR [COAG] Stat Lab 09/27/19 14:31 Received PTT [COAG] Stat Lab 09/27/19 14:31 Received TROPONIN T HIGH SENSITIVITY Stat Lab 09/27/19 14:31 Received Albuterol 2.5MG/Ipratrop 0.5MG [Duoneb (A & A)] Med 09/27/19 14:16 Discontinued 3 ml INH NOW ONE Levofloxacin 750 mg/D5w [Levaquin 750 mg/D5w] Med 09/27/19 14:17 Active 750 mg in 150 ml IV NOW Methylprednisolone Sod Succ [Solu-Medrol] Med 09/27/19 14:16 Discontinued 125 mg IV NOW ONE Aerosol Treatments Routine Oth 09/27/19 14:16 Active Aerosol Treatments Stat Oth 09/27/19 14:16 Active CP/SOB/Palp >45 yrs of Age Stat Oth 09/27/19 14:14 Ordered EKG [EKG] Stat Ther 09/27/19 14:14 Ordered Result Diagrams: 09/27/19 14:31 09/27/19 14:31 - REASSESSMENT Reassessment #1 Time Reassessed: 15:45 (lungs improved prior to duonebs) Status: improving Reassessment Comment: Patient still meeting criteria for inpatient antibiotics - XRAY 1 XRAY Study: Chest Impression: Abnormal, See EMR Report (EXAM: CHEST-2 VIEWS 09/27/2019 HISTORY: Dyspnea, recently admitted for pneumonia TECHNIQUE: AP and lateral chest COMMENT: Compared to 09/24/2019 the retrocardiac opacity on the left has cleared. There is worsened opacification obscuring the right hemidiaphragm in the right lower lobe however. IMPRESSION: Waxing and waning basilar opacities. 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 Trinh Time Discussed: 15:51 (Admit inpatient) Reason/Comments: RLL PNA failed outpatient therapy Consult Disposition: Will see in ED, Admit Departure - Departure Date of Disposition Decision: 09/27/19 Time of Disposition Decision: 15:34 (Admit inpatient) DIAGNOSIS: Dyspnea on exertion, Tobacco use disorder, Acute exacerbation of chronic obstructive pulmonary disease, Bandemia Right lower lobe pneumonia Qualifiers: Pneumonia type: due to unspecified organism Qualified Code(s): J18.1 - Lobar pneumonia, unspecified organism Disposition: ADMITTED INPATIENT 09 Certified Medical Emergency: Emergent Condition: Fair Referrals and Follow-Ups: Kenney Eaton MD [Primary Care Provider] - - Critical Care Note This patient required my direct & personal management of CC.: Yes Total Time (mins): 45 Critical Care Statement: This patient required my direct personal management to treat or rule out processes, the absence of which, could potentiallly result in sudden, clinically significant life or limb threatening deterioration. Attestation - Physician/ KEYUR Attestation Patient care was provided by Advanced Practice Provider:: No The physician spent face to face time with patient:: Yes Advanced Practice Provider documentation review:: Supervising physician onsite and consulted in the evaluation and care of this patient. The physician did have a face to face encounter with the patient.
[2019-09-27 15:09] LABS: BASO# 0.01 X1000 (0.0-0.2); BASO% 0.1 % (0.0-0.8); EOS# 0.06 X1000 (0.0-0.7); EOS% 0.5 % (0.0-10.0); HEMOGLOBIN 12.9 g/dL (14.0-18.0); IMM GRAN# 0.03 X1000 (0.0-0.04); IMM GRAN% 0.3 % (0.0-0.5); LYMPH# 1.59 X1000 (1.2-3.4); LYMPH% 13.7 % (20.5-51.1); MCH 28.6 PG (27-31); MCHC 31.5 g/dL (33-37); MCV 90.9 FL (81-99); MONO# 1.23 X1000 (0.11-0.59); MONO% 10.6 % (1.7-9.3); MPV 9.9 FL (7.4-10.4); NEUT# 8.65 X1000 (1.4-6.5); NEUT% 74.8 % (42.2-75.2); PLT 227 X1000 (130-400); RBC 4.51 XMIL (4.7-6.1); WBC 11.57 X1000 (4.8-10.8)
[2019-09-27 15:15] LABS: INR 1.32; PROTIME 16.6 Seconds (11.0-16.0)
[2019-09-27 15:16] LABS: PTT 41.5 Seconds (22.3-41.8)
[2019-09-27 15:28] LABS: AGAP 13; ALB/GLOB RATIO 1.3; ALBUMIN 4.1 g/dL (3.5-5.0); ALKALINE PHOSPHATASE 81 U/L (32-122); BUN 21 mg/dL (8-22); CALCIUM 9.8 mg/dL (8.8-10.2); CHLORIDE 92 mmol/L (98-107); CK PROFILE 59 U/L (24-204); COSMO 277; CREATININE 0.8 mg/dL (0.7-1.2); ESTIMATED GFR > 60; GLUCOSE 109 mg/dL (70-104); GOT 19 U/L (10-34); GPT 15 U/L (10-44); POTASSIUM 4.5 mmol/L (3.5-5.1); SODIUM 137 mmol/L (136-145); TCO2 32 mmol/L (25-35); TOTAL BILIRUBIN 1.32 mg/dL (0.20-1.00); TOTAL PROTEIN 7.2 g/dL (6.3-8.3)
--- NOTE | 2019-09-27 15:28 | Diag Imaging Result Doc PS360 ---
EXAM: CHEST-2 VIEWS 09/27/2019 HISTORY: Dyspnea, recently admitted for pneumonia TECHNIQUE: AP and lateral chest COMMENT: Compared to 09/24/2019 the retrocardiac opacity on the left has cleared. There is worsened opacification obscuring the right hemidiaphragm in the right lower lobe however. IMPRESSION: Waxing and waning basilar opacities. Electronically signed by Eric Higgins 09/27/2019 3:25 PM
[2019-09-27] MEDS ORDERED: NORCO-7.5 PO ONE (15:57)
--- NOTE | 2019-09-27 16:10 | ED EKG INTERP ---
This chart was entered by Tonya Garcia Scribe, acting as scribe for Kenney Wilson DO. EKG Interpretation - EKG Time of EKG reading by physician:: 15:55 EKG Read and Signed by:: Kenney Wilson EKG Interpretation (*Must complete 3 of following elements*): Abnormal Rate: 102 Rhythm: atrial fibrillation [place]: normal Comments: nonspecific T wave changes V5 and V6 Attestation - Physician/ KEYUR Attestation Patient care was provided by Advanced Practice Provider:: No The physician spent face to face time with patient:: Yes Advanced Practice Provider documentation review:: Supervising physician onsite and consulted in the evaluation and care of this patient. The physician did have a face to face encounter with the patient. This chart was documented by the indicated scribe, (Tonya Garcia Scribe) and accurately reflects the services I performed and decisions made by Katie zarate Michael B., DO, as attested by the provider's signature.
[2019-09-27] MEDS ORDERED: NS NEB INH SCH (17:59)
[2019-09-27] MEDS ORDERED: LANOXIN IV ONE (17:59)
[2019-09-27] MEDS ORDERED: XOPENEX NEB INH PRN (17:59)
--- NOTE | 2019-09-27 17:59 | HISTORY AND PHYSICAL ---
HISTORY OF PRESENT ILLNESS: This is a 78-year-old who said he was here in the emergency room I think on Friday. Anyway, he had diagnosed pneumonia. They had wanted him to stay in the hospital, but he wanted to leave, and he feels like he has got more congestion and that he is worse. He does not really describe fever or chills but just more shortness of breath. Apparently he does have oxygen that he usually does not have to use at home. PAST MEDICAL HISTORY: 1. Congestive heart failure. Last echocardiogram showed ejection fraction 20 to 25 percent. Also has had a heart catheterization and was told he had normal coronaries, but apparently he has had stents. I think what he is saying is that his stents were open. No sign of coronary insufficiency. 2. Coronary artery disease status post stents. 3. COPD with chronic hypoxemia. 4. Hypertension. 5. Peripheral vascular disease. 6. Cardiomyopathy, appears to be ischemic cardiomyopathy. 7. Atrial fibrillation. 8. Benign prostatic hypertrophy. PAST SURGICAL HISTORY: 1. Circumcision. 2. Coronary stent placement. SOCIAL HISTORY: Previously smoked a pack a day, and now he smokes 1 to 2 cigarettes a day. No alcohol or illicit drugs. FAMILY HISTORY: Notable for diabetes and heart disease first-degree relative. ALLERGIES: Allergic to iodinated contrast media. REVIEW OF SYSTEMS: General: He does not describe any weight gain or loss. Denied any fever or chills. HEENT: No change in visual or hearing acuity. He just has a lot of postnasal drainage, a lot of mucus and sinus congestion and chest congestion. Respiratory: Increased dyspnea. It is harder to breathe. Feels like his chest is congested. Cardiovascular: No chest pain or tachy palpitations. Gastrointestinal and Genitourinary: No gross hematuria or dysuria. Musculoskeletal and Neurologic: No significant complaints. Endocrinologic and Hemologic: No significant history. He does report he has trouble with constipation. PHYSICAL EXAMINATION: VITAL SIGNS: Temperature 97.9 degrees, pulse 90, respirations 15, blood pressure 100/68. O2 sats 93%. Weight 185 pounds, height 5 feet 11 inches. EYES: Pupils are equal and round. LUNGS: Clear in all lung james. CARDIOVASCULAR EXAM: Regular rhythm and rate without murmur or S3. ABDOMEN: Soft. SKIN: Warm and dry. LABORATORY DATA: White count 11,570, hematocrit 41, platelet count 227,000, sodium 137, potassium 4.5, chloride 92, BUN 21, creatinine 0.8. AST is 19, ALT is 15, alkaline phosphatase is 81. PT is 16, INR 1.32, PTT was 41. Chest x-ray, some basilar opacities compared to 09/24/2019, retrocardiac opacity in the left is clear. There is worsened opacification obscuring the right hemidiaphragm in the right lower lobe. ASSESSMENT AND PLAN: 1. Right lower lobe pneumonia. It looks like he has had bibasilar pneumonia so we are going to put him in the hospital and treat him with IV antibiotics, and we will use ceftriaxone 1 g daily IV. We will give him some DuoNeb q.4 hours while awake. He is on Breo Ellipta, so we will continue that 200/25 one puff daily. 2. Congestive heart failure. It looks like he has ischemic cardiomyopathy. Continue his Lasix 40 mg a day, spironolactone 25 mg a day. 3. History of atrial fibrillation, which is chronic. He is already on Eliquis. While in the emergency room on monitor, he was in atrial fibrillation. Rate appears controlled. 4. Hypertension. Continue his Norvasc. cc: Fortino Trinh MD
[2019-09-27] MEDS: ROCEPHIN 1 GM in NS 50 ML IV SCH (18:57)
[2019-09-27] MEDS: NORCO-7.5 PO PRN ×2 (18:57→23:56)
[2019-09-27] MEDS: XOPENEX NEB INH SCH (21:43)
--- NOTE | 2019-09-27 22:39 | EKG Report ---
Test Performed on : 09/27/2019 3:50:51 PM Test Reason : Dyspnea Blood Pressure : / mmHG Vent. Rate : 102 BPM Atrial Rate : 107 BPM P-R Int : 000 ms QRS Dur : 106 ms QT Int : 342 ms P-R-T Axes : 000 050 161 degrees QTc Int : 445 ms Atrial fibrillation. with rapid ventricular response. Anterior infarct , age undetermined Abnormal ECG When compared with ECG of 24-SEP-2019 11:35, (Unconfirmed) No significant change was found Unconfirmed Result
[2019-09-27] MEDS: COLACE PO SCH (23:10)
[2019-09-27] MEDS: MUCINEX PO SCH (23:10)
[2019-09-27] MEDS: SOLU-MEDROL IV SCH (23:12)
[2019-09-27] MEDS: ELIQUIS PO SCH (23:50)
[2019-09-28] MEDS: SOLU-MEDROL IV SCH (05:15)
[2019-09-28 06:12] LABS: HEMATOCRIT 39.5 % (42.0-52.0); HEMOGLOBIN 12.7 g/dL (14.0-18.0); IMM GRAN# 0.02 X1000 (0.0-0.04); IMM GRAN% 0.3 % (0.0-0.5); LYMPH% 6.8 % (20.5-51.1); MCHC 32.2 g/dL (33-37); MCV 90.2 FL (81-99); MONO# 0.14 X1000 (0.11-0.59); MONO% 1.9 % (1.7-9.3); MPV 9.8 FL (7.4-10.4); NEUT# 6.66 X1000 (1.4-6.5); PLT 242 X1000 (130-400); RBC 4.38 XMIL (4.7-6.1); RDW 13.9 % (11.5-14.5); WBC 7.32 X1000 (4.8-10.8)
[2019-09-28 06:21] LABS: AGAP 11; ALB/GLOB RATIO 1.3; ALBUMIN 3.8 g/dL (3.5-5.0); ALKALINE PHOSPHATASE 72 U/L (32-122); BUN 20 mg/dL (8-22); CALCIUM 9.4 mg/dL (8.8-10.2); CHLORIDE 95 mmol/L (98-107); COSMO 274; CREATININE 0.7 mg/dL (0.7-1.2); ESTIMATED GFR > 60; GLUCOSE 127 mg/dL (70-104); GOT 19 U/L (10-34); GPT 17 U/L (10-44); POTASSIUM 4.7 mmol/L (3.5-5.1); SODIUM 135 mmol/L (136-145); TCO2 29 mmol/L (25-35); TOTAL BILIRUBIN 0.93 mg/dL (0.20-1.00); TOTAL PROTEIN 6.7 g/dL (6.3-8.3)
--- NOTE | 2019-09-28 06:29 | Diag Imaging Result Doc PS360 ---
EXAM: CHEST-PORTABLE HISTORY: Pneumonia TECHNIQUE: Single view COMPARISON: 09/27/2019 FINDINGS: There are infiltrates and atelectasis in the right lung base. The heart remains enlarged. Mild central vascular prominence. The left lung is clear. There is a left-sided pacemaker. IMPRESSION: No interval improvement Electronically signed by Stevo Esparza 09/28/2019 6:27 AM
[2019-09-28 06:42] LABS: FREE T4 1.69 ng/dL (0.93-1.70); TSH 0.57 uIUmL (0.27-4.20)
[2019-09-28 06:55] LABS: LYMPHS 3 % (21-51); SEGS 97 % (42-75)
[2019-09-28] MEDS: BREO ELLIPTA 200/25 MCG INH INH SCH (08:49)
[2019-09-28] MEDS: COLACE PO SCH ×2 (08:51→21:45)
[2019-09-28] MEDS: FLOMAX PO SCH (08:51)
[2019-09-28] MEDS: LANOXIN PO SCH (08:52)
[2019-09-28] MEDS: ELIQUIS PO SCH ×2 (08:53→21:45)
[2019-09-28] MEDS: ALDACTONE PO SCH (08:53)
[2019-09-28] MEDS: ASPIRIN EC PO SCH (08:53)
[2019-09-28] MEDS: MUCINEX PO SCH ×2 (08:53→21:45)
[2019-09-28] MEDS: NORCO-7.5 PO PRN ×2 (08:53→16:56)
[2019-09-28] MEDS: NORVASC PO SCH (08:54)
[2019-09-28] MEDS ORDERED: LASIX PO SCH (09:00)
[2019-09-28] MEDS: XOPENEX NEB INH SCH ×3 (10:55→21:25)
--- NOTE | 2019-09-28 13:37 | PROGRESS NOTE ---
DATE: 09/28/2019 INTERVAL HISTORY: Patient with improving dyspnea. Still some largely nonproductive cough. Afebrile. No acute events overnight. No new complaints. REVIEW OF SYSTEMS: Twelve point review of systems negative except as per interval history. LABORATORY DATA: WBC 7.3, hemoglobin 12.7, hematocrit 39.5, platelets 242,000. Sodium 135, potassium 4.7, BUN 20, creatinine 0.7, glucose 111. VITAL SIGNS: T-max 97.9 degrees, pulse 105 to 84, respirations 22, blood pressure 130/99, O2 saturation 97% on 2 L by nasal cannula. IMAGING: Chest x-ray similar to previous with mild infiltrate at the right base. PHYSICAL EXAMINATION: General: No acute distress. Vitals: As above. HEENT: Normocephalic, atraumatic. Moist mucous membranes. No cervical adenopathy. Cardiovascular: Regular rate and rhythm at the time of my exam. No murmurs noted. Pulmonary: Minimal right base crackles, otherwise clear to auscultation bilaterally. Abdomen: Soft, nontender, nondistended. Bowel sounds positive. Extremities: Peripheral pulses intact. No clubbing or cyanosis. Trace lower extremity edema bilaterally. Neurologic: Cranial nerves grossly intact. No focal deficits. Psychiatric: Normal mood and affect. Awake, alert, oriented x3. ASSESSMENT AND PLAN: 1. Pneumonia with failure of outpatient antibiotics. Patient tolerating azithromycin at home. Placed on Rocephin here and appears to be improving rapidly. We will continue Rocephin and monitor. If he continues to improve then may be able to be transitioned to oral antibiotics and discharged tomorrow. 2. Chronic systolic congestive heart failure. Nothing to suggest exacerbation at this time but will continue to monitor. We will continue on his home aspirin, digoxin, Lasix and spironolactone. 3. Chronic obstructive pulmonary disease. No sign of exacerbation at this time. Continue to monitor. Wean steroids as he really does not have any wheezing at this point. 4. Hypertension. Continue home blood pressure and heart failure medications as above. 5. Peripheral vascular disease. Continue aspirin. 6. Coronary artery disease. Continue aspirin as noted above. Recommend patient discuss starting statin with his primary care physician or press loader. 7. Atrial fibrillation. Normal sinus rhythm currently, but continue digoxin and Eliquis. 8. Benign prostatic hypertrophy. Continue on tamsulosin. 9. Tobacco use. Patient counseled on cessation. 10. Elevated troponin, minimally elevated and flat on recheck, likely chronically elevated with demand ischemia/type 2 myocardial infarction.
--- NOTE | 2019-09-28 16:28 | ECHO REPORT ---
ORDER DATE: 09/28/2019 2D ECHOCARDIOGRAM.: ECHOCARDIOGRAPHIC MEASUREMENTS: 1. Interventricular septum 1.1. 2. Left ventricular posterior wall 0.7. 3. Diastolic diameter 6.8. 4. Left atrium 5.2. 5. Aorta 3.1. 6. Right ventricle 3.6. 7. Right atrium 4.3 cm. SUMMARY: 1. Aortic valve leaflets were trileaflet. 2. Pulmonic valve was normal. 3. There is trace pulmonary regurgitation. 4. Mitral valve was normal. 5. Pacing leads are noted in the right chamber. 6. There is moderate to severe biatrial enlargement. 7. There is moderate tricuspid regurgitation. 8. Peak velocity across the tricuspid valve was 3 m/sec. 9. Pulmonary artery systolic pressure of 50 mmHg. 10. Atrial fibrillation baseline was noted. 11. There is severe mitral regurgitation. 12. There is no pericardial effusion or obvious intracardiac mass or thrombus seen. 13. Dilated left ventricle with severely reduced systolic function. Estimated ejection fraction of 20%. There is severe global hypokinesis. cc: Otoniel Phillips MD MTDD
[2019-09-28] MEDS: ROCEPHIN 1 GM in NS 50 ML IV SCH ×2 (16:45→17:03)
[2019-09-29] MEDS: NORVASC PO SCH (07:50)
[2019-09-29] MEDS: NORCO-7.5 PO PRN (07:50)
[2019-09-29] MEDS: COLACE PO SCH (07:51)
[2019-09-29] MEDS: ELIQUIS PO SCH (07:51)
[2019-09-29] MEDS: FLOMAX PO SCH (07:51)
[2019-09-29] MEDS: LANOXIN PO SCH (07:51)
[2019-09-29] MEDS: ASPIRIN EC PO SCH (07:51)
[2019-09-29] MEDS: ALDACTONE PO SCH (07:51)
[2019-09-29] MEDS: MUCINEX PO SCH (07:51)
[2019-09-29] MEDS ORDERED: XOPENEX NEB ONE (08:04)
[2019-09-29] MEDS ORDERED: NS NEB ONE (08:04)
[2019-09-29] MEDS: BREO ELLIPTA 200/25 MCG INH INH SCH (08:10)
[2019-09-29] MEDS ORDERED: PREDNISONE PO SCH (09:00)
[2019-09-29 11:17] VITALS: BP 113/76
--- NOTE | 2019-09-30 10:06 | DISCHARGE SUMMARY ---
ADMISSION DATE: 09/27/2019 DISCHARGE DATE: 09/29/2019 DISCHARGE DIAGNOSES: 1. Pneumonia with failure of outpatient antibiotics. 2. Chronic systolic congestive heart failure. 3. Chronic obstructive pulmonary disease. 4. Hypertension. 5. Peripheral vascular disease. 6. Coronary artery disease. 7. Paroxysmal atrial fibrillation. 8. Benign prostatic hypertrophy. 9. Tobacco use. HOSPITAL COURSE: The patient a few days prior to admission been seen in the ER and diagnosed with pneumonia. He was sent home on azithromycin. Despite this, he had worsening cough and dyspnea and so he came back to care. He was found to have what appeared to be worsening basilar pneumonia. He was placed on Rocephin initially and had fairly rapid improvement in his symptoms. On the day of discharge, he was saturating well on room air, walking around the floor with no symptoms of dyspnea. He still a little bit of a dry cough, but this was much improved. No signs of heart failure or COPD exacerbation were found. His other chronic comorbidities were stable. He did have a minimally elevated troponin at 69, but this was flat to slightly improved on rechecks at 47 and 41 respectively. There were no significant EKG changes and was felt this was likely not significant. Echo was obtained as patient has history of heart failure, and his exact EF was somewhat uncertain. It did confirm a systolic heart failure with an EF of 20, and severe global hypokinesis. It also showed pulmonary artery hypertension with pressure of 50. Again, he did not appear to be clinically volume overloaded on this visit. As patient's appeared to be improving rapidly on Rocephin he was transitioned to oral Omnicef and discharged home in stable condition. DISCHARGE VITAL SIGNS: Temperature 97.6 degrees, pulse 99, respirations 19, blood pressure 113/76, O2 saturation 97% on room air. DISCHARGE DIET: Cardiac. DISCHARGE MEDICATIONS: Aspirin 81 mg p.o. daily, Eliquis 5 mg p.o. b.i.d., [place] as previously prescribed, Norvasc 2.5 mg p.o. daily, spironolactone 25 mg p.o. daily, Breo Ellipta inhaler daily, Colace as previously prescribed, Flomax 0.4 mg p.o. daily, Lasix 40 mg p.o. daily. Digoxin 125 mcg p.o. daily. Omnicef 300 mg p.o. b.i.d. for 7 days. FOLLOWUP AND PLAN: The patient discharging home on oral course of Omnicef for pneumonia. Patient to follow up with PCP and head of academic technology. TIME SPENT: Greater than 30 minutes spent arranging discharge and counseling patient.
== END 2019-09-29 11:33 | disposition home health service (06) | DRG 871 ==
LOC: SUPCPDRO → ED 12:29 → EDIPHOLD 18:02 → SUATTDRO 18:02 → 2N 21:49 → 4N 09-28 10:54
PROVIDERS: ATTEND Internal Medicine

== ENCOUNTER 2019-11-06 09:09 | Inpatient (IN) ==
--- NOTE | 2019-11-06 10:36 | PROVIDER DOCUMENTATION ---
HPI-Psychological Disorder - General Chief Complaint: Suicide Attempt Stated Complaint: SUICIDE ATTEMPT Time Seen by Provider: 11/06/19 09:54 Source: patient Allergies/Adverse Reactions: Patient Allergies Allergy/AdvReac Type Severity Reaction Status Date / Time Iodinated Contrast Media Allergy Severe ANAPHYLAXIS Verified 11/06/19 10:15 [Iodinated Contrast- Oral and IV Dye] meloxicam [From Mobic] AdvReac Unknown Verified 11/06/19 10:15 Home Medications: Home Medication List Medication Instructions Recorded Confirmed Last Taken Type Aspirin [Aspir-Low] 81 mg PO DAILY 04/08/19 11/06/19 09/27/19 History Apixaban [Eliquis] 5 mg PO BID 08/24/19 11/06/19 09/27/19 History Docusate Sodium [Colace] 100 mg PO BID #40 cap 08/30/19 11/06/19 09/24/19 Rx Tamsulosin [Flomax] 0.4 mg PO DAILY #30 cap 08/30/19 11/06/19 09/27/19 Rx Amlodipine Besylate [Norvasc] 2.5 mg PO DAILY 09/24/19 11/06/19 09/27/19 History Fluticasone/Vilanterol [Breo 1 ea INHALATION ONCE #1 blst.w.dev 09/24/19 11/06/19 09/27/19 Rx Ellipta 200-25 Mcg INH] Hydrocodone/Acetaminophen [[place] 1 tab PO TID PRN 09/24/19 11/06/19 09/27/19 History 7.5-325 Tablet] CefDINIR [Omnicef] 300 mg PO BID #14 cap 09/29/19 11/06/19 Unknown Rx Digoxin 1 tab PO DAILY 11/06/19 11/06/19 Unknown History Furosemide 1 tab PO DAILY 11/06/19 11/06/19 Unknown History Spironolactone 1 tab PO DAILY 11/06/19 11/06/19 Unknown History - History of Present Illness-Psych Nature of Presenting Problem: Patient brought in via EMS for overdose as suicide attempt. Patient states "I'm just ready to give up." Notes that he took about 15 [place] tablets. EMS reports that family found patient on the floor unconscious and started CPR. Unsure if patient had true cardiac arrest. Patient given Narcan per EMS and recovered to his baseline mental status. Patient now notes that he has no continued wish to kill himself. Onset/Duration: reports: unsure Timing: reports: improving Severity: reports: severe Situational problems related to:: reports: other (health problems) Psychiatric Complaints: reports: depressed, ingestion, suicidal ideation Substance Use: reports: opiates Previous psych related hospitalizations?: No Patient arrived by:: EMS called by spouse/family Similar Symptoms Previously?: No Recently seen or treated by another doctor?: Yes - Suicidal Ideation Suicide Risk Assessment: male sex, age >65, depressed, organized plan, frightened friends-family Clinician's estimation of suicide risk?: high risk Suicidal Attempt Method: reports: Overdose Review of Systems - Adult - REVIEW OF SYSTEMS - ADULT Constitutional: reports: no symptoms reported Eyes: reports: no symptoms reported Ears, Nose, Mouth & Throat: reports: no symptoms reported Cardiovascular: reports: no symptoms reported Respiratory: reports: no symptoms reported Gastrointestinal: reports: no symptoms reported Genitourinary: reports: no symptoms reported Musculoskeletal: reports: no symptoms reported Integumentary: reports: no symptoms reported Neurological: reports: no symptoms reported Psychiatric: reports: see HPI, alcohol/drug dependence, depression, suicidal thoughts Endocrine: reports: no symptoms reported Hematologic/Lymphatic: reports: no symptoms reported Allergic/Immunologic: reports: no symptoms reported All Other Systems: Reviewed and Negative Past History - Adult - PAST MEDICAL HISTORY-ADULT Review of Records: reports: Old Records Reviewed, Nursing Assessment Review, Med ications Reviewed, Social history reviewed & non-contributory. Major Childhood Illnesses: reports: denies history Cardiovascular: reports: HTN Respiratory: reports: COPD Gastrointestinal: reports: denies history Obstetrical/Gynecological: reports: denies history Genitourinary: reports: denies history Musculoskeletal: reports: denies history, chronic pain Neurological: reports: denies history Psychiatric: reports: anxiety, depression Endocrine/Immune: reports: denies history Other Conditions: reports: denies history - PRIOR SURGERIES/PROCEDURES Surgical/Procedure History: reports: cardiac stent - IMMUNIZATION STATUS Childhood Immunizations: See Nurse Assessment Flu Vaccine: See Nurse Assessment - FAMILY HISTORY Family History: reviewed, not pertinent Physical Exam-Psych Focus - Physical Exam-Psych Initial Vital Signs Reviewed: Yes Appearance: no apparent distress Neurological: depressed affect Behavior/Eye Contact/Speech: cooperative, good eye contact, normal speech Thoughts/Hallucinations: normal thought pattern HENMT: normocephalic/atraumatic, moist mucous membranes, normal ENT inspection Neck: non-tender, supple Respiratory: chest non-tender, lungs clear, normal breath sounds Cardiovascular: normal peripheral pulses, regular rate, rhythm, no edema, no gallop, no JVD, no murmur Abdominal Exam: normal bowel sounds, non tender, soft, no organomegaly, no pulsatile mass Lymphatic: no adenopathy Back Exam: normal inspection Extremity: normal inspection Integumentary: warm/dry Progress - PLAN OF CARE/RESULTS Progress/Plan/Lab Results: Vital Signs - 8 hr 11/06/19 09:20 11/06/19 09:23 11/06/19 11:48 Temperature 97.7 F Pulse Rate 87 90 81 Respiratory Rate 20 23 15 Blood Pressure 119/85 119/85 100/74 O2 Sat by Pulse Oximetry 99 96 96 11/06/19 12:01 11/06/19 12:30 11/06/19 13:00 Temperature Pulse Rate 90 80 79 Respiratory Rate 19 15 15 Blood Pressure 99/76 104/82 118/76 O2 Sat by Pulse Oximetry 95 94 L 94 L 11/06/19 14:00 11/06/19 14:20 Temperature 98.0 F Pulse Rate 84 82 Respiratory Rate 15 17 Blood Pressure 99/73 99/73 O2 Sat by Pulse Oximetry 95 94 L Laboratory Results - last 24 hr 11/06/19 11/06/19 11/06/19 09:26 09:35 09:35 WBC RBC Hgb Hct MCV MCH MCHC RDW Std Deviation Plt Count MPV Immature Gran % (Auto) Neut % (Auto) Lymph % (Auto) [place] % (Auto) Eos % (Auto) Baso % (Auto) Immature Gran # (Auto) Neut # (Auto) Lymph # (Auto) [place] # (Auto) Eos # (Auto) Baso # (Auto) Sodium 126 L Potassium 5.8 H Chloride 83 L Carbon Dioxide 29 Anion Gap 12 BUN 59 H Creatinine 1.3 H Estimated GFR/1.73 m2 54 BUN/Creatinine Ratio 45 Glucose 99 POC Glucose 94 Calculated Osmolality 255 Calcium 8.6 L Total Bilirubin 1.58 H AST 798 H ALT 1213 H Alkaline Phosphatase 111 Total Protein 5.9 L Albumin 3.9 Globulin 2.0 Albumin/Globulin Ratio 2.0 Vitamin B12 > 2000 H TSH 3.21 Free T4 1.31 Acetaminophen 57.6 H Plasma/Serum Ethyl Alc 11/06/19 11/06/19 09:35 09:35 WBC 10.05 RBC 4.57 L Hgb 12.4 L Hct 39.8 L MCV 87.1 MCH 27.1 MCHC 31.2 L RDW Std Deviation 14.2 Plt Count 201 MPV 10.3 Immature Gran % (Auto) 0.2 Neut % (Auto) 76.8 H Lymph % (Auto) 9.1 L [place] % (Auto) 13.5 H Eos % (Auto) 0.2 Baso % (Auto) 0.2 Immature Gran # (Auto) 0.02 Neut # (Auto) 7.72 H Lymph # (Auto) 0.91 L [place] # (Auto) 1.36 H Eos # (Auto) 0.02 Baso # (Auto) 0.02 Sodium Potassium Chloride Carbon Dioxide Anion Gap BUN Creatinine Estimated GFR/1.73 m2 BUN/Creatinine Ratio Glucose POC Glucose Calculated Osmolality Calcium Total Bilirubin AST ALT Alkaline Phosphatase Total Protein Albumin Globulin Albumin/Globulin Ratio Vitamin B12 TSH Free T4 Acetaminophen Plasma/Serum Ethyl Alc Orders Category Date Time Status ALCOHOL BLOOD Stat Lab 11/06/19 09:35 Completed CBC WITH ELECTRONIC DIFF [HEME] Stat Lab 11/06/19 09:35 Completed COMPREHENSIVE METABOLIC PANEL [CHEM] Stat Lab 11/06/19 09:35 Completed FREE T4 Stat Lab 11/06/19 09:35 Completed TSH Stat Lab 11/06/19 09:35 Completed Tylenol [ACETAMINOPHEN] [TDM] Stat Lab 11/06/19 09:35 Completed Tylenol [ACETAMINOPHEN] [TDM] Stat Lab 11/06/19 14:28 Uncollected URINALYSIS W/POSS RFLX CULT [URINALYSIS] Stat Lab 11/06/19 10:26 Uncollected URINE DRUG SCREEN Stat Lab 11/06/19 10:26 Uncollected VITAMIN B12 Stat Lab 11/06/19 09:35 Completed EKG [EKG] Stat Ther 11/06/19 09:20 Ordered Result Diagrams: 11/06/19 09:35 11/06/19 09:35 Departure - Departure Date of Disposition Decision: 11/06/19 Time of Disposition Decision: 15:05 DIAGNOSIS: Drug overdose, intentional Qualifiers: Encounter type: initial encounter Qualified Code(s): T50.902A - Poisoning by unspecified drugs, medicaments and biological substances, intentional self-harm, initial encounter Suicidal overdose Qualifiers: Encounter type: initial encounter Qualified Code(s): T50.902A - Poisoning by unspecified drugs, medicaments and biological substances, intentional self-harm, initial encounter Tylenol toxicity Qualifiers: Encounter type: initial encounter Injury intent: intentional self-harm Qualified Code(s): T39.1X2A - Poisoning by 4-Aminophenol derivatives, intentional self-harm, initial encounter Disposition: ADMITTED INPATIENT 09 Certified Medical Emergency: Emergent Condition: Stable Referrals and Follow-Ups: Kenney Eaton MD [Primary Care Provider] - - Critical Care Note This patient required my direct & personal management of CC.: Yes Attestation - Physician/ KEYUR Attestation Patient care was provided by Advanced Practice Provider:: No The physician spent face to face time with patient:: Yes Advanced Practice Provider documentation review:: Supervising physician onsite and consulted in the evaluation and care of this patient. The physician did have a face to face encounter with the patient.
[2019-11-06 10:54] LABS: BASO# 0.02 X1000 (0.0-0.2); BASO% 0.2 % (0.0-0.8); EOS# 0.02 X1000 (0.0-0.7); EOS% 0.2 % (0.0-10.0); HEMATOCRIT 39.8 % (42.0-52.0); HEMOGLOBIN 12.4 g/dL (14.0-18.0); IMM GRAN# 0.02 X1000 (0.0-0.04); IMM GRAN% 0.2 % (0.0-0.5); LYMPH# 0.91 X1000 (1.2-3.4); LYMPH% 9.1 % (20.5-51.1); MCH 27.1 PG (27-31); MCHC 31.2 g/dL (33-37); MCV 87.1 FL (81-99); MONO# 1.36 X1000 (0.11-0.59); MONO% 13.5 % (1.7-9.3); MPV 10.3 FL (7.4-10.4); NEUT# 7.72 X1000 (1.4-6.5); NEUT% 76.8 % (42.2-75.2); PLT 201 X1000 (130-400); RBC 4.57 XMIL (4.7-6.1); RDW 14.2 % (11.5-14.5); WBC 10.05 X1000 (4.8-10.8)
[2019-11-06 11:56] LABS: POTASSIUM 5.8 mmol/L (3.5-5.1)
[2019-11-06 14:02] LABS: ACETAMINOPHEN 57.6 ug/mL (10-30); ALBUMIN 3.9 g/dL (3.5-5.0); CALCIUM 8.6 mg/dL (8.8-10.2); CREATININE 1.3 mg/dL (0.7-1.2); TOTAL BILIRUBIN 1.58 mg/dL (0.20-1.00); TOTAL PROTEIN 5.9 g/dL (6.3-8.3)
[2019-11-06 14:14] LABS: FREE T4 1.31 ng/dL (0.93-1.70); TSH 3.21 uIUmL (0.27-4.20)
[2019-11-06 15:50] LABS: URINE SOURCE CLEAN CATCH
[2019-11-06 15:53] LABS: BILIRUBIN URINE NEGATIVE (NEGATIVE); BLOOD URINE NEGATIVE (NEGATIVE); COLOR YELLOW; GLUCOSE URINE NEGATIVE (NEGATIVE); KETONE URINE NEGATIVE (NEGATIVE); LEUKOCYTES URINE NEGATIVE (NEGATIVE); NITRITE URINE NEGATIVE (NEGATIVE); PH URINE 5.5; PROTEIN URINE TRACE mg/dL (NEGATIVE); SP GRAVITY URINE 1.025; TURBIDITY URINE CLEAR (CLEAR); UR EPITHELIAL CELLS <10 /HPF (<10); URINE BACTERIA NEGATIVE /HPF; URINE RBC <10 /HPF (<10); URINE WBC <10 /HPF (<10); UROBILINOGEN URINE NORMAL (NORMAL)
[2019-11-06 16:12] LABS: UR AMPHETAMINES QUAL NONE DETECTED (NONE DETECT); UR BARBITUATES QUAL NONE DETECTED (NONE DETECT); UR BENZODIAZEPIN QUAL NONE DETECTED (NONE DETECT); UR CANNABINOIDS QUAL NONE DETECTED (NONE DETECT); UR COCAINE QUAL NONE DETECTED (NONE DETECT); UR METHADONE QUAL NONE DETECTED (NONE DETECT); UR OPIATES QUAL PRESUMPTIVE POSITIVE (NONE DETECT); UR OXYCODONE QUAL NONE DETECTED (NONE DETECT); UR PCP QUAL NONE DETECTED (NONE DETECT)
--- NOTE | 2019-11-06 16:16 | HISTORY AND PHYSICAL ---
HISTORY OF PRESENT ILLNESS: Mr. Will is a 78-year-old white male patient of Dr. Kenney Eaton, who presented on 11/06/2019. He reports that it just got away from him, he ended up taking too much [place], he was hurting all over. He said he did not want to kill himself. He just was tired of hurting, and he was found by his stepson lethargic and altered mental status. No fever or chills. Denies any chest pain or palpitations. PAST MEDICAL HISTORY: 1. Congestive heart failure. Last echocardiogram showed ejection fraction 20% to 25%. He has had a heart catheterization and told he had normal coronaries, but apparently he has had stents placed, I think they were saying his stents were open, so no active angina or symptoms of angina. 2. Coronary artery disease status post stents. 3. COPD, chronic hypoxemia. He is on 3.5 L of nasal cannula at home. 4. Hypertension. 5. Peripheral vascular disease. 6. Cardiomyopathy, appears to be ischemic cardiomyopathy. 7. History of atrial fibrillation, chronic. 8. Benign prostatic hypertrophy. PAST SURGICAL HISTORY: 1. Circumcision. 2. Coronary stent placement. SOCIAL HISTORY: Previously smoked a pack a day. He now smokes 1 to 2 cigarettes a day. No alcohol or illicit drugs. FAMILY HISTORY: Notable for diabetes and heart disease in first-degree relatives. ALLERGIES: Allergic to iodinated contrast media. REVIEW OF SYSTEMS: General: No weight gain. He thinks he may have lost some weight. His appetite is not very good in the last couple months. HEENT: No change in visual or hearing acuity. Respiratory: Denies any shortness of breath, but he wears oxygen 3.5 L, no real change in that. No increased cough or pleuritic pain or productive sputum. Cardiovascular: No chest pain or tachy palpitation. History of coronary artery disease and history of atrial fibrillation. Abdomen: Soft, nondistended. He does have complaints of constipation. He takes something for at home. : Otherwise, no gross hematuria or dysuria. No trouble with urination. He has been told he has benign prostatic hypertrophy so he does have some nocturia. Musculoskeletal/Neurologic: No new focal deficits. Endocrinologic/Hematologic: No significant history. PHYSICAL EXAMINATION: VITAL SIGNS: In the emergency room, temperature 98.0 degrees, pulse 82, respirations 17, blood pressure 99/73. HEENT: Pupils are equal and round. LUNGS: Clear in all lung james. CARDIOVASCULAR EXAM: Regular rhythm and rate without murmur or S3. ABDOMEN: Soft, nondistended. SKIN: Warm and dry. EXTREMITIES: He has 1+ pitting edema from his ankles all the way to his knees. He has some chronic venous stasis dermatosis with eczema-type skin turgor. NECK: Supple. No adenopathy. CVP appears to be less than 6 cm. I did not appreciate any murmurs on cardiac exam. Weight is 185 pounds, height 5 feet 11 inches. LABORATORY: White blood cell count 10,050, hematocrit 39, platelet count 201,000. Sodium 126, potassium 5.8, chloride 83, BUN 59, creatinine 1.3, calcium is 8.6, total bilirubin 1.58, AST 798, ALT is 1213. His B12 was greater than 2000, albumin 3.9. TSH was 3.21, T4 was 1.31. Acetaminophen level was 57.6. No alcohol detected on plasma alcohol or serum ethanol level. HOME MEDICATIONS: He takes amlodipine 2.5 mg a day, Eliquis 5 mg p.o. b.i.d., aspirin 81 mg a day. He was on Omnicef 300 mg twice a day for 14 capsules, digoxin he takes 1 a day, Colace 100 mg p.o. b.i.d., fluticasone vilanterol, which the other name is Breo Ellipta, 200/25 one inhalation daily. Furosemide, I do not have the mg dose but he takes once a day, and hydrocodone he was scheduled to take 3 times a day as needed, he has been stating he has been taking more of those, estimated he took 15 today. Spironolactone 1 tablet I believe is 25 mg daily, and Flomax 0.4 mg daily. ASSESSMENT AND PLAN: 1. [place], Tylenol overdose. So we will watch his Tylenol levels. He does have elevation of his transaminases. I do not think I have indication for [place] at this point. 2. History of ischemic cardiomyopathy with ejection fraction 20% to 25%, so congestive heart failure with reduced ejection fraction. He looks dry clinically at this point, so we will give him a little bit of fluid. His renal function, creatinine is 1.3, so we will follow his electrolytes and magnesium. I think we probably also ought to follow his troponin and his CK. 3. History of atrial fibrillation, chronic. He is on Eliquis 5 mg b.i.d. and he takes digoxin once a day. I am assuming that is a 0.25 mg digoxin daily. 4. Chronic obstructive pulmonary disease, chronic smoker, chronic hypoxemia. He is on Breo Ellipta 200/25 one inhalation daily. He is on 3.5 L of nasal oxygen every day. 5. History of hypertension. He is on Norvasc 2.5 mg daily. He takes an aspirin 81 mg a day and he is on spironolactone I believe is 25 mg daily. 6. History of benign prostatic hypertrophy. He is on Flomax 0.4 mg daily. So we will put him in ICU and watch and follow his Tylenol levels, give him fluid carefully evaluating his volume status. Put him back on his Lasix when he is able, keep him on supplementary oxygen. cc: Fortino Trinh MD
[2019-11-06] MEDS ORDERED: ZOFRAN IV PRN (16:53)
[2019-11-06] MEDS ORDERED: HUMULIN R IV ONE (17:14)
[2019-11-06] MEDS ORDERED: D50W SYRINGE IV ONE (17:14)
[2019-11-06] MEDS ORDERED: SODIUM BICARBONATE 8.4% IV PUSH ONE (17:16)
[2019-11-06] MEDS ORDERED: ACETADOTE IV ONE ×3 (17:30→22:30)
[2019-11-06] MEDS ORDERED: D5W IV ONE ×3 (17:30→22:30)
[2019-11-06 17:55] LABS: CALCIUM 8.6 mg/dL (8.8-10.2); CREATININE 1.3 mg/dL (0.7-1.2); MAGNESIUM 2.3 mg/dL (1.5-2.7); POTASSIUM 5.3 mmol/L (3.5-5.1)
[2019-11-06] MEDS: NS 1,000 ML IV SCH (18:04)
--- NOTE | 2019-11-06 19:55 | EKG Report ---
Test Performed on : 11/06/2019 09:20:58 AM Test Reason : OVERDOSE Blood Pressure : / mmHG Vent. Rate : 107 BPM Atrial Rate : 156 BPM P-R Int : 000 ms QRS Dur : 106 ms QT Int : 322 ms P-R-T Axes : 000 063 123 degrees QTc Int : 429 ms Atrial fibrillation. with rapid ventricular response. with premature ventricular or aberrantly conduc raman complexes. Anterior infarct (cited on or before 27-SEP-2019) Abnormal ECG When compared with ECG of 27-SEP-2019 15:50, (Unconfirmed) No significant change was found Unconfirmed Result
[2019-11-06] MEDS: COLACE PO SCH (20:29)
[2019-11-06] MEDS: ELIQUIS PO SCH (20:29)
[2019-11-07] MEDS ORDERED: HALDOL IM ONE (00:46)
[2019-11-07] MEDS ORDERED: ATIVAN IV ONE (02:28)
[2019-11-07] MEDS ORDERED: CARDIZEM IV ONE (02:29)
[2019-11-07] MEDS ORDERED: MORPHINE IV ONE (02:29)
[2019-11-07 07:36] LABS: BASO# 0.03 X1000 (0.0-0.2); BASO% 0.3 % (0.0-0.8); EOS# 0.04 X1000 (0.0-0.7); EOS% 0.4 % (0.0-10.0); HEMATOCRIT 39.1 % (42.0-52.0); HEMOGLOBIN 12.2 g/dL (14.0-18.0); LYMPH# 1.08 X1000 (1.2-3.4); LYMPH% 11.1 % (20.5-51.1); MCH 27.5 PG (27-31); MCHC 31.2 g/dL (33-37); MCV 88.1 FL (81-99); MONO# 1.47 X1000 (0.11-0.59); MONO% 15.1 % (1.7-9.3); MPV 9.9 FL (7.4-10.4); NEUT# 7.11 X1000 (1.4-6.5); NEUT% 73.1 % (42.2-75.2); PLT 171 X1000 (130-400); RBC 4.44 XMIL (4.7-6.1); RDW 14.4 % (11.5-14.5); WBC 9.73 X1000 (4.8-10.8)
[2019-11-07 07:48] LABS: AGAP 10; BUN 41 mg/dL (8-22); CALCIUM 8.4 mg/dL (8.8-10.2); CHLORIDE 88 mmol/L (98-107); COSMO 273; CREATININE 0.9 mg/dL (0.7-1.2); ESTIMATED GFR > 60; GLUCOSE 108 mg/dL (70-104); POTASSIUM 4.6 mmol/L (3.5-5.1); SODIUM 131 mmol/L (136-145); TCO2 33 mmol/L (25-35)
--- NOTE | 2019-11-07 08:05 | PROGRESS NOTE ---
DATE: 11/07/2019 Mr. Will was admitted yesterday. He is a patient of Dr. Kenney Eaton. States that he had taken some [place] and he just kind of got away from him. They estimate he might have taken 15 [place] yesterday but apparently has a history of alcohol as well. His past history includes congestive heart failure which we suspect is ischemic cardiomyopathy, ejection fraction of 20 to 25 percent. He has underlying chronic obstructive pulmonary disease. He is on 3.5 L at home. History of hypertension, peripheral vascular disease, COPD, coronary artery disease, and history of chronic atrial fibrillation. He is a little more relaxed right now. Does not appear agitated. We had to give him some Ativan. OBJECTIVE: Temperature 97.8 degrees, pulse 80, respirations 20, blood pressure 125/77. Pupils are equal and round. Lungs with some scattered rhonchi anterolateral but appears to be breathing comfortably right now. Abdomen is soft. Skin is warm and dry. Urine output is 2600 mL. White blood cell count is 9730 hematocrit is 39, and platelet count is 171,000. Sodium 131, potassium 5.3, chloride 85, BUN 53, creatinine 1.3, blood sugar 110. Urinalysis was positive for opiates. Acetaminophen level was high I so we did start him on acetylcysteine. He is on Norvasc 2.5 mg a day, Eliquis 5 mg b.i.d., aspirin 81 mg a day, digoxin 125 mcg daily, Colace 100 mg p.o. b.i.d., fluticasone inhaler 1 puff a day, normal saline at 75 mL an hour, Flomax 0.4 mg a day, and we will continue to give him lorazepam as needed. Looking at his laboratory data today, white count 9730, hematocrit 39, platelet count 171,000. Sodium 131, potassium 5.3, chloride 85, BUN 53, creatinine 1.3. His cultures are pending. cc: Fortino Trinh MD
[2019-11-07] MEDS: ASPIRIN EC PO SCH (08:14)
[2019-11-07] MEDS: LANOXIN PO SCH (08:14)
[2019-11-07] MEDS: COLACE PO SCH ×2 (08:14→19:59)
[2019-11-07] MEDS: FLOMAX PO SCH (08:14)
[2019-11-07] MEDS: ELIQUIS PO SCH ×2 (08:14→20:00)
[2019-11-07] MEDS: NORVASC PO SCH (08:14)
[2019-11-07] MEDS: ATIVAN IV PRN ×3 (08:15→14:23)
[2019-11-07] MEDS: NS 1,000 ML IV SCH ×2 (08:22→19:49)
[2019-11-07] MEDS: BREO ELLIPTA 200/25 MCG INH INH SCH (08:58)
[2019-11-07 11:17] LABS: INR 2.14; PROTIME 24.5 Seconds (11.0-16.0)
[2019-11-07 11:32] LABS: ACETAMINOPHEN 3.6 ug/mL (10-30)
[2019-11-07] MEDS ORDERED: D5W IV ONE (16:34)
[2019-11-07] MEDS ORDERED: ACETADOTE IV ONE (16:34)
[2019-11-08] MEDS: ATIVAN IV PRN (02:08)
[2019-11-08] MEDS: BREO ELLIPTA 200/25 MCG INH INH SCH (08:12)
[2019-11-08] MEDS: NS 1,000 ML IV SCH ×2 (08:21→23:20)
[2019-11-08 09:07] LABS: INR 1.86; PROTIME 21.9 Seconds (11.0-16.0)
[2019-11-08] MEDS: ASPIRIN EC PO SCH (09:15)
[2019-11-08] MEDS: NORVASC PO SCH (09:16)
[2019-11-08] MEDS: FLOMAX PO SCH (09:16)
[2019-11-08] MEDS: ELIQUIS PO SCH ×2 (09:16→20:25)
[2019-11-08] MEDS: LANOXIN PO SCH (09:16)
[2019-11-08] MEDS: COLACE PO SCH ×2 (09:16→20:25)
[2019-11-08 10:02] LABS: GOT 199 U/L (10-34); GPT 606 U/L (10-44)
[2019-11-08] MEDS ORDERED: LANOXIN IV ONE ×2 (10:07→17:00)
[2019-11-08 10:24] LABS: AGAP 14; ALB/GLOB RATIO 1.1; ALBUMIN 2.9 g/dL (3.5-5.0); ALKALINE PHOSPHATASE 86 U/L (32-122); BUN 21 mg/dL (8-22); CALCIUM 8.4 mg/dL (8.8-10.2); CHLORIDE 90 mmol/L (98-107); COSMO 268; CREATININE 0.6 mg/dL (0.7-1.2); ESTIMATED GFR > 60; GLUCOSE 116 mg/dL (70-104); GOT 201 U/L (10-34); GPT 603 U/L (10-44); MAGNESIUM 2.1 mg/dL (1.5-2.7); POTASSIUM 4.1 mmol/L (3.5-5.1); SODIUM 132 mmol/L (136-145); TCO2 28 mmol/L (25-35); TOTAL BILIRUBIN 1.22 mg/dL (0.20-1.00); TOTAL PROTEIN 5.6 g/dL (6.3-8.3)
--- NOTE | 2019-11-08 10:30 | PROGRESS NOTE ---
DATE: 11/08/2019 SUBJECTIVE: Mr. Will has been quite sedated after given his last dose of Ativan. Heart rate has gone up a little bit. He is not able to take his p.o. medicines because he is pretty lethargic right now. PHYSICAL EXAMINATION: Temperature 97.0 degrees, pulse 99, respirations 13, blood pressure 109/91. Pupils are equal and round. Lungs are clear in all lung james. Cardiovascular Examination: Regular rhythm and rate without murmur or S3. Abdomen is soft. Skin is warm and dry. Urine output is 6138-5477 mL. ASSESSMENT/PLAN: He had taken some [place] and his report is that he just forgotten how many he had taken. He estimated he took about 15 of them. I am not sure if he took any other substance. He did have Tylenol elevation. Acetaminophen level was high so we have been giving him some acetylcysteine. He is on Eliquis 5 mg twice a day, aspirin 81 mg a day, and I will start digoxin at 0.25 mg intravenous twice today and then daily. He is on Colace 100 mg twice a day, normal saline at 75 mL an hour, and got another acetylcysteine dose of 8400 mg yesterday at 4:34 p.m. I am not sure if there is any alcohol withdrawal going on but will use Ativan as needed. We do not have any new labs. We will check some. He did have elevation of his AST and ALT and we will recheck those. REVIEW OF HIS ORDERS: I do not see any changes. cc: Fortino Trinh MD
[2019-11-08] MEDS: ACETADOTE IV SCH (11:56)
[2019-11-08] MEDS: D5W IV SCH (11:56)
[2019-11-09 02:49] LABS: INR 2.11; PROTIME 24.2 Seconds (11.0-16.0)
[2019-11-09 03:05] LABS: AGAP 7; BUN 14 mg/dL (8-22); CALCIUM 8.6 mg/dL (8.8-10.2); CHLORIDE 91 mmol/L (98-107); COSMO 271; CREATININE 0.6 mg/dL (0.7-1.2); ESTIMATED GFR > 60; GLUCOSE 99 mg/dL (70-104); MAGNESIUM 1.9 mg/dL (1.5-2.7); POTASSIUM 3.9 mmol/L (3.5-5.1); SODIUM 135 mmol/L (136-145); TCO2 37 mmol/L (25-35)
[2019-11-09 03:06] LABS: ACETAMINOPHEN < 1.2 ug/mL (10-30); GOT 143 U/L (10-34); GPT 500 U/L (10-44)
[2019-11-09] MEDS: D5W IV SCH ×2 (04:41→20:01)
[2019-11-09] MEDS: ACETADOTE IV SCH ×2 (04:41→20:01)
[2019-11-09] MEDS: BREO ELLIPTA 200/25 MCG INH INH SCH (09:00)
[2019-11-09] MEDS ORDERED: LANOXIN IV SCH (09:00)
--- NOTE | 2019-11-09 10:53 | EKG Report ---
Test Performed on : 11/09/2019 03:02:12 AM Test Reason : ICU. No order in [place] Blood Pressure : / mmHG Vent. Rate : 080 BPM Atrial Rate : 097 BPM P-R Int : 000 ms QRS Dur : 110 ms QT Int : 356 ms P-R-T Axes : 000 087 241 degrees QTc Int : 410 ms Atrial fibrillation. with occasional ventricular-paced complexes and with premature ventricular or ab errantly conducted complexes. Nonspecific ST and T wave abnormality Abnormal ECG When compared with ECG of 06-NOV-2019 09:20, (Unconfirmed) Electronic ventricular pacemaker has replaced Atrial fibrillation. Confirmed by Gayathri INFANTE, Fortino Mtz ([id number]) on 11/10/2019 9:24:25 AM
[2019-11-09] MEDS: COLACE PO SCH ×2 (11:19→20:01)
[2019-11-09] MEDS: ASPIRIN EC PO SCH (11:20)
[2019-11-09] MEDS: FLOMAX PO SCH (11:20)
[2019-11-09] MEDS: ELIQUIS PO SCH ×2 (11:20→20:01)
[2019-11-09] MEDS: NORVASC PO SCH (11:20)
[2019-11-09] MEDS: NS 1,000 ML IV SCH (12:00)
--- NOTE | 2019-11-09 12:35 | GASTROENTEROLOGY CONSULTATION ---
DATE: 11/09/2019 REASON FOR CONSULTATION: Abnormal LFTs/acetaminophen overdose. HISTORY OF PRESENT ILLNESS: Mr. Will is a 78-year-old, male who has been here in the hospital since 11/06/2019. The patient is drowsy and sleepy, difficult to get much of the history. The patient had mentioned that he had severe pain and he took 10 to 15 [place]. He also mentioned that he did not want to kill himself, but was in pain and wanted to get rid of his pain. As per the ER documentation, patient was found unconscious on the floor at home and family members who performed CPR. He was given Narcan per EMS with improvement of LOC. PAST MEDICAL HISTORY: Congestive heart failure, coronary artery disease status post stent placement, COPD, hypertension, peripheral vascular disease, cardiomyopathy, history of atrial fibrillation, and benign prostatic hypertrophy. PAST SURGICAL HISTORY: Circumcision and stent placement. SOCIAL HISTORY: Smokes 1 to 2 cigarettes per day. Has denied any alcohol or illicit drug use. FAMILY HISTORY: Significant for heart disease and diabetes. ALLERGIES: Iodinated contrast media and meloxicam. HOME MEDICATIONS: Aspirin 81 mg p.o. daily, Eliquis 5 mg p.o. twice a day, Colace 100 mg p.o. twice a day. Flomax 0.4 mg daily, [place] 7.5/325 mg 1 tablet 3 times a day as needed, Norvasc 2.5 mg daily, Breo 1 inhalation once, Omnicef 300 mg p.o. twice a day for 14 days, furosemide 40 mg p.o. 1 tablet, Aldactone 25 mg 1 tablet daily, digoxin 125 mcg 1 tablet daily. REVIEW OF SYSTEMS: The patient is drowsy, sleepy, unable to gather much information. The patient has edema in the lower extremities. The right extremity he has got +2 pitting edema, the left extremity is +3. PHYSICAL EXAMINATION: Vital Signs: Temperature 98.2 degrees, pulse 72, respirations 14, blood pressure 118/81, oxygen saturation 99% on Ventimask. The patient's weight is 211 pounds, BMI is 29.5 kg/m2. General: He is drowsy, sleepy. HEENT: Pale conjunctivae. Mild icterus. PERRL. Neck: Supple. Lungs: Wheezing heard in the anterior james. Cardiovascular: Regular rate and rhythm. Abdomen: Obese, soft, nontender. Active bowel sounds heard in all 4 quadrants. Extremities: No clubbing, no cyanosis. +3 pitting edema in the left leg, +2 pitting edema in the right leg. Neurologic: The patient is sleepy and drowsy, AO x 1 LABORATORY DATA: WBCs are 9.73, RBC 4.44, her hemoglobin 12.2, hematocrit 39.1, platelet count is 171,000. PT 24.1, INR 2.11. Sodium 135, potassium 3.9, chloride 91, carbon dioxide 37, anion gap 7, BUN 14, creatinine is 0.6, glucose 99, calcium 8.6. Magnesium 1.9. Total bilirubin 1.22, AST 143, ALT 500, alkaline phos 86, albumin is 2.9. Urinalysis: Toxicology report has shown acetaminophen level of less than 1.2. On admission, it was 26.6. IMPRESSION: - Tylenol overdose - Abnormal LFTs - Coagulopathy - COPD - Hypoxic respiratory distress - CAD - Systolic CHF PLAN: Mr. Will is a 78-year-old male with a history of coronary artery disease and congestive heart failure. GI has been consulted for his transaminitis and Tylenol overdose. Currently, the patient's liver enzymes are elevated 2/2 to tylenol overdose vs ischemic liver injury. The patient is currently on IV fluids normal saline at 75 mL/hour. He is receiving antidote Acetadote at 65 mL per hour for his acetaminophen overdose. We recommend patient getting a Psych evaluation. We will provide supportive care to the patient and follow the plan of care per PCP. This plan was discussed with Dr. Carmichael. Thank you for your consult. Please call us for any further questions or concerns. Dictated by JAZMIN Byers for Kenney Carmichael MD Physician Attestation I have seen and examined the patient. I have discussed and reviewed the note by Vanda WU and agree with findings and plan as documented. In brief, Mr. Will is a 78 year old man with multiple medical problems who presented with accidental vs intentional acetaminophen overdose vs ischemic liver injury. Total cumulative acetaminophen dose (3.2 to 3.8 gms per report) His has some synthetic dysfunction. LFTs have been improving with NAC. Recommend discontinuing after 72-hrs and trending LFTs and INR daily. Monitor mental status. Recommend psych eval once medically stable. MTDD
[2019-11-09 15:59] LABS: INR 2.23; PROTIME 25.3 Seconds (11.0-16.0)
[2019-11-09 16:21] LABS: AGAP 6; ALB/GLOB RATIO 1.5; ALBUMIN 2.9 g/dL (3.5-5.0); ALKALINE PHOSPHATASE 71 U/L (32-122); BUN 10 mg/dL (8-22); CALCIUM 8.4 mg/dL (8.8-10.2); CHLORIDE 92 mmol/L (98-107); COSMO 269; CREATININE 0.5 mg/dL (0.7-1.2); ESTIMATED GFR > 60; GLUCOSE 122 mg/dL (70-104); GOT 104 U/L (10-34); GPT 385 U/L (10-44); POTASSIUM 3.7 mmol/L (3.5-5.1); SODIUM 134 mmol/L (136-145); TCO2 36 mmol/L (25-35); TOTAL BILIRUBIN 1.28 mg/dL (0.20-1.00); TOTAL PROTEIN 4.9 g/dL (6.3-8.3)
--- NOTE | 2019-11-09 18:27 | PROGRESS NOTE ---
DATE: 11/09/2019 SUBJECTIVE: The patient is resting comfortably in bed. He is somewhat lethargic. No acute events noted overnight. OBJECTIVE: Vital Signs: Temperature 97.9 degrees, blood pressure 111/74, heart rate 83, respirations 17, O2 saturation is 99% on 2 L nasal cannula. General: This is a chronically ill- appearing elderly male lying in bed, in no acute distress. Heart: S1, S2 normal. Regular rate and rhythm. Lungs: Equal air entry bilaterally. No wheezing. No rales. No rhonchi. Abdomen: Positive bowel sounds. Soft, nontender, nondistended. Extremities: There is 1+ edema bilaterally. Neurologic: The patient is lethargic. He is able to move all 4 extremities. LABS: Sodium 134, potassium 3.7, chloride 92, CO2 36, BUN 10, creatinine 0.5, glucose 122. INR 2.2. Magnesium 1.9. Total bilirubin 1.2, AST 104, ALT 385. Acetaminophen level less than 1.2. ASSESSMENT AND PLAN: 1. Unintentional acetaminophen overdose. The patient took several [place] tablets to control his chronic pain. He has received the Mucomyst drip and his acetaminophen levels have improved, as well as his transaminitis. We will continue to monitor closely. The patient is still coagulopathic. GI is following. 2. Coagulopathy. Likely secondary to the transaminitis from the acetaminophen overdose. We will continue to monitor closely for improvement. The patient is not actively bleeding. 4. Chronic atrial fibrillation. The patient is rate controlled. Continue on Eliquis. 5. Benign prostatic hypertrophy. Continue on Flomax. 6. Cardiomyopathy. Aware. We will monitor the patient's volume status closely. 7. Chronic obstructive pulmonary disease. Stable. Continue on Ellipta. 8. Deep vein thrombosis prophylaxis. Continue on Eliquis. cc: Shahrzad Paez MD [facility]amy
[2019-11-09] MEDS: ATIVAN IV PRN (21:58)
[2019-11-10] MEDS: NS 1,000 ML IV SCH (00:20)
[2019-11-10 04:58] LABS: BASO# 0.03 X1000 (0.0-0.2); BASO% 0.4 % (0.0-0.8); EOS# 0.12 X1000 (0.0-0.7); EOS% 1.7 % (0.0-10.0); HEMATOCRIT 39.2 % (42.0-52.0); HEMOGLOBIN 11.9 g/dL (14.0-18.0); IMM GRAN# 0.02 X1000 (0.0-0.04); IMM GRAN% 0.3 % (0.0-0.5); LYMPH# 0.68 X1000 (1.2-3.4); LYMPH% 9.9 % (20.5-51.1); MCH 26.8 PG (27-31); MCHC 30.4 g/dL (33-37); MCV 88.3 FL (81-99); MONO# 0.89 X1000 (0.11-0.59); MPV 9.7 FL (7.4-10.4); NEUT# 5.12 X1000 (1.4-6.5); NEUT% 74.7 % (42.2-75.2); PLT 179 X1000 (130-400); RBC 4.44 XMIL (4.7-6.1); RDW 14.1 % (11.5-14.5); WBC 6.86 X1000 (4.8-10.8)
[2019-11-10 05:13] LABS: AGAP 8; ALB/GLOB RATIO 1.1; ALBUMIN 2.8 g/dL (3.5-5.0); ALKALINE PHOSPHATASE 71 U/L (32-122); BUN 8 mg/dL (8-22); CALCIUM 8.4 mg/dL (8.8-10.2); CHLORIDE 93 mmol/L (98-107); COSMO 272; CREATININE 0.5 mg/dL (0.7-1.2); ESTIMATED GFR > 60; GLUCOSE 121 mg/dL (70-104); GOT 91 U/L (10-34); GPT 344 U/L (10-44); POTASSIUM 3.5 mmol/L (3.5-5.1); SODIUM 136 mmol/L (136-145); TCO2 35 mmol/L (25-35); TOTAL BILIRUBIN 1.29 mg/dL (0.20-1.00); TOTAL PROTEIN 5.3 g/dL (6.3-8.3)
[2019-11-10 05:18] LABS: INR 2.22; PROTIME 25.2 Seconds (11.0-16.0)
[2019-11-10] MEDS: BREO ELLIPTA 200/25 MCG INH INH SCH (06:04)
--- NOTE | 2019-11-10 06:47 | Diag Imaging Result Doc PS360 ---
FLAT/UPRIGHT ABD/1 VIEW CHEST - 11/10/2019 INDICATION: constipation/dyspnea TECHNIQUE: COMPARISON: 10/05/2019 FINDINGS: Stable left-sided pacemaker. Stable significant cardiomegaly. There is bibasilar airspace opacification right greater than left. This is compatible with any combination of atelectasis, infiltrates, or effusions. Lung volumes are lower. There is worsening pulmonary vascular congestion. There is a nonobstructive bowel gas pattern. No free air or abnormal calcifications. No significant constipation. IMPRESSION: Lower lung volumes. Worsening bibasilar opacifications in the lungs. No acute process in the abdomen. Electronically signed by Rivas Scott 11/10/2019 6:45 AM
[2019-11-10] MEDS ORDERED: LASIX IV ONE (07:00)
--- NOTE | 2019-11-10 08:11 | EKG Report ---
Test Performed on : 11/10/2019 07:29:21 AM Test Reason : afib Blood Pressure : / mmHG Vent. Rate : 117 BPM Atrial Rate : 070 BPM P-R Int : 000 ms QRS Dur : 104 ms QT Int : 326 ms P-R-T Axes : 000 077 245 degrees QTc Int : 454 ms Undetermined rhythm Anterior infarct (cited on or before 10-NOV-2019) Abnormal ECG When compared with ECG of 10-NOV-2019 07:28, (Unconfirmed) Current undetermined rhythm precludes rhythm comparison, needs review Confirmed by Gayathri INFANTE, Fortino Mtz ([id number]) on 11/10/2019 9:25:44 AM
[2019-11-10] MEDS ORDERED: LASIX PO SCH (09:00)
[2019-11-10] MEDS: LANOXIN PO SCH (10:04)
[2019-11-10] MEDS: ALDACTONE PO SCH (10:04)
[2019-11-10] MEDS: ASPIRIN EC PO SCH (10:04)
[2019-11-10] MEDS: ELIQUIS PO SCH ×2 (10:04→22:57)
[2019-11-10] MEDS: FLOMAX PO SCH (10:04)
[2019-11-10] MEDS: COLACE PO SCH ×2 (10:05→22:57)
[2019-11-10] MEDS: NORVASC PO SCH (10:05)
--- NOTE | 2019-11-10 10:53 | GASTROENTEROLOGY PROGRESS NOTE ---
DATE: 11/10/2019 SUBJECTIVE: Mr. Will is a 78-year-old, male, resting in bed. Nursing staff at bedside, 1 on 1 with the patient. The patient was drowsy and difficult to arouse, unable to assess the patient. OBJECTIVE: Vital Signs: Temperature 96.8 degrees, pulse 100, respirations 19, blood pressure 125/91, oxygen saturation 97% on 2 L nasal cannula. The patient's weight is 211 pounds. BMI is 29.5 kg/m2. General: He is drowsy and sleepy. HEENT: Pale conjunctivae. Mild icterus. PERRL. Neck: Supple. Lungs: Clear to auscultation. Cardiovascular: The patient is tachycardic. Abdomen: Soft, nontender, nondistended. Active bowel sounds heard in all 4 quadrants. Extremities: There is 2+ pitting edema in the lower extremities. Neurologic: The patient is drowsy and sleepy, unable to assess the patient. LABORATORY DATA: WBC is 6.86, RBC 4.44, hemoglobin 11.9, hematocrit is 39.2, platelet count is 179,000. PT is 25.2, INR is 2.22. Sodium 136, potassium 3.5, chloride 93, carbon dioxide 35, anion gap 8, BUN 8, creatinine is 0.5, glucose is 121, calcium 8.4. Total bilirubin 1.29, AST 91, ALT 344, alkaline phosphatase 71, ammonia 43, albumin is 28. IMAGING: Abdominal x-ray has shown lower lung volumes, worsening bibasilar opacifications in the lungs. No acute process in the abdomen. IMPRESSION AND PLAN: 1. Tylenol overdose 2. Abnormal LFT's 3. Coagulopathy 4. COPD 5. Hypoxic respiratory distress 6. CAD 7. CHF PLAN: Mr. Will is a 78-year-old, male with a history of CAD and CHF. GI has been following him for his Tylenol overdose and elevated liver enzymes. Currently, the patient's liver enzymes are trending downward. We will continue the patient with IV fluids. The patient may need a psychiatric evaluation once he is stable. We will provide supportive care to the patient, and follow the plan of care per PCP. This plan was discussed with Dr. Cramichael. Please call us for any further questions or concerns. Dictated by JAZMIN Byers for Kenney Carmichael MD SANDEE
[2019-11-10 10:57] LABS: HEPATITIS PROFILE ACUTE SEE COMMENTS
[2019-11-10] MEDS: D5W IV SCH (11:40)
[2019-11-10] MEDS: ACETADOTE IV SCH (11:40)
--- NOTE | 2019-11-10 14:05 | NEUROLOGY CONSULTATION ---
DATE: 11/10/2019 HISTORY OF PRESENT ILLNESS: Mr. Will is 78 years old, and he was admitted 11/06/2019 with lethargy following overdose of Rydal tablets. Acetaminophen level was 57.6 mcg/dL. Urine drug screen was positive only for opiates. He was later alert. There was never focal neurologic finding. Earlier progress note reports he received a dose of lorazepam a few days ago and appeared sedated following that. Neurology has been consulted because of his encephalopathy. There is reported past history of hypertension, ischemic heart disease, heart failure, peripheral vascular disease, atrial fibrillation, COPD, BPH. He smokes cigarettes. We have not had brain imaging this admission. Lab showed elevated acetaminophen level on admission as above and that has resolved. Sodium was 131 and then 134. BUN has dropped from 53 to 8. Blood sugars have been steady 100s-120s. Liver enzymes were initially elevated and are improving. Ammonia level was normal at 43 today. Hepatitis profile was all negative. He reports no prior serious head injury, diagnosed stroke, seizure, other episodes of altered awareness, other neurologic event. He denies illicit drug use, prior episodes of drug intoxication, ethanol abuse. He has been afebrile here. Heart rate has been 80s-120 in the last 24 hours. Systolic blood pressures have ranged 100s-150s in the last 24 hours. On exam, Mr. Will is awake, alert, and briefly attentive. Without vigorous involvement in conversation, he seems to drift to sleep or at least to become inattentive. Speech is a little bit dysarthric, but easily understood. Language function is intact on brief bedside testing. Remote memory is good. Recent memory is fair. He was oriented to the correct name of the hospital, president, recent news and month. He reported correctly the incident leading to this admission. Head is unremarkable. There is no evidence of skull defect. He has some rigidity in the neck consistent with degenerative cervical spine changes, not typical of meningismus. He has full visual james tested briefly by confrontational finger counting. Extraocular movements are full. Facial motility seems a little bit diminished, but symmetric. Facial sensation is intact. Gag is intact. Tongue is midline. He can hear. Shoulder shrug is equal. His effort on motor testing in the limbs is limited and inconsistent, but with repeated testing and coaxing, he is able to show good strength in the arms and at least fair strength bilaterally in the legs. Limb tone is symmetric. Plantar response is silent bilaterally. Reflexes are absent at the ankles and 1+ symmetrically at the wrists. He was not attentive to usual sensory testing, but he did withdraw with pinprick over each foot. He was not attentive to proprioception testing at the great toe. I did not test his gait. Hands and feet are warm. IMPRESSION: 1. Lethargy. This appears to be nonfocal with no evidence of increased intracranial pressure, central nervous system infection, focal or lateralized brain lesion. Hospital chart shows no medication dose that would likely be sedating since the single dose of lorazepam 2 mg given about 15 hours prior to my visit. There is 11/08/2019 progress note comment that he appeared sedated after dose of Ativan. I do not have the expertise required to be certain that I know all medication doses. I do not have any urgent suggestion from Neurology standpoint. If he does not recover, we might consider brain imaging and electroencephalogram. 2. He has some stiffness in the neck, which is typical of degenerative problems. He had cervical magnetic resonance imaging in 2013, which showed extensive degenerative changes. I do not think we need to repeat the magnetic resonance imaging now. 3. He has clinical evidence of peripheral neuropathy, which is difficult to be certain about clinically based on his inconsistent attention. This would be unrelated to the lethargy, and does not require urgent attention. Thanks for asking Neurology to see Mr. Will. cc: MD SANDEE Nye III
--- NOTE | 2019-11-10 14:18 | Diag Imaging Result Doc PS360 ---
EXAM: CT HEAD W/O CONTRAST 11/10/2019 HISTORY: encephalopathy TECHNIQUE: This exam was performed using automated exposure control, adjustment of mA or kV according to patient size, and/or use of iterative reconstruction technique. COMMENT: There are calcifications in the vertebral and internal carotid arteries bilaterally. There is no evidence of mass effect, bleed, or abnormal extra-axial fluid collection. The visualized paranasal sinuses are clear. The calvarium is intact. IMPRESSION: No evidence of acute intracranial disease. Electronically signed by Eric Higgins 11/10/2019 2:15 PM
--- NOTE | 2019-11-10 14:38 | PROGRESS NOTE ---
DATE: 11/10/2019 SUBJECTIVE: The patient is somewhat lethargic this morning. He will wake up and answer questions but then falls asleep pretty quickly. No acute events noted overnight. OBJECTIVE: Vital Signs: Temperature 98 degrees, blood pressure 116/82, heart rate 95, respirations 20, and O2 saturation 95% on 2 L nasal cannula. General: This is a morbidly obese male lying in bed in no acute distress. Heart: S1, S2 normal. Regular rate and rhythm. Lungs: Equal air entry bilaterally. No wheezing. No rales. Abdomen: Positive bowel sounds. Soft, nontender, and nondistended. Extremities: No edema. No cyanosis. Neurologic: The patient is somewhat sleepy, but will answer questions. He is oriented to self. He is able to move all 4 extremities. LABORATORY: White blood cell count 6.8, hemoglobin 11, hematocrit 39, and platelets 179,000. INR 2.2. Sodium 136, potassium 3.5, chloride 93, CO2 35, BUN 8, creatinine 0.5, glucose 121, AST 91, ALT 344, total bilirubin 1.2, alkaline phosphatase 71, and albumin 2.8. ASSESSMENT AND PLAN: 1. Acetaminophen toxicity with transaminitis secondary to drug overdose. The patient's liver function is improving. We will continue to monitor closely. 2. Metabolic encephalopathy. We will consult with the neurologist for further recommendations. We will order a head CT. 3. Coagulopathy. Continue to monitor closely for improvement. The patient is not actively bleeding. 4. Chronic atrial fibrillation. The patient is rate controlled. Continue on Eliquis. 5. Benign prostatic hypertrophy. Continue on Flomax. 6. Chronic obstructive pulmonary disease. Stable. Continue with bronchodilator therapy. 7. Deep vein thrombosis prophylaxis. Continue on Eliquis. cc: Shahrzad Paez MD
[2019-11-11 08:12] LABS: BASO# 0.03 X1000 (0.0-0.2); BASO% 0.5 % (0.0-0.8); EOS# 0.12 X1000 (0.0-0.7); EOS% 1.8 % (0.0-10.0); HEMATOCRIT 41.7 % (42.0-52.0); HEMOGLOBIN 12.5 g/dL (14.0-18.0); LYMPH# 0.78 X1000 (1.2-3.4); LYMPH% 11.8 % (20.5-51.1); MCH 26.8 PG (27-31); MCV 89.5 FL (81-99); MONO# 1.02 X1000 (0.11-0.59); MONO% 15.4 % (1.7-9.3); MPV 9.2 FL (7.4-10.4); NEUT# 4.68 X1000 (1.4-6.5); NEUT% 70.5 % (42.2-75.2); PLT 192 X1000 (130-400); RBC 4.66 XMIL (4.7-6.1); RDW 14.3 % (11.5-14.5); WBC 6.63 X1000 (4.8-10.8)
[2019-11-11 08:40] LABS: INR 2.24; PROTIME 25.4 Seconds (11.0-16.0)
[2019-11-11 08:49] LABS: AGAP 12; ALB/GLOB RATIO 1.2; ALBUMIN 2.8 g/dL (3.5-5.0); ALKALINE PHOSPHATASE 71 U/L (32-122); BUN 8 mg/dL (8-22); CALCIUM 8.9 mg/dL (8.8-10.2); CHLORIDE 94 mmol/L (98-107); COSMO 276; CREATININE 0.5 mg/dL (0.7-1.2); ESTIMATED GFR > 60; GLUCOSE 107 mg/dL (70-104); GOT 67 U/L (10-34); GPT 278 U/L (10-44); POTASSIUM 3.8 mmol/L (3.5-5.1); SODIUM 139 mmol/L (136-145); TCO2 33 mmol/L (25-35); TOTAL BILIRUBIN 1.28 mg/dL (0.20-1.00); TOTAL PROTEIN 5.2 g/dL (6.3-8.3)
[2019-11-11] MEDS: ASPIRIN EC PO SCH (09:57)
[2019-11-11] MEDS: NORVASC PO SCH (09:57)
[2019-11-11] MEDS: ELIQUIS PO SCH ×2 (09:57→22:20)
[2019-11-11] MEDS: COLACE PO SCH ×2 (09:57→22:20)
[2019-11-11] MEDS: LANOXIN PO SCH (09:58)
[2019-11-11] MEDS: FLOMAX PO SCH (09:58)
[2019-11-11] MEDS: ALDACTONE PO SCH (09:58)
[2019-11-11] MEDS: LOPRESSOR PO SCH ×2 (11:09→22:20)
[2019-11-11] MEDS: PEPCID IV SCH ×2 (11:09→22:21)
[2019-11-11] MEDS: SODIUM CHLORIDE 0.9% INJ SCH (11:09)
--- NOTE | 2019-11-11 11:11 | EKG Report ---
Test Performed on : 11/11/2019 10:58:29 AM Test Reason : 8 beat vtach Blood Pressure : / mmHG Vent. Rate : 093 BPM Atrial Rate : 107 BPM P-R Int : 000 ms QRS Dur : 104 ms QT Int : 344 ms P-R-T Axes : 000 091 261 degrees QTc Int : 427 ms Undetermined rhythm Rightward axis Anterior infarct (cited on or before 10-NOV-2019) Abnormal ECG When compared with ECG of 10-NOV-2019 07:29, Current undetermined rhythm precludes rhythm comparison, needs review Confirmed by Gayathri INFANTE, Fortino Mtz ([id number]) on 11/12/2019 9:24:53 AM
--- NOTE | 2019-11-11 13:18 | NEUROLOGY PROGRESS NOTE ---
DATE: 11/11/2019 SUBJECTIVE: No deterioration reported over the last 24 hours. OBJECTIVE: Mr. Will is awake, much brighter and more consistently attentive today than yesterday. He sustained conversation with me. He is oriented to the correct name of the hospital, the President, the day of the week, recent news and his current situation. Speech is much less dysarthric today. I do not have any new thoughts or new suggestions from Neurology standpoint. I hope he will continue to improve. If he does not recover to his baseline level of alertness and mentation, we can consider further evaluation electively. Thanks for asking Neurology to see Mr. Will. cc: MD SANDEE Nye III
--- NOTE | 2019-11-11 14:36 | GASTROENTEROLOGY PROGRESS NOTE ---
DATE: 11/11/2019 Mr. Will is a 78-year-old, male resting in bed. Nursing staff at the bedside 1 on 1 with the patient. The patient was able to tell his name, date of and where he is. The patient also mentioned on assessment that his abdomen was hurting in the mid quadrant. OBJECTIVE: Vital Signs: Temperature 97.3 degrees, pulse 59, respirations 20, blood pressure 130/79, oxygen saturation 98% on 3 L nasal cannula. The patient is 219 pounds. BMI of 30.6 kg/m2. General: He is drowsy, but he is alert and oriented x3. HEENT: Pale conjunctivae. Mild icterus. PERRL. Neck: Supple. Lungs: Clear to auscultation. Cardiovascular: Regular rate and rhythm. Abdomen: Obese, soft, tender in the mid quadrant. Active bowel sounds heard in all 4 quadrants. Extremities: No clubbing, no cyanosis, 2+ pitting edema in the lower extremities. Neurologic: Alert and oriented x3. LABS: WBCs 6.63, RBCs 4.66, hemoglobin is 12.5, hematocrit is 14.7, platelet count is 192,000. PT is 25.4, INR is 2.24. Sodium 139, potassium 3.8, chloride 99, carbon dioxide 23, anion gap 12, BUN 8, creatinine 0.5, glucose 107, calcium 8.9. Total bilirubin is 1.28, magnesium is 1.9. AST 67, ALT is 278, alkaline phosphatase is 71. The patient's hepatitis profile has been nonreactive. IMAGING: His head CT yesterday showed no evidence of acute intracranial disease. Abdomen ultrasound showed Cholelithiasis and possible acute cholecystitis. Hepatic steatosis. IMPRESSION AND PLAN: 1. Tylenol overdose 2. Elevated LFT's 3. COPD 4. Coagulopathy 5. CAD 6. CHF PLAN: Mr. Will is a 78-year-old male with a history of coronary artery disease and congestive heart failure. GI is following him for his Tylenol overdose and elevated liver enzymes. The patient's liver enzymes have been trending downward. The patient is on PPI's twice a day. The patient will need a psychiatric evaluation once he is stable. His abdomen u/s has showed cholelithiasis and possible acute cholecystitis, hepatic steatosis. Surgery has been consulted for further evaluation. We will continue to provide supportive care to the patient and follow the plan of care. The plan was discussed with Dr. Pack. Please call us with any further questions or concerns. Dictated by JAZMIN Byers for Saravanan Pack MD cc: Saravanan Pack MD I have seen and examined the patient myself and I agree with the above plan of care. Please call us with any further questions or concerns. MTDD
--- NOTE | 2019-11-11 14:46 | Diag Imaging Result Doc PS360 ---
EXAM: US ABDOMEN-COMPLETE 11/11/2019 HISTORY: elevated liver enzymes TECHNIQUE: Abdominal ultrasound COMMENT: The liver is slightly hyperechoic. The visualized portions of the body and head of the pancreas are normal in appearance. There is a small amount of ascites. There is antegrade flow in the portal vein. There is no evidence of biliary dilatation the common bile duct measuring less than 5 mm. The gallbladder is completely obscured by shadowing and is probably packed with stones. There is a positive sonographic Antony sign. The kidneys are without evidence of hydronephrosis. The spleen is not enlarged. There is a 13 mm left renal cyst. The visualized portions of the aorta and inferior vena cava are within normal limits. IMPRESSION: Cholelithiasis and possible acute cholecystitis. Hepatic steatosis. Electronically signed by Eric Higgins 11/11/2019 2:43 PM
[2019-11-11] MEDS: BREO ELLIPTA 200/25 MCG INH INH SCH ×2 (15:00→16:46)
[2019-11-11] MEDS: MAXIPIME 1 GM in NS 50 ML IV SCH (19:30)
--- NOTE | 2019-11-11 19:36 | GENERAL SURGERY CONSULTATION ---
DATE: 11/11/2019 REASON FOR CONSULTATION: Gallstones. CHIEF COMPLAINT: None really. HISTORY OF PRESENT ILLNESS: This is a 78-year-old gentleman with multiple medical issues. He underwent recent colectomy by Dr. Tripp for what I believe was a colon cancer. I reviewed his operative note, but his pathology report will not pull up. He was admitted with an overdose of Tylenol related to chronic pain medication use. He says he was not suicidal, but he has been under observation. He had initial severe elevation of his liver function tests. These have been downtrending. He had an abdominal ultrasound that showed gallstones, possibility of cholecystitis. He denies any abdominal pain. He had not been eating very much per the nurse but has not been vomiting. His bowel has been functioning. MEDICAL HISTORY: Including above with congestive heart failure, coronary disease with stents, COPD on 3.5 L nasal cannula at home, hypertension, peripheral vascular disease, cardiomyopathy, atrial fibrillation, BPH, and possible colon cancer. SURGICAL HISTORY: He has had a colectomy, circumcision, coronary stents. SOCIAL HISTORY: It used to be a pack a day, now smokes a couple of cigarettes a day. No alcohol. No drugs currently. FAMILY HISTORY: Reviewed and negative for cancer. REVIEW OF SYSTEM: A 10-point review of systems was performed and negative other than what is mentioned in HPI. PHYSICAL EXAMINATION: Vital Signs: He is afebrile, pulse 75, blood pressure 123/71, oxygen saturation 100% on 3 L. General: He is chronically ill-appearing, alert, conversant in no acute distress. HEENT: No scleral icterus. Neck: No cervical mass. Cardiovascular: Normal rate. Pulmonary: No increased work of breathing. Abdomen: Soft, nontender. There is a midline scar. Integument: Warm and dry. Psychiatric: Appropriate affect. Neurological: He is generally weak. Lymphatic: No cervical adenopathy. Peripheral vascular: No lower extremity edema. LABORATORY DATA: White count 6, hematocrit 41, platelets 192,000. INR is 2.24. Creatinine 0.5. His bilirubin is down to 1.28. His transaminases continue to downtrend now to 67 and 278. I do not see that he has had a lipase. I reviewed his imaging. His hepatitis panel was nonreactive. His acetaminophen level on admission was 3.6. ASSESSMENT AND PLAN: A 78-year-old gentleman with gallstones. He has medication-induced hepatitis and acute liver failure. This seems to be improving. He is also chronically anticoagulated, has coronary disease, congestive heart failure, cardiomyopathy, and has had a previous laparotomy incision. He is known to Dr. Tripp. From a gallstone perspective, he seems relatively asymptomatic. I do not see any biliary dilation on his abdominal ultrasound. I suspect that the changes of his gallbladder other than the gallstones are secondary to his underlying liver dysfunction, and I would recommend observation at this juncture, avoiding an operation in the setting of acute liver injury. We will him follow along, might want to touch base with Dr. Tripp and let him know as he is well known to the patient but would not plan any emergent surgical intervention at this juncture. cc: Dunia Dorsey MD
--- NOTE | 2019-11-11 19:41 | PROGRESS NOTE ---
DATE: 11/11/2019 SUBJECTIVE: The patient is somewhat lethargic. The nursing staff stated that he woke up to eat a little bit, but then fell asleep. OBJECTIVE: Vital Signs: Temperature 97.4 degrees, blood pressure 123/71, heart rate 71, respiratory rate 18, and O2 saturation is 100% on 2 L nasal cannula. General: This is a chronically ill-appearing elderly male lying in bed in no acute distress. Heart: S1, S2 normal. Regular rate and rhythm. Lungs: Equal air entry bilaterally. No wheezing. No rales. No rhonchi. Abdomen: Positive bowel sounds. Soft, nontender, nondistended. Extremities: Trace pedal edema. Neurologic: The patient is lethargic. He is able to move all 4 extremities. LABORATORIES: White blood cell count 6.6, hemoglobin 12, hematocrit 41, platelets 192,000. Sodium 139, potassium 3.8, chloride 94, CO2 of 33, BUN 8, creatinine 0.5, glucose 107, AST 67, ALT 278, total bilirubin 1.2, alkaline phosphatase 71. STUDIES: Abdominal ultrasound shows cholelithiasis with possible acute cholecystitis. ASSESSMENT AND PLAN: 1. Acetaminophen toxicity with transaminitis secondary to drug overdose. Improved. The Mucomyst has been discontinued. The patient's liver function tests continue to improve. GI is following. 2. Cholelithiasis with possible cholecystitis. We will order a HIDA scan to be done tomorrow. 3. Metabolic encephalopathy. The patient remains confused and lethargic. We will continue to monitor closely for improvement. Neurology is following. 4. Coagulopathy. Unchanged. The patient does not have any active bleeding. 5. Chronic atrial fibrillation. The patient is rate controlled. Continue on Eliquis. 6. Benign prostatic hypertrophy. Continue on Flomax. 7. Chronic obstructive pulmonary disease. Stable. 8. Dilated cardiomyopathy with EF of 20%. Aware. 9. Deep vein thrombosis prophylaxis. Continue on Eliquis. cc: Shahrzad Paez MD [facility]
--- NOTE | 2019-11-12 07:38 | Diag Imaging Result Doc PS360 ---
CHEST-1 VIEW - 11/12/2019 INDICATION: pneumonia COMPARISON: 11/10/2019 FINDINGS: Stable left-sided pacemaker. Stable significant cardiomegaly and pulmonary vascular congestion. Stable moderate right basilar pleural effusion. There is probably hazy interstitial pulmonary edema stable from prior. IMPRESSION: No change from prior. Electronically signed by Rivas Scott 11/12/2019 7:36 AM
[2019-11-12] MEDS: BREO ELLIPTA 200/25 MCG INH INH SCH (07:40)
--- NOTE | 2019-11-12 07:58 | Diag Imaging Result Doc PS360 ---
EXAM: HIDA SCAN W/O EJECT. FRACTION HISTORY: possible cholecystitis TECHNIQUE: Nuclear medicine HIDA scan without an ejection fraction COMPARISON: None. FINDINGS: 5.8 mCi Choletec administered. There is normal uptake within the liver with normal filling of the small bowel before 25 minutes. No filling of the gallbladder through 30 minutes. Activity in the right upper quadrant appears to be in the common bile duct and duodenum beyond 30 minutes however, there is the possibility that activity is present within the gallbladder. The patient was unable to continue the test beyond 50 minutes. Electronically signed by Stevo Esparza 11/12/2019 7:56 AM
[2019-11-12] MEDS: ASPIRIN EC PO SCH (09:46)
[2019-11-12] MEDS: ALDACTONE PO SCH (09:46)
[2019-11-12] MEDS: COLACE PO SCH ×2 (09:46→21:41)
[2019-11-12] MEDS: PEPCID IV SCH ×2 (09:46→21:41)
[2019-11-12] MEDS: ELIQUIS PO SCH ×2 (09:46→21:41)
[2019-11-12] MEDS: LOPRESSOR PO SCH ×2 (09:47→21:41)
[2019-11-12] MEDS: FLOMAX PO SCH (09:48)
[2019-11-12] MEDS: NORVASC PO SCH (09:48)
[2019-11-12] MEDS: LANOXIN PO SCH (09:49)
[2019-11-12] MEDS: MAXIPIME 1 GM in NS 50 ML IV SCH (09:50)
[2019-11-12 10:10] LABS: AGAP 7; ALB/GLOB RATIO 1.4; ALBUMIN 3.3 g/dL (3.5-5.0); ALKALINE PHOSPHATASE 73 U/L (32-122); BUN 14 mg/dL (8-22); CALCIUM 9.9 mg/dL (8.8-10.2); CHLORIDE 92 mmol/L (98-107); COSMO 276; CREATININE 0.6 mg/dL (0.7-1.2); ESTIMATED GFR > 60; GLUCOSE 99 mg/dL (70-104); GOT 52 U/L (10-34); GPT 231 U/L (10-44); POTASSIUM 4.1 mmol/L (3.5-5.1); SODIUM 138 mmol/L (136-145); TCO2 39 mmol/L (25-35); TOTAL BILIRUBIN 1.31 mg/dL (0.20-1.00); TOTAL PROTEIN 5.6 g/dL (6.3-8.3)
[2019-11-12 10:29] LABS: INR 2.05; PROTIME 23.6 Seconds (11.0-16.0)
[2019-11-12 10:31] LABS: BASO# 0.03 X1000 (0.0-0.2); BASO% 0.4 % (0.0-0.8); EOS% 1.4 % (0.0-10.0); HEMATOCRIT 42.3 % (42.0-52.0); HEMOGLOBIN 12.5 g/dL (14.0-18.0); LYMPH% 12.8 % (20.5-51.1); MCH 26.7 PG (27-31); MCHC 29.6 g/dL (33-37); MCV 90.4 FL (81-99); MONO# 0.92 X1000 (0.11-0.59); MPV 9.4 FL (7.4-10.4); NEUT% 72.4 % (42.2-75.2); PLT 230 X1000 (130-400); RBC 4.68 XMIL (4.7-6.1); RDW 14.4 % (11.5-14.5); WBC 7.05 X1000 (4.8-10.8)
--- NOTE | 2019-11-12 12:03 | NEUROLOGY PROGRESS NOTE ---
DATE: 11/12/2019 Mr. Will is awake, alert, attentive. He looks about the same clinically as yesterday. At times, he seemed a little bit more spontaneous today, but there was not significant change. I did not test his mental status today. I do not have any new suggestions from neurology standpoint. I hope he will continue to improve. Thanks for asking us to see Mr. Will. cc: MD SANDEE Nye III
[2019-11-12] MEDS ORDERED: LASIX IV ONE (12:13)
--- NOTE | 2019-11-12 14:14 | GENERAL SURGERY PROGRESS NOTE ---
DATE: 11/12/2019 SUBJECTIVE: He does not seem as alert this morning, but does not indicate any abdominal pain. OBJECTIVE: His abdomen remains mildly distended, but soft, nontender. Cardiovascular, normal rate. LABORATORY DATA: Reviewed his labs. ASSESSMENT/PLAN: We will continue current management, observation in the setting of a significant overdose. Doubtful that his gallbladder is of clinical significance. cc: Dunia Dorsey MD
--- NOTE | 2019-11-12 17:36 | PROGRESS NOTE ---
DATE: 11/12/2019 SUBJECTIVE: This is an elderly male sitting up in bed in no acute distress. He is sitting up eating. He states that he wants his catheter removed. OBJECTIVE: Vital Signs: Temperature 97.6 degrees, blood pressure 111/83, heart rate 67, respirations 18, and O2 saturation is 97% on 4 L nasal cannula. General: This is a chronically ill-appearing elderly male sitting at the edge of the bed in no acute distress. Heart: S1, S2. Normal. Regular rate and rhythm. Lungs: Equal air entry bilaterally. No wheezing. No rales. No rhonchi. Abdomen: Positive bowel sounds. Soft, nontender, nondistended. Extremities: No edema. No cyanosis. Neurologic: The patient is awake and oriented to person. LABORATORY DATA: White blood cell count 7, hemoglobin 12, hematocrit 42, platelets 230,000. Sodium 138, potassium 4.1, chloride 92, CO2 of 39, BUN 14, creatinine 0.6, glucose 99. INR 2. Total bilirubin 1.3, AST 52, ALT 231, alkaline phosphatase 73. IMAGING: Chest x-ray shows cardiomegaly and peripheral vascular congestion and right basilar pleural effusion. HIDA scan reveals an inconclusive study. ASSESSMENT AND PLAN: 1. Acetaminophen toxicity with transaminitis secondary to accidental drug overdose. Improved. The patient's LFTs have continued to improve. The patient completed a course of acetadote. The patient has been advised to stay away from acetaminophen related medications. 2. Cholelithiasis with possible cholecystitis. The HIDA scan was inconclusive. We will continue to monitor. The patient will follow up with General Surgery as outpatient. 3. Metabolic encephalopathy. Slowly improving. The patient is more awake today. 4. Acute pulmonary edema with acute on chronic systolic congestive heart failure exacerbation. Continue on diuretic therapy. 5. Chronic atrial fibrillation. The patient is rate controlled. Continue on Eliquis. 6. Benign prostatic hypertrophy. Continue on Flomax. 7. Chronic obstructive pulmonary disease. Stable. 8. Dilated cardiomyopathy with an ejection fraction of 20% s/p AICD. Aware. 9. Coagulopathy. Unchanged. 10. Deep vein thrombosis prophylaxis. Continue on Eliquis. DISPOSITION: Physical Therapy has been consulted. cc: Shahrzad Paez MD [facility]
--- NOTE | 2019-11-12 20:40 | GASTROENTEROLOGY PROGRESS NOTE ---
DATE: 11/12/2019 SUBJECTIVE: Mr. Will is a 78-year-old male who was sitting in bed with nursing staff at the bedside, 1 on 1 with the patient. The patient is more awake and alert today. He did complain of abdominal pain in the upper quadrant. OBJECTIVE: Vital signs: Temperature 97.6, degrees, pulse 89, respirations 18, blood pressure 111/83, oxygen saturation 97% on 4 L nasal cannula. The patient's weight is 219 pounds. BMI is 30.6 kg/m2. General: Patient is alert, orient x3. HEENT: Pale conjunctivae. Mild icterus. PERRL. Neck: Supple. Lungs: Clear to auscultation. Cardiovascular: Regular rate and rhythm. Abdomen: Soft. Tender in the upper quadrant, nondistended. Active bowel sounds heard in all four quadrant. Extremities: No clubbing or cyanosis. 2+ pitting edema in the lower extremities. Neurological: Alert and oriented x3. LABORATORIES: WBCs is 7.05, RBC 4.68, hemoglobin 12.5, hematocrit is 42, platelet 230,000. INR is 2.05. Sodium 138, potassium 4.1, chloride 93, carbon dioxide 39. BUN 14, creatinine 0.6. Glucose is 99. Calcium 9.9, total bilirubin 1.31, AST 52, ALT 231, alkaline phosphatase is 73. Albumin is 3.3. IMAGING: Chest x-ray today showed no change from the prior. The patient's HIDA scan was incomplete. It showed activity of the right upper quadrant, appears to be in the common bile duct and duodenum. At 30 minutes, there is a possibility of the activity is present within the gallbladder and the patient was unable to continue the test beyond 50 minutes. IMPRESSION AND PLAN: Tylenol overdose - improved Elevated liver enzymes - improving Coagulopathy COPD CAD CHF PLAN: Mr. Will is a 74-year-old male with a history of coronary artery disease and congestive heart failure. GI is following him for his Tylenol overdose. Currently the patient's liver enzymes are trending downward. We do not plan to do any procedures, patient can follow us up as an outpatient. We will sign off for now. Please call us for any further questions or concerns. This plan was discussed with Dr. Carmichael. Dictated by JAZMIN Byers for Kenney Carmichael MD Physician Attestation I have seen and examined the patient. I have discussed and reviewed the note by Vanda WU and agree with findings and plan as documented. In brief, Mr. Will is a 78 year old man with multiple medical problems who presented with accidental vs intentional acetaminophen overdose vs ischemic liver injury. LFTs have improved significantly. Patient is tolerating PO without significant abdominal pain. He does not have acute cholecystitis based off exam, labs, or history. Discussed with surgery. Will sign off. Please call with questions. SANDEE
[2019-11-12] MEDS: SODIUM CHLORIDE 0.9% INJ SCH (21:41)
[2019-11-12] MEDS: D5W IV SCH (22:48)
[2019-11-12] MEDS: ACETADOTE IV SCH (22:48)
[2019-11-12] MEDS: ATIVAN IV PRN (23:41)
[2019-11-13 07:42] LABS: HEMATOCRIT 41.4 % (42.0-52.0); HEMOGLOBIN 12.3 g/dL (14.0-18.0); MCH 26.9 PG (27-31); MCHC 29.7 g/dL (33-37); MCV 90.4 FL (81-99); MPV 9.4 FL (7.4-10.4); RBC 4.58 XMIL (4.7-6.1); RDW 14.5 % (11.5-14.5); WBC 8.6 X1000 (4.8-10.8)
[2019-11-13 07:51] LABS: INR 2.32; PROTIME 26.1 Seconds (11.0-16.0)
[2019-11-13] MEDS: BREO ELLIPTA 200/25 MCG INH INH SCH (07:53)
[2019-11-13 08:05] LABS: AGAP 10; ALB/GLOB RATIO 1.1; ALBUMIN 3.1 g/dL (3.5-5.0); ALKALINE PHOSPHATASE 71 U/L (32-122); BUN 21 mg/dL (8-22); CALCIUM 9.4 mg/dL (8.8-10.2); CHLORIDE 94 mmol/L (98-107); COSMO 285; CREATININE 0.7 mg/dL (0.7-1.2); ESTIMATED GFR > 60; GLUCOSE 118 mg/dL (70-104); GOT 44 U/L (10-34); GPT 197 U/L (10-44); POTASSIUM 4.3 mmol/L (3.5-5.1); SODIUM 141 mmol/L (136-145); TCO2 37 mmol/L (25-35); TOTAL BILIRUBIN 1.17 mg/dL (0.20-1.00)
[2019-11-13] MEDS: PEPCID IV SCH (09:01)
[2019-11-13] MEDS: LANOXIN PO SCH (09:01)
[2019-11-13] MEDS: SODIUM CHLORIDE 0.9% INJ SCH (09:01)
[2019-11-13] MEDS: LOPRESSOR PO SCH (09:02)
[2019-11-13] MEDS: ALDACTONE PO SCH (09:02)
[2019-11-13] MEDS: ELIQUIS PO SCH (09:02)
[2019-11-13] MEDS: FLOMAX PO SCH (09:02)
[2019-11-13] MEDS: COLACE PO SCH (09:02)
[2019-11-13] MEDS: NORVASC PO SCH (09:03)
[2019-11-13] MEDS: ASPIRIN EC PO SCH (09:04)
[2019-11-13 14:49] LABS: ALLEN TEST YES; BE 7.3 mmoll (-3.0-3.0); BLOOD TYPE ARTERIAL; HCO3-(ACT) 30.5 mmoll (20.0-26.0); METHB 0.7 % (0.0-1.5); O2HB 92.1 % (95.0-99.0); PO2(98.6) 70 mmHg (60-100); SAMPLE BLOOD; SAO2 94.9 % (95.0-100.0); THB 13.1 g/dL (11.5-17.4); pH(98.6) 7.25 (7.35-7.45)
[2019-11-13 14:53] LABS: MODALITY CANNULA; PCO2(98.6) 86 mmHg (35-45)
--- NOTE | 2019-11-13 15:05 | Diag Imaging Result Doc PS360 ---
EXAM: CHEST-PORTABLE HISTORY: Decreased LOC, decreased O2 Sat TECHNIQUE: Single view COMPARISON: 11/12/2019 FINDINGS: Poor inspiratory effort. There are moderate-sized bilateral pleural effusions. Heart is enlarged and there is pulmonary edema. Left-sided pacemaker is present. There is basilar atelectasis. IMPRESSION: No interval improvement Electronically signed by Stevo Esparza 11/13/2019 3:02 PM
[2019-11-13] MEDS ORDERED: LASIX IV ONE (15:09)
[2019-11-13] MEDS ORDERED: HALDOL IM PRN (15:11)
[2019-11-13] MEDS ORDERED: ALBUMIN 25% IV ONE (15:15)
[2019-11-13] MEDS ORDERED: NS NEB INH SCH (15:15)
[2019-11-13] MEDS: XOPENEX NEB INH SCH ×2 (15:59→22:25)
[2019-11-13 17:27] LABS: ALLEN TEST YES; BE 10.2 mmoll (-3.0-3.0); BLOOD TYPE ARTERIAL; HCO3-(ACT) 32.9 mmoll (20.0-26.0); METHB 1.5 % (0.0-1.5); O2(CT) 17.5 mL/dL (15.0-23.0); O2HB 96.1 % (95.0-99.0); PO2(98.6) 177 mmHg (60-100); SAMPLE BLOOD; SAO2 99.7 % (95.0-100.0); SRATE 22 BPM; THB 12.7 g/dL (11.5-17.4); pH(98.6) 7.33 (7.35-7.45)
[2019-11-13 17:32] LABS: MODALITY BI PAP; PCO2(98.6) 74 mmHg (35-45)
[2019-11-14] MEDS: ELIQUIS PO SCH ×4 (02:20→21:58)
[2019-11-14] MEDS: COLACE PO SCH ×4 (02:20→21:58)
[2019-11-14] MEDS: PEPCID IV SCH ×4 (02:21→21:58)
[2019-11-14] MEDS: LOPRESSOR PO SCH ×4 (02:21→21:58)
[2019-11-14 05:20] LABS: ALLEN TEST YES; BE 11.8 mmoll (-3.0-3.0); BLOOD TYPE ARTERIAL; HCO3-(ACT) 34.1 mmoll (20.0-26.0); O2(CT) 20.2 mL/dL (15.0-23.0); PO2(98.6) 152 mmHg (60-100); SAMPLE BLOOD; SAO2 100.1 % (95.0-100.0); THB 14.6 g/dL (11.5-17.4)
[2019-11-14 05:37] LABS: MODALITY BI PAP; PCO2(98.6) 64 mmHg (35-45)
[2019-11-14 06:13] LABS: HEMATOCRIT 37.9 % (42.0-52.0); HEMOGLOBIN 11.3 g/dL (14.0-18.0); MCHC 29.8 g/dL (33-37); MCV 90.5 FL (81-99); MPV 9.6 FL (7.4-10.4); RBC 4.19 XMIL (4.7-6.1); RDW 14.7 % (11.5-14.5); WBC 7.78 X1000 (4.8-10.8)
[2019-11-14 06:21] LABS: INR 2.8; PROTIME 30.3 Seconds (11.0-16.0)
[2019-11-14 06:44] LABS: AGAP 10; ALB/GLOB RATIO 1.3; ALBUMIN 3.2 g/dL (3.5-5.0); ALKALINE PHOSPHATASE 60 U/L (32-122); BUN 28 mg/dL (8-22); CALCIUM 9.3 mg/dL (8.8-10.2); CHLORIDE 95 mmol/L (98-107); COSMO 288; CREATININE 0.9 mg/dL (0.7-1.2); ESTIMATED GFR > 60; GLUCOSE 88 mg/dL (70-104); GOT 34 U/L (10-34); GPT 136 U/L (10-44); POTASSIUM 4.6 mmol/L (3.5-5.1); SODIUM 142 mmol/L (136-145); TCO2 37 mmol/L (25-35); TOTAL BILIRUBIN 1.22 mg/dL (0.20-1.00); TOTAL PROTEIN 5.6 g/dL (6.3-8.3)
[2019-11-14] MEDS: XOPENEX NEB INH SCH ×2 (08:01→15:52)
[2019-11-14] MEDS: BREO ELLIPTA 200/25 MCG INH INH SCH (08:01)
--- NOTE | 2019-11-14 10:13 | Diag Imaging Result Doc PS360 ---
EXAM: CHEST-PORTABLE - 11/14/2019 HISTORY: dyspnea TECHNIQUE: Portable chest COMPARISON: 11/13/2019 FINDINGS: There is stable cardiomegaly. There is transvenous cardiac pacemaker again seen. There are stable findings of vascular congestion and basilar edema. There is a possible small left pleural effusion. There is no evidence of pneumothorax. IMPRESSION: Stable findings of pulmonary edema/congestive heart failure. Electronically signed by Ethan Whyte 11/14/2019 10:10 AM
[2019-11-14] MEDS: LASIX IV SCH ×3 (10:26→21:58)
[2019-11-14] MEDS: ALDACTONE PO SCH (10:27)
[2019-11-14] MEDS: NORVASC PO SCH (10:27)
[2019-11-14] MEDS: ASPIRIN EC PO SCH (10:27)
[2019-11-14] MEDS: FLOMAX PO SCH (10:27)
[2019-11-14] MEDS: LANOXIN PO SCH (10:28)
--- NOTE | 2019-11-14 13:26 | PROGRESS NOTE ---
DATE: 11/14/2019 SUBJECTIVE: The patient is more awake and alert. He was able to eat his breakfast. He is still confused. OBJECTIVE: Vital Signs: Temperature 97.3 degrees, blood pressure 92/69, heart rate 48, respirations 19, O2 saturation 94% on 2 L nasal cannula. General: This is a chronically ill- appearing elderly male lying in bed in no acute distress. Heart: S1, S2. Normal. Lungs: Mild expiratory wheezes. Abdomen: Positive bowel sounds. Soft, nontender, nondistended. Extremities: 1+ edema bilaterally. Neurologic: The patient is oriented to self. He is able to move all 4 extremities. LABORATORY DATA: White blood cell count 7.7, hemoglobin 11, hematocrit 37, platelets 192,000. ABG: pH of 7.4, pCO2 of 64, PO2 152. Sodium 142, potassium 4.6, chloride 95, CO2 37, BUN 28, creatinine 0.9, glucose 88, total bilirubin 1.2, AST 34, ALT 136, alkaline phosphatase 60, albumin 3.2. IMAGING: Chest x-ray shows pulmonary edema with small left pleural effusion. ASSESSMENT AND PLAN: 1. Acetaminophen toxicity with transaminitis secondary to an accidental drug overdose. The patient's LFTs have continued to improve daily. The patient completed a course of Acetadote. 2. Acute hypercapnic respiratory failure, improved. The patient has been on BiPAP all night and his mental status has improved as well as his ventilation. We will continue with BiPAP at night. 3. Acute pulmonary edema with acute on chronic systolic congestive heart failure exacerbation. Continue with diuretic therapy. 4. Chronic atrial fibrillation. The patient is rate controlled. Continue on Eliquis. 5. Benign prostatic hypertrophy. Continue on Flomax. 6. Chronic obstructive pulmonary disease. Continue with bronchodilator therapy and supplemental oxygen. 7. Dilated cardiomyopathy with an ejection fraction of 20%, status post AICD. Aware. 8. Coagulopathy. Continue to monitor closely. 9. Metabolic encephalopathy. Slowly improving. Continue to monitor for improvement. 10. Deep vein thrombosis prophylaxis. The patient is on Eliquis. 11. Disposition. The patient has a bed ready at [place] once he is medically stable for discharge. cc: Shahrzad Paez MD [facility]
[2019-11-15] MEDS: XOPENEX NEB INH SCH ×4 (00:45→22:13)
--- NOTE | 2019-11-15 03:56 | PROGRESS NOTE ---
DATE: 11/13/2019 SUBJECTIVE: The patient was noted to be lethargic and having difficulty swallowing this morning. His O2 saturations were noted to be 85% on 4 L nasal cannula. A stat ABG was done that revealed a pCO2 of 86. OBJECTIVE: Vital Signs: Temperature 97.9 degrees, blood pressure 112/42, heart rate 78, respirations 16, O2 saturation 95% on 4 L nasal cannula, intake 50, output 1 L. General: This is a chronically ill-appearing elderly male lying in bed in no acute distress. Heart: S1, S2 normal. Lungs: Coarse breath sounds with rhonchi. Abdomen: Positive bowel sounds. Soft, obese. Extremities: The patient appears to have chronic venous stasis. Neurologic: The patient is lethargic. LABORATORY: White blood cell count 8.6, hemoglobin 12, hematocrit 41, platelets 220,000. INR 2.3. ABG: pH is 7.25, pCO2 86, pO2 70, bicarbonate 30. Sodium 141, potassium 4.3, chloride 94, CO2 37, BUN 21, creatinine 0.7, glucose 118, AST 14, ALT 197, total bilirubin 1.1. ProBNP 5789. Chest x-ray shows moderate-sized bilateral pleural effusions and pulmonary edema. ASSESSMENT AND PLAN: 1. Acute hypoxemic and hypercapnic respiratory failure. Likely secondary to volume overload. The patient has been transferred to [facility] and placed on BiPAP. We will also start diuretic therapy. 2. Acute on chronic systolic congestive heart failure exacerbation. Continue with diuretic therapy. We will monitor the patient's urine output and volume status closely. 3. Chronic atrial fibrillation. The patient is rate controlled. Continue on Eliquis. 4. Acetaminophen toxicity with transaminitis secondary to an accidental drug overdose. Slowly resolving. 5. Cholelithiasis with chronic cholecystitis. The patient will follow up with General Surgery as outpatient. 6. Metabolic encephalopathy. Worse, the patient is hypercapnic. Will monitor closely. 7. Benign prostatic hypertrophy. Continue on Flomax. 8. Dilated cardiomyopathy with an ejection fraction of 20%, status post automatic implantable cardioverter-defibrillator. Aware. 9. Chronic obstructive pulmonary disease exacerbation. Continue on bronchodilator therapy and oxygen. 10. Coagulopathy. Unchanged. Continue to monitor closely. 11. Deep vein thrombosis prophylaxis. The patient is on Eliquis. 12. Disposition. The patient has been transferred to [facility] for further treatment. cc: Shahrzad Paez MD [facility]
[2019-11-15 05:33] LABS: ALLEN TEST YES; BE 14.7 mmoll (-3.0-3.0); BLOOD TYPE ARTERIAL; HCO3-(ACT) 36.4 mmoll (20.0-26.0); METHB 1.3 % (0.0-1.5); O2HB 95.5 % (95.0-99.0); PO2(98.6) 94 mmHg (60-100); SAMPLE BLOOD; SAO2 98.9 % (95.0-100.0); THB 12.6 g/dL (11.5-17.4)
[2019-11-15 05:36] LABS: PCO2(98.6) 69 mmHg (35-45)
[2019-11-15 05:37] LABS: MODALITY CANNULA
[2019-11-15 06:20] LABS: HEMATOCRIT 38.1 % (42.0-52.0); HEMOGLOBIN 11.5 g/dL (14.0-18.0); MCHC 30.2 g/dL (33-37); MCV 89.4 FL (81-99); MPV 9.8 FL (7.4-10.4); RBC 4.26 XMIL (4.7-6.1); RDW 14.6 % (11.5-14.5); WBC 8.55 X1000 (4.8-10.8)
[2019-11-15 07:08] LABS: AGAP 9; ALB/GLOB RATIO 1.3; ALBUMIN 3.4 g/dL (3.5-5.0); ALKALINE PHOSPHATASE 64 U/L (32-122); BUN 33 mg/dL (8-22); CALCIUM 9.1 mg/dL (8.8-10.2); CHLORIDE 93 mmol/L (98-107); COSMO 286; CREATININE 0.9 mg/dL (0.7-1.2); ESTIMATED GFR > 60; GLUCOSE 89 mg/dL (70-104); GOT 38 U/L (10-34); GPT 122 U/L (10-44); POTASSIUM 3.8 mmol/L (3.5-5.1); SODIUM 140 mmol/L (136-145); TCO2 38 mmol/L (25-35); TOTAL BILIRUBIN 1.09 mg/dL (0.20-1.00)
[2019-11-15] MEDS: ASPIRIN EC PO SCH (08:12)
[2019-11-15] MEDS: ELIQUIS PO SCH ×2 (08:12→20:58)
[2019-11-15] MEDS: COLACE PO SCH ×2 (08:12→20:57)
[2019-11-15] MEDS: FLOMAX PO SCH (08:13)
[2019-11-15] MEDS: ALDACTONE PO SCH (08:13)
[2019-11-15] MEDS: NORVASC PO SCH (08:13)
[2019-11-15] MEDS: LOPRESSOR PO SCH ×2 (08:13→20:57)
[2019-11-15] MEDS: LANOXIN PO SCH (08:13)
[2019-11-15] MEDS: LASIX IV SCH ×2 (08:13→20:57)
[2019-11-15] MEDS: BREO ELLIPTA 200/25 MCG INH INH SCH (09:09)
[2019-11-15] MEDS: PEPCID IV SCH ×2 (09:22→21:17)
--- NOTE | 2019-11-15 11:09 | NEUROLOGY PROGRESS NOTE ---
DATE: 11/15/2019 LOCATION: Room 209. SUBJECTIVE: Mr. Will had increased lethargy over the weekend associated with hypercapnia, but now is improved. OBJECTIVE: This morning, he is awake, alert, attentive. He is significantly brighter and more spontaneous today than when I saw him 3 days ago. Speech is not dysarthric. Language function is intact. He is oriented. I do not have any new thoughts or new suggestions from Neurology standpoint. His encephalopathy associated with acetaminophen intoxication and hepatic injury is much improved. Thank you for asking Neurology to see Mr. Will. cc: MD SANDEE Nye III
--- NOTE | 2019-11-15 12:03 | GENERAL SURGERY PROGRESS NOTE ---
DATE: 11/15/2019 SUBJECTIVE: No fevers. Intermittent tachycardia. OBJECTIVE: Vital Signs: Blood pressure 91/63, oxygen saturation is high 90s on 3 L. General: He is alert. Abdomen: Soft, nontender, nondistended. Skin: Warm and dry with no obvious jaundice. LABORATORY DATA: White count is 8. His bilirubin is down to 1.09. Transaminases continue to down trend as well. ASSESSMENT AND PLAN: This is a gentleman with Tylenol/acetaminophen overdose. He does have gallstones. I think his gallbladder findings are secondary to his underlying liver injury. He denies any pain. He seems to be tolerating a diet. Will follow along. cc: Dunia Dorsey MD
[2019-11-15] MEDS ORDERED: VITAMIN K 10 MG in NS 50 ML IV ONE (15:51)
--- NOTE | 2019-11-15 16:21 | PROGRESS NOTE ---
DATE: 11/15/2019 SUBJECTIVE: The patient is resting comfortably. He states that he wants to go home. He is requesting a wheelchair. He refused to wear his BIPAP last night. OBJECTIVE: Vital Signs: Temperature 97.6 degrees, blood pressure 91/63, heart rate 62, respirations 18, O2 saturation 98% on 3 L nasal cannula. Intake 1 L, output 825. General: This is a overweight male sitting at the edge of the bed in no acute distress. Heart: S1, S2. Normal. Lungs: Equal air entry bilaterally. No wheezing. No rales. No rhonchi. Abdomen: Positive bowel sounds. Soft, nontender, nondistended. Extremities: No edema. No cyanosis. Neurologic: The patient is oriented to person. He is able to move all four extremities. LABS: White blood cell count 8.5, hemoglobin 11, hematocrit 38, platelets 209,000. ABG, pH of 7.4, pCO2 69, PO2 94. Sodium 140, potassium 3.8, chloride 93, CO2 38, BUN 33, creatinine 0.9, glucose 89, total bilirubin 1, AST 38, ALT 122, alkaline phosphatase 64. ASSESSMENT AND PLAN: 1. Acute hypoxemic and hypercapnic respiratory failure. Continue to treat the underlying volume overload. The patient's pCO2 is a little higher today. He refused his BiPAP last night. The patient has been encouraged to wear his BiPAP at night. 2. Acute on chronic systolic congestive heart failure exacerbation. Continue with diuretic therapy. We will continue to monitor the patient's urine output and volume status closely. 3. Chronic atrial fibrillation. The patient is rate controlled. Continue on digoxin and Eliquis. 4. Cholelithiasis with chronic cholecystitis. The patient will follow up with General Surgery as outpatient. 5. Metabolic encephalopathy. Slowly improving. The patient has periods of confusion. 6. Benign prostatic hypertrophy. 7. Dilated cardiomyopathy with an ejection fraction of 20% s/p AICD. Aware. 8. Chronic obstructive pulmonary disease. Continue with bronchodilator therapy and oxygen. 9. Coagulopathy. We will give the patient a dose of vitamin K. 10. Deep vein thrombosis prophylaxis. The patient is currently on Eliquis. 11. Acetaminophen toxicity with transaminitis secondary to an accidental drug overdose. Improved. The patient completed therapy with Acetadote. 12. Disposition. Continue to work with Physical Therapy. Once the patient is medically stable, he has a bed available at [place] [facility]. cc: Shahrzad Paez MD [facility]
[2019-11-15] MEDS: SODIUM CHLORIDE 0.9% INJ SCH (21:17)
[2019-11-16 06:32] LABS: HEMATOCRIT 38.7 % (42.0-52.0); HEMOGLOBIN 11.6 g/dL (14.0-18.0); MPV 9.8 FL (7.4-10.4); RBC 4.3 XMIL (4.7-6.1); RDW 14.6 % (11.5-14.5); WBC 7.49 X1000 (4.8-10.8)
[2019-11-16 06:35] LABS: INR 1.94; PROTIME 22.6 Seconds (11.0-16.0)
[2019-11-16 06:51] LABS: AGAP 8; ALB/GLOB RATIO 1.8; ALBUMIN 3.6 g/dL (3.5-5.0); ALKALINE PHOSPHATASE 67 U/L (32-122); BUN 33 mg/dL (8-22); CHLORIDE 91 mmol/L (98-107); COSMO 285; CREATININE 0.8 mg/dL (0.7-1.2); ESTIMATED GFR > 60; GLUCOSE 127 mg/dL (70-104); GOT 35 U/L (10-34); GPT 105 U/L (10-44); POTASSIUM 3.9 mmol/L (3.5-5.1); SODIUM 138 mmol/L (136-145); TCO2 39 mmol/L (25-35); TOTAL BILIRUBIN 1.28 mg/dL (0.20-1.00); TOTAL PROTEIN 5.6 g/dL (6.3-8.3)
[2019-11-16] MEDS: BREO ELLIPTA 200/25 MCG INH INH SCH (08:36)
[2019-11-16] MEDS: XOPENEX NEB INH SCH (08:37)
[2019-11-16] MEDS: PEPCID IV SCH ×3 (08:47→21:16)
[2019-11-16] MEDS: ASPIRIN EC PO SCH (08:48)
[2019-11-16] MEDS: LASIX IV SCH ×2 (08:48→21:13)
[2019-11-16] MEDS: ALDACTONE PO SCH (08:48)
[2019-11-16] MEDS: LOPRESSOR PO SCH ×2 (08:48→21:09)
[2019-11-16] MEDS: FLOMAX PO SCH (08:48)
[2019-11-16] MEDS: LANOXIN PO SCH (08:48)
[2019-11-16] MEDS: ELIQUIS PO SCH ×2 (08:49→21:09)
[2019-11-16] MEDS: COLACE PO SCH ×2 (08:49→21:08)
--- NOTE | 2019-11-16 11:43 | GENERAL SURGERY PROGRESS NOTE ---
DATE: 11/16/2019 SUBJECTIVE: No events documented. He is sleeping comfortably this morning. No obvious jaundice. OBJECTIVE: Cardiovascular: Normal rate. Vital Signs: Blood pressure has been 90/66. Integument: Without jaundice. Abdomen: Remains protuberant, but soft. LABORATORY DATA: White count 7, hematocrit is 38. INR is 1.94. Bilirubin is 1.28, which is overall about stable. AST and ALT continue to downtrend. ASSESSMENT AND PLAN: A 78-year-old gentleman with acute liver injury related to acetaminophen overdose. He has gallstones, but I do not suspect this is an active issue currently. Would advise against any operative intervention at this juncture. Please call with any question or concerns. cc: Dunia Dorsey MD
[2019-11-16] MEDS: VENTOLIN HFA INH SCH ×2 (15:59→21:15)
--- NOTE | 2019-11-16 16:05 | PROGRESS NOTE ---
DATE: 11/16/2019 SUBJECTIVE: When I evaluated this patient he was getting physical therapy. I have requested a COVID-19 test so he can go to a rehab center. I do not think this patient will be a positive test. He seems to be getting better. He still has some fluid overload and he is getting Lasix twice a day. He has a positive balance of 3 L. We will continue with the same management. OBJECTIVE: Vital Signs: Temperature 98.6 degrees, pulse 74, respiratory rate 18, blood pressure 104/61, oxygen saturation 100% on 3 L of nasal cannula. HEENT: Head normocephalic, no trauma. PERRLA. Neck: Supple. No JVD. No masses. Central trachea. Chest: Clear to auscultation, some crepitus at the bases. No rhonchi. Abdomen: Soft. Positive bowel sounds. Extremities: 2 to 3+ lower extremity edema. No clubbing. No cyanosis. Neurological: Patient is awake, he is oriented to person, place and year today. He is able to move all 4 extremities and actually he has been working with Physical Therapy. LABORATORY: WBC 7.4, hemoglobin 11.6, hematocrit 38.7, platelets 178,000. Sodium 138, potassium 3.9, chloride 91, bicarbonate 39, BUN 33, creatinine 0.8, glucose 127, calcium 9, AST 35, ALT 105, alkaline phosphatase 67, albumin 3.6. ASSESSMENT AND PLAN: 1. Acute hypoxemic and hypercarbic respiratory failure. We will continue treating this patient, he has been refusing to use the BiPAP machine on and off. He is still having some fluid overload. We will continue with same management. 2. Acute on chronic systolic congestive heart failure exacerbation with dilated cardiomyopathy with an ejection fraction of 20%, is status post automated implantable cardioverter defibrillator . Continue with diuretics. We will continue monitoring his in an outs closely. 3. Chronic atrial fibrillation, rate controlled. Continue with digoxin and Eliquis. 4. Cholelithiasis with chronic cholecystitis. The patient has been followed by Surgery Department. For now, no intervention is required. 5. Metabolic encephalopathy, slowly improving. The patient has some episodes of confusion on and off. 6. Chronic obstructive pulmonary disease. Continue with the same management. He is on home oxygen. 7. Coagulopathy. Aware. He received a dose of vitamin K yesterday. 8. Deep vein thrombosis prophylaxis. He is currently on Eliquis. 9. Acetaminophen toxicity with transaminitis secondary to accidental drug overdose, improved. The patient has completed therapy with Acetadote. 10. Disposition. Continue physical therapy. Once the patient is more stable he will be discharged to a rehab center, I believe at [place]. It has been requested a Coronavirus disease 2019 so he can be discharged if this is negative. cc: Domo Lewis MD
[2019-11-17] MEDS: VENTOLIN HFA INH SCH ×2 (03:30→10:21)
[2019-11-17 05:49] LABS: HEMATOCRIT 39.4 % (42.0-52.0); HEMOGLOBIN 11.6 g/dL (14.0-18.0); MCH 26.6 PG (27-31); MCHC 29.4 g/dL (33-37); MCV 90.4 FL (81-99); MPV 9.8 FL (7.4-10.4); RBC 4.36 XMIL (4.7-6.1); RDW 14.7 % (11.5-14.5); WBC 8.52 X1000 (4.8-10.8)
[2019-11-17 05:58] LABS: INR 1.98
[2019-11-17 06:38] LABS: AGAP 9; ALB/GLOB RATIO 1.3; ALBUMIN 3.3 g/dL (3.5-5.0); ALKALINE PHOSPHATASE 66 U/L (32-122); BUN 35 mg/dL (8-22); CHLORIDE 92 mmol/L (98-107); COSMO 289; CREATININE 0.9 mg/dL (0.7-1.2); ESTIMATED GFR > 60; GLUCOSE 119 mg/dL (70-104); GOT 34 U/L (10-34); GPT 89 U/L (10-44); POTASSIUM 4.4 mmol/L (3.5-5.1); SODIUM 140 mmol/L (136-145); TCO2 39 mmol/L (25-35); TOTAL BILIRUBIN 1.19 mg/dL (0.20-1.00); TOTAL PROTEIN 5.8 g/dL (6.3-8.3)
[2019-11-17] MEDS: LASIX IV SCH (09:21)
[2019-11-17] MEDS: ELIQUIS PO SCH ×2 (09:21→20:08)
[2019-11-17] MEDS: LOPRESSOR PO SCH ×2 (09:21→20:08)
[2019-11-17] MEDS: ASPIRIN EC PO SCH (09:29)
[2019-11-17] MEDS: LANOXIN PO SCH (09:29)
[2019-11-17] MEDS: FLOMAX PO SCH (09:31)
[2019-11-17] MEDS: COLACE PO SCH ×2 (09:31→20:08)
[2019-11-17] MEDS: PEPCID IV SCH (09:32)
[2019-11-17] MEDS: BREO ELLIPTA 200/25 MCG INH INH SCH (10:21)
[2019-11-17] MEDS: ALDACTONE PO SCH ×2 (11:47→12:05)
--- NOTE | 2019-11-17 13:22 | PROGRESS NOTE ---
DATE: 11/17/2019 SUBJECTIVE: I have placed this patient back on his home dose of Lasix which is 40 once a day. He seems to be feeling better. He is resting in bed. No acute events overnight. It looks like at this moment he is pending rehab center placement. OBJECTIVE: Vital Signs: Temperature 97.8 degrees, pulse 72, respiratory rate 24, blood pressure 125/80, and oxygen saturation 95% on 3 L of nasal cannula. HEENT: Head normocephalic. No trauma. PERRLA. Neck: Supple. No JVD. No masses. Central trachea. Chest: Clear to auscultation with some crepitus at the bases. No rhonchi. Abdomen: Soft. Positive bowel sounds. Extremities: Two to 3+ lower extremity edema. No clubbing. No cyanosis. Neurological: The patient is sleepy, but arousable. He is oriented. He is able to move all 4 extremities, but he does have generalized weakness. LABORATORY: WBC 8.5, hemoglobin 11.6, hematocrit 39.4, and platelets 173,000. Sodium 140, potassium 4.4, chloride 92, bicarbonate 39, BUN 35, creatinine 0.9, glucose 119, calcium 9, total bilirubin 1.1, AST 34, ALT 89, and alkaline phosphatase 66. ASSESSMENT AND PLAN: 1. Acute hypoxemic and hypercarbic respiratory failure. Continue with the same management for now. I had decreased the dose of Lasix today to his home dose. I will also continue with his Aldactone, and he is feeling better. 2. Acute on chronic systolic congestive heart failure exacerbation with dilated cardiomyopathy with an ejection fraction of 20%, status post AICD placement. Continue with diuretics. 3. Chronic atrial fibrillation, rate controlled. Continue with digoxin and Eliquis. 4. Cholelithiasis with chronic cholecystitis. The patient has been followed by Surgery Department. For now, no intervention is required. 5. Metabolic encephalopathy, slowly improving. 6. COPD, on home O2, around 3 L. 7. Coagulopathy. He received a dose of vitamin K. We will monitor. 8. Deep vein thrombosis prophylaxis. He is on Eliquis. 9. Acetaminophen toxicity with transaminitis secondary to accidental drug overdose. LFTs are much better compared to admission. The patient received treatment already for this intoxicated overdose. 10. Disposition. Continue physical therapy. Once this patient is more stable, we will discharge this patient to a rehab center I believe at [facility]. I requested coronavirus disease 2019. If this is negative, this patient probably can be discharged. He seems to be stable. cc: Domo Lewis MD
--- NOTE | 2019-11-17 14:52 | NEUROLOGY PROGRESS NOTE ---
DATE: 11/17/2019 Mr. Will is awake, alert, attentive, spontaneous, and conversant. He asked again about discharge from the hospital. His earlier encephalopathy appears to be resolving. There is nothing new from Neurology standpoint. PLAN: No suggestions today. Thanks for asking Neurology to see Mr. Will. cc: MD SANDEE Nye III
[2019-11-17] MEDS: PEPCID PO SCH (20:08)
[2019-11-17] MEDS ORDERED: LASIX IV ONE (22:28)
[2019-11-17 22:31] LABS: ALLEN TEST YES; BE 13.6 mmoll (-3.0-3.0); BLOOD TYPE ARTERIAL; HCO3-(ACT) 35.4 mmoll (20.0-26.0); METHB 0.8 % (0.0-1.5); O2(CT) 16.2 mL/dL (15.0-23.0); O2HB 90.7 % (95.0-99.0); PO2(98.6) 55 mmHg (60-100); SAMPLE BLOOD; SAO2 93.6 % (95.0-100.0); THB 12.7 g/dL (11.5-17.4); pH(98.6) 7.46 (7.35-7.45)
[2019-11-17 22:33] LABS: MODALITY CANNULA; PCO2(98.6) 56 mmHg (35-45)
[2019-11-17] MEDS ORDERED: SODIUM CHLORIDE 0.9% INJ SCH (22:45)
[2019-11-18] MEDS: VENTOLIN HFA INH SCH ×5 (05:01→21:00)
[2019-11-18 07:26] LABS: AGAP 10; ALB/GLOB RATIO 1.5; ALBUMIN 3.5 g/dL (3.5-5.0); ALKALINE PHOSPHATASE 96 U/L (32-122); BUN 45 mg/dL (8-22); CALCIUM 9.3 mg/dL (8.8-10.2); CHLORIDE 90 mmol/L (98-107); COSMO 289; CREATININE 0.9 mg/dL (0.7-1.2); ESTIMATED GFR > 60; GLUCOSE 125 mg/dL (70-104); GOT 71 U/L (10-34); GPT 105 U/L (10-44); SODIUM 138 mmol/L (136-145); TCO2 38 mmol/L (25-35); TOTAL BILIRUBIN 1.56 mg/dL (0.20-1.00); TOTAL PROTEIN 5.8 g/dL (6.3-8.3)
[2019-11-18] MEDS: BREO ELLIPTA 200/25 MCG INH INH SCH (08:20)
[2019-11-18] MEDS: LANOXIN PO SCH (08:29)
[2019-11-18] MEDS: ASPIRIN EC PO SCH (08:29)
[2019-11-18] MEDS: PEPCID PO SCH ×2 (08:29→21:52)
[2019-11-18] MEDS: LOPRESSOR PO SCH ×2 (08:29→21:52)
[2019-11-18] MEDS: ALDACTONE PO SCH (08:29)
[2019-11-18] MEDS: FLOMAX PO SCH (08:29)
[2019-11-18] MEDS: COLACE PO SCH ×2 (08:29→21:54)
[2019-11-18] MEDS: ELIQUIS PO SCH (08:29)
[2019-11-18] MEDS ORDERED: LASIX PO SCH (09:00)
[2019-11-18] MEDS ORDERED: LASIX IV SCH (09:00)
[2019-11-18 12:13] LABS: INR 3.25; PROTIME 34.2 Seconds (11.0-16.0)
--- NOTE | 2019-11-18 14:07 | PROGRESS NOTE ---
DATE: 11/18/2019 SUBJECTIVE: I have placed this patient on Lasix twice a day. This patient is coagulopathic and his liver function test is increasing again, so I will stop the Eliquis that he has been taking twice a day because his INR is 3.2. Also I have requested an evaluation by [place] [id number]. In the other hand, I will ask Hematology Department to evaluate this patient to see why this patient is coagulopathic. PHYSICAL EXAMINATION: Vital Signs: Temperature 97.2 degrees, pulse 73, respiratory rate 18, blood pressure 109/65. Oxygen saturation 100% on 4 L of nasal cannula. HEENT: Head normocephalic. No trauma. PERRLA. Neck: Supple. No JVD. No masses. Central trachea. Chest: Decreased breath sounds globally with crepitus bilaterally and some crackles at the bases. No rhonchi. Abdomen: Soft. Positive bowel sounds. Extremities: 3+ lower extremity edema. No clubbing. No cyanosis. Neurological: The patient is awake, alert. He is oriented, but it looks like he has been confused on and off. He is able to move all 4 extremities but he has generalized weakness. LABORATORY: PT 34.2, INR 3.2. Sodium 138, potassium 5, chloride 90, bicarbonate 38, BUN 45, creatinine 0.9, glucose 125, calcium 9.3. ProBNP 11,233. Albumin 3.5. ASSESSMENT AND PLAN: 1. Acute on chronic hypoxemic and hypercarbic respiratory failure. As per the patient he is on home O2 around 3 to 4 L. This is likely multifactorial, but mainly because of fluid. I put this patient on Lasix twice a day and I have consulted Cardiology Department. Continue with Aldactone as well. Yesterday, he was feeling better but today he is worse. 2. Acute on chronic systolic congestive heart failure exacerbation with dilated cardiomyopathy and low ejection fraction, status post AICD placement. Again, I will continue with diuretics. Cardiology Department has been consulted. We will monitor. 3. Chronic atrial fibrillation, rate controlled. He is on digoxin and he used to be on Eliquis, but I will stop it. I have stopped it because he is coagulopathic. His INR is 3.2. 4. Coagulopathy. I have requested an evaluation by Hematology/Oncology Department. He came with liver failure, but this is improving and he is still coagulopathic. 5. COPD, on home O2 around 3 to 4 L. 6. Metabolic encephalopathy, slowly improving. 7. Cholelithiasis with chronic cholecystitis. This patient has been followed by Surgery Department. I do not think they will do any kind of intervention at this moment. 8. DVT prophylaxis. He used to be on Eliquis but this has been stopped. I will continue to monitor. His INR is 3.2. 9. Acetaminophen toxicity with transaminitis secondary to accidental drug overdose. LFTs are better compared with to admission but they increased a little bit compared to yesterday. 10. Disposition. Once this patient is medically clear, he can be discharged to a rehab center. He has been already approved. cc: Domo Lewis MD
--- NOTE | 2019-11-18 14:34 | CARDIOLOGY CONSULTATION ---
DATE: 11/18/2019 REQUESTING PHYSICIAN: Hospitalist Service. REASON FOR CONSULTATION: Patient with seemingly worsening congestive heart failure. CHIEF COMPLAINT: Swelling, weakness, dyspnea. HISTORY: Mr. Will is 78 years of age. He presented to the emergency room on 11/06/2019 at about 10:28 in the morning with complaints of increased lethargy. Apparently, he had taken an overdose of narcotics. His acetaminophen level was very high. They treated that accordingly. Since his admission, they noted that his liver function tests were all abnormal, and they did an ultrasound that shows cholelithiasis and possibly cholecystitis. They have done a HIDA scan that shows no uptake of contrast in the gallbladder, suggesting that the gallbladder is nonfunctional. At any rate, along with that, the patient has been increasingly lethargic. Neurology has seen him. The patient's blood work indicates that his bilirubin is creeping up. His INR is also creeping up. His proBNP is very high at 11,233 pg/mL. They are concerned that he may be developing progressive heart failure. His BUN is also creeping up from 28, up to 45 today. Creatinine is low. The patient denies having chest pain. PAST MEDICAL HISTORY: Very extensive. He has severe coronary heart disease. He has had several interventions to the LAD in the past to the right coronary artery in 2016. Last hospital evaluation in [place] in 2018 showed that his ejection fraction was very low. The patient has received an ICD implantation in 05/2019 for prophylaxis of sudden . He has developed progressive heart failure. He has COPD with home oxygen. He has hypertension, peripheral vascular disease, permanent atrial fibrillation, prostate hypertrophy. PAST SURGICAL HISTORY: Circumcision, implantation of permanent pacemaker/defibrillator in 05/[address] Wellington in [place]. SOCIAL HISTORY: Single. Retired. Lives at home. He has been a smoker for many years. He does not drink. FAMILY HISTORY: Negative. ALLERGIES: Iodinated contrast. REVIEW OF SYSTEMS: The patient had been to the emergency room here at [place] in August and in September of 2019, and was admitted with a suspected pneumonia. The patient was taken to the hospital, treated, and then 3 or 4 weeks later, he ended up in [place], this time with right lower lobe pneumonia. Again, he was treated. An echocardiogram was done in 09/2019 that indicates that his ejection fraction is 20%. Of note, back on 08/26/2019, the patient underwent an exploratory laparotomy with a sigmoid resection. 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 The patient is supposed to follow with the comparison shopper, Dr. King. His history is also positive in the past for prior episodes of pneumonia and admissions to the hospital with acute coronary syndrome. A nuclear stress test was done back in 09/2018, read by Dr. Phillips, indicating the left ventricle is dilated with ejection fraction of 32%, with severe large-sized fixed defect in the inferior inferoapical wall of the left ventricle, consistent with a scar. Back in 03/2019, he had a CT of the chest that showed pulmonary edema. He is chronically dyspneic. He has swelling of the legs. He is in chronic pain, and that is why he took the overdose of narcotics. MEDICATIONS: Home home medications at the time of the present admission include albuterol, amlodipine 2.5 daily, apixaban 5 mg twice a day, aspirin 81 mg daily, cefdinir 300 twice a day, digoxin 0.125 daily, furosemide 1 tablet daily, hydrocodone/acetaminophen, spironolactone 25 daily, Flomax 0.4 mg daily. PHYSICAL EXAMINATION: Vital Signs: Today, blood pressure is 109/65, temperature 97.2 degrees, pulse 73, respirations 18. General: He is awake. He appears to be chronically ill. He mumbles, and his speech is very slurred. He appears to be pale. Significant muscle wasting. HEENT: Some jugular venous distention. Chest: Diminished breath sounds bilaterally. Some dullness to percussion, right base. Heart: Heart sounds are distant, regular. I do not hear any definite gallop or murmur. Abdomen: Distended. He has ascites. Extremities: There is 2+ to 3+ edema. Neurological: He is lethargic, follows some simple commands. LABORATORY AND DIAGNOSTIC DATA: A 12-lead EKG from 11/11/2019 shows atrial fibrillation, rate 93 beats per minute, PVCs, ST abnormality in lateral leads and inferior leads. Blood gas from 11/17/2019 shows pH of 7.46, PO2 of 55, pCO2 of 56. Sodium is 138, potassium 5.0, BUN 45, creatinine 0.9. IMPRESSION: 1. Patient who has chronic systolic heart failure due to ischemic cardiomyopathy, probably with exacerbation. 2. Coronary heart disease, severe, previous stents to left anterior descending and right coronary artery. 3. Permanent/chronic atrial fibrillation. 4. Ascites, elevated bilirubin, elevated INR. This suggests liver dysfunction. This could be cirrhosis of the liver due to chronic passive congestion or something else. 5. Long-term chronic obstructive pulmonary disease with hypercarbic respiratory failure. 6. Recent acetaminophen toxicity. RECOMMENDATION: At this time, we will consider putting him on dobutamine and dopamine infusion, particularly if his blood pressure is running persistently low. We will discuss this with the hospitalist. I am not really sure as to how aggressive they want to be. He already has an AICD. He already has had a heart catheterization last year on 06/12/2019 in [place] that showed that all of his stents were patent. He had a moderate stenosis of the circumflex that had not changed in a while. At that time, they reported significant impairment of the left ventricular ejection fraction. Will follow his hospital course. Prognosis appears to be poor. cc: Paulino Bazzi MD
--- NOTE | 2019-11-18 14:37 | GASTROENTEROLOGY PROGRESS NOTE ---
DATE: 11/18/2019 SUBJECTIVE: Mr. Will is a 78-year-old, male. He was sitting at the side of the bed. The patient mentioned feeling weak. He is currently on a mechanical soft diet and was able to tolerate his diet well. The patient has not had a bowel movement for the last couple of days. He has denied any nausea, vomiting, or abdominal pain. OBJECTIVE: Vital Signs: Temperature 97.2 degrees, pulse 73, respirations 18, blood pressure 109/65, oxygen saturation 100% on 4 L nasal cannula. The patient's weight is 218 pounds. BMI is 30.5 kg/m2. General: He is alert, oriented x3, and in no acute distress. HEENT: Pale conjunctivae. Mild icterus. PERRL. Neck: Supple. Lungs: Coarse breathing heard in the anterior james. Cardiovascular: Regular rate and rhythm. Abdomen: Abdomen is soft. Distended. Hypoactive bowel sounds heard in all 4 quadrants. Extremities: No clubbing, no cyanosis. 2+ pitting edema in the lower extremities bilaterally. Neurologic: Alert and oriented x3. Labs: No new hematology. His chemistries are sodium 138, potassium 5.0, chloride 90, carbon dioxide 38, anion gap 10, BUN 45, creatinine is 0.9, glucose is 125, calcium is 9.3. Total bilirubin 1.56, AST 71, ALT 105, alkaline phosphatase 96, albumin 3.5. PT is 34.2, INR is 3.25. IMPRESSION AND PLAN: 1. Elevated liver enzymes. 2. Tylenol overdose. 3. Coagulopathy. 4. Coronary artery disease. 5. COPD. 6. Congestive heart failure. 7. Gallstones. PLAN: Mr. Will is a 78-year-old, male with a history of coronary artery disease and congestive heart failure. GI has been following him for his Tylenol overdose. The patient needs to follow us up as an outpatient for his elevated liver enzymes. He needs a hematology evaluation for his elevated coags. The patient has received treatment for his acetaminophen overdose. He is currently receiving PPIs twice a day. The patient is on Lasix 40 mg. He is on a bowel regimen of Colace 100 mg twice a day. The plans are to discharge the patient once his Covid-19 test report comes back. We will sign off for now. The patient can follow us up as an outpatient in 4 weeks after he is discharged. Please call us for any further questions or concerns. This plan was discussed with Dr. Pack. Dictated by JAZMIN Byers for Saravanan Pack MD cc: Saravanan Pack MD I have seen and examined the patient myself and I agree with the above plan of care. Please call us with any further questions or concerns. MTDD
[2019-11-18] MEDS: LASIX IV SCH (21:52)
[2019-11-19] MEDS: VENTOLIN HFA INH SCH ×2 (03:30→09:25)
[2019-11-19 06:05] LABS: BASO# 0.01 X1000 (0.0-0.2); BASO% 0.1 % (0.0-0.8); EOS# 0.01 X1000 (0.0-0.7); EOS% 0.1 % (0.0-10.0); HEMATOCRIT 41.6 % (42.0-52.0); HEMOGLOBIN 12.3 g/dL (14.0-18.0); LYMPH# 0.98 X1000 (1.2-3.4); LYMPH% 9.3 % (20.5-51.1); MCH 26.2 PG (27-31); MCHC 29.6 g/dL (33-37); MCV 88.7 FL (81-99); MONO# 1.65 X1000 (0.11-0.59); MONO% 15.6 % (1.7-9.3); NEUT# 7.94 X1000 (1.4-6.5); NEUT% 74.9 % (42.2-75.2); PLT 180 X1000 (130-400); RBC 4.69 XMIL (4.7-6.1); WBC 10.59 X1000 (4.8-10.8)
[2019-11-19 06:09] LABS: INR 2.22; PROTIME 25.2 Seconds (11.0-16.0)
[2019-11-19 06:10] LABS: PTT 41.6 Seconds (22.3-41.8)
[2019-11-19 06:22] LABS: ESTIMATED GFR > 60
[2019-11-19 06:28] LABS: AGAP 8; ALB/GLOB RATIO 1.2; ALBUMIN 3.3 g/dL (3.5-5.0); ALKALINE PHOSPHATASE 124 U/L (32-122); BUN 47 mg/dL (8-22); CALCIUM 9.4 mg/dL (8.8-10.2); CHLORIDE 89 mmol/L (98-107); COSMO 290; GLUCOSE 99 mg/dL (70-104); GOT 64 U/L (10-34); GPT 98 U/L (10-44); MAGNESIUM 2.3 mg/dL (1.5-2.7); PHOSPHORUS 4.1 mg/dL (2.7-4.5); POTASSIUM 4.9 mmol/L (3.5-5.1); SODIUM 139 mmol/L (136-145); TCO2 42 mmol/L (25-35); TOTAL BILIRUBIN 1.65 mg/dL (0.20-1.00)
[2019-11-19] MEDS: LASIX IV SCH (08:51)
[2019-11-19] MEDS: PEPCID PO SCH (08:51)
[2019-11-19] MEDS: ALDACTONE PO SCH (08:51)
[2019-11-19] MEDS: FLOMAX PO SCH (08:51)
[2019-11-19] MEDS: LOPRESSOR PO SCH (08:51)
[2019-11-19] MEDS: ASPIRIN EC PO SCH (08:51)
[2019-11-19] MEDS: COLACE PO SCH (08:51)
[2019-11-19] MEDS: LANOXIN PO SCH (08:52)
[2019-11-19] MEDS: BREO ELLIPTA 200/25 MCG INH INH SCH (09:25)
--- NOTE | 2019-11-19 13:25 | DISCHARGE SUMMARY ---
ADMISSION DATE: 11/06/2019 DISCHARGE DATE: 11/19/2019 isposition f[facility] Rehab DISPOSITION: [facility]. FOLLOWUP: 1. Dr. Eaton. 2. Dr. Carmichael. 3. Dr. Dorsey. CONSULTATION DURING THIS ADMISSION: GI was consulted. Patient was seen by Dr. Carmichael. Surgery was consulted. Patient was seen by Dr. Dorsey. Neurology was consulted. Patient was seen by Dr. Bryant. INVASIVE PROCEDURES DONE DURING THIS ADMISSION: None. IMAGING STUDIES OF SIGNIFICANCE: 1. Initial chest and abdomen x-ray did show lower lung volumes, worsening bibasilar lung opacification. 2. A CT scan of the head showed no evidence of acute intracranial pathology. 3. An abdominal x-ray did show cholelithiasis with possible acute cholecystitis. There was hepatic steatosis. 4. A chest x-ray followup showed no change. 5. A HIDA scan showed delayed opacification of the gallbladder concerning for chronic cholecystitis. ADMISSION DIAGNOSIS: 1. Acetaminophen overdose with toxicity. 2. History of ischemic cardiomyopathy. 3. Chronic atrial fibrillation. 4. Chronic chronic obstructive pulmonary disease on chronic oxygen. 5. Hypertension. 6. Benign prostatic hypertrophy. DIAGNOSIS AT THE TIME OF DISCHARGE: 1. Acute on chronic hypoxemic and hypercarbic respiratory failure improved. 2. Acute on chronic systolic heart failure with dilated ischemic cardiomyopathy. Ejection fraction of 20%. The patient is status post AICD to prevent sudden cardiac . Evaluated here as well by Cardiology. 3. Chronic atrial fibrillation, currently rate controlled. Patient on Eliquis which was withheld because he was coagulopathic and also concern of falls. 4. Severe chronic obstructive pulmonary disease on home oxygen. 5. Global encephalopathy during the hospital course, gradually improving. 6. Cholelithiasis with chronic cholecystitis. Patient was evaluated by surgery. 7. Acetaminophen overdose with toxicity on presentation. The patient was treated. Liver enzymes have normalized. DISCHARGE MEDICATIONS: 1. Tamsulosin 0.4 mg p.o. daily. 2. Furosemide 40 mg p.o. daily. 3. Spironolactone 25 mg p.o. daily. 4. Digoxin 125 mg p.o. daily. 5. Metoprolol 12.5 b.i.d. 6. Entresto 1 tablet p.o. daily. PRESENTING COMPLAINT: He came into the emergency room because of lethargy and apparently taking too much of his pain medicine. He denied wanting to hurt himself. Upon presenting to the emergency room, his toxicology level revealed acetaminophen 57.6. He was initially admitted. Poison Control was consulted. He was managed actively for acetaminophen toxicity. Subsequent levels continues to decline for the past about 10 days ago. His level was to less than 1.2 on 2 subsequent determinations. Mr. Will continues to be quite encephalopathic during the hospital course and was also evaluated by Neurology. At some point a HIDA scan was done which showed possibility of chronic cholecystitis. He was evaluated by surgery who advised against any surgical intervention at this point and recommended just conservative management. Mr. Will was also found to be fluid overload. He is known to have severe systolic dysfunction with known injection fraction of 15-20 ejection fraction of 15-20 percent, severe global hypokinesis on echocardiogram from February 2019. Cardiology was consulted A few modifications have been done to his medications. Mr. Agosto Dumas has been discontinued and he has been advised to avoid any acetaminophen product at least for now. He has been placed on Entresto for his severe systolic dysfunction and will continue with the rest of his other medications. He is going to be discharged to rehab to continue with his physical gnosticist. All the discharge instructions have been discussed with him and he voiced understanding. At the time of discharge, his vitals blood pressure of 113/64, pulse of 68, respirations 20, temperature 97.8 degrees. He continues to be in atrial fibrillation but rate controlled. He still has about 1 to 2+ pedal edema in the lower extremity, but he is not symptomatic. He is about 96% on room air. cc: Wesley Pierre MD Discharge time: 36 minutes [facility]
[2019-11-19 15:32] VITALS: BP 110/75
== END 2019-11-19 16:25 | DRG 917 ==
LOC: SUPCPDRO → ED 09:09 → SUATTDRO 15:25 → ICU 15:25 → 3N 11-10 05:32 → 2N 11-13 15:07
PROVIDERS: ATTEND Internal Medicine